=== PATIENT | female | born 1940 | race Caucasian/White ===

== ENCOUNTER 2017-04-16 10:42 | Inpatient (IN) | payer OTHER ==
[2017-04-16] VITALS (9 sets, daily range): BP systolic 105–133; BP diastolic 65–85; PULSE 88–111; TEMP 36.4–36.8; O2SAT 91–95; BMI 34.3
[~2017-04-16] VITALS: Ht 157.5 cm; Wt 82.6 kg
[2017-04-16] MEDS ORDERED: POLYETHYLENE (MIRALAX) 17 GM PACK PO PRN (14:00)
[2017-04-16] MEDS ORDERED: ONDANSETRON INJ 2 MG/ML 2 ML VIAL IV PRN (14:00)
[2017-04-16] MEDS ORDERED: LEVALBUTEROL 1.25MG/0.5ML NEB INH PRN (14:00)
[2017-04-16] MEDS ORDERED: MAGNESIUM HYDROXIDE SUSP 30 ML UDC PO PRN (14:00)
[2017-04-16] MEDS ORDERED: ALUMINUM/MAGNESIUM/SIMETH (MAALOX MAX) 30 ML UDC PO PRN (14:00)
[2017-04-16] MEDS ORDERED: GLUCOSE 10 TABS/TUBE PO PRN (14:30)
[2017-04-16] MEDS ORDERED: GLUCOSE 40% GEL 15 GM TUBE PO PRN (14:30)
[2017-04-16] MEDS ORDERED: DEXTROSE 50% 50 ML SYR IV PRN (14:30)
[2017-04-16] MEDS ORDERED: GLUCAGON FOR INJ 1 MG VIAL SQ PRN (14:30)
[2017-04-16 14:40] LABS: BASO % 0.1 %; BASO ABS # 0.01 K/uL (0-0.2); HEMATOCRIT 34.4 % (37-47); IG% 0.5 %; LYMPH % 4.4 %; LYMPH ABS # 0.67 K/uL (1.2-3.4); MEAN CELL VOLUME 84.9 fL (80-100); MEAN CORPUSCULAR HEMOGLOBIN 26.2 pg (25-34); MEAN PLATELET VOLUME 9.4 fL (7.4-10.4); MONO % 0.8 %; NEUT % 94.2 %; PLATELET COUNT 319 K/uL (130-400); RED BLOOD COUNT 4.05 M/uL (4.2-5.4); WHITE BLOOD COUNT 15.27 K/uL (4.8-10.8)
[2017-04-16] MEDS ORDERED: FLUT0.15 NAE (14:43)
[2017-04-16] MEDS ORDERED: CRDCD120 PO (14:43)
[2017-04-16] MEDS ORDERED: albuterol (14:43)
[2017-04-16] MEDS ORDERED: METF1000 PO (14:43)
[2017-04-16] MEDS ORDERED: TIOT1SPR INH (14:43)
[2017-04-16] MEDS ORDERED: LNX125 PO (14:43)
[2017-04-16] MEDS ORDERED: IPRA1AER2 INH (14:43)
[2017-04-16] MEDS ORDERED: WARF1TAB PO (14:43)
[2017-04-16] MEDS ORDERED: PRAV80TA2 PO (14:43)
[2017-04-16] MEDS ORDERED: ALPR0.25 PO (14:43)
[2017-04-16] MEDS ORDERED: LVMI SC (14:43)
[2017-04-16] MEDS ORDERED: FRS/40 PO (14:43)
[2017-04-16] MEDS ORDERED: CYM/30 PO (14:43)
[2017-04-16] MEDS ORDERED: FURO-85 PO (14:43)
[2017-04-16] MEDS ORDERED: QUIN10TA25 PO (14:43)
[2017-04-16] MEDS ORDERED: ASPI81TA28 PO (14:43)
[2017-04-16] MEDS ORDERED: MCRK20 PO (14:43)
[2017-04-16] MEDS ORDERED: ADVIN25050 INH (14:43)
[2017-04-16] MEDS ORDERED: MGNO400 PO (14:43)
[2017-04-16] MEDS ORDERED: ALBU18002 INH (14:43)
[2017-04-16 14:47] LABS: COMPLETE YES; MEAN CORPUSCULAR HGB CONC 30.8 g/dl (32-36)
[2017-04-16] MEDS ORDERED: DILT180C PO (14:51)
--- NOTE | 2017-04-16 14:58 | History and Physical ---
History & Physical Date & Time of Service: Apr 16, 2017 at 14:55 Chief Complaint: Copd Exacerbation, Hypoxia Primary Care Physician: Pool Patterson M.D. History of Present Illness Source: patient, hospital records Ms. Leahy is a 77 y/o female with PMHx of COPD, Interstitial Lung Disease, Pulmonary HTN, Diastolic CHF, Persistent Atrial Fibrillation, and T2DM who presents as a direct admission from [facility] for COPD exacerbation and possible pneumonia. Patient is a poor historian due to fixation on her daughter and her recent move and difficulty redirecting. Reviewed [facility] records, [employer], and discussed with patient. Approx. two weeks ago she reports progressively worsening cough and LAND. At baseline she wears 4 L NC and states she feels fine when at rest. With limited exertion she becomes dyspneic. She reports a productive cough of watery/yellow mucus and intermittent dime-sized hemoptysis intermittently. She was seen on 04/01 and again on 04/[address] Crystal as she was not improving. She was initiated on steroid therapy and Zithromax. She reports getting a nebulizer but has not utilized this yet but has been faithful with her inhalers. She also notes chest pain in R lower chest under her breast. Of note, patient's daughter that she recently moved in with was diagnosed with shingles recently but the patient had her vaccine. She reports fever/chills when at [facility] ED but feels this has resolved. She reports poor control of her glucose due to steroid therapy. At [facility], CTA without PE with evidence of parenchymal fibrosis and bilateral ground glass opacities with a R pleural effusion. She was initially started on Ceftriaxone and Zithromax but ultimately converted to Cefepime and Vancomycin. Initial labs revealed: leukocytosis of 20.8, H&H 10/32, BUN/Cr 15/0.7, Lactic 2.6, BNP 1105, and INR 4.89. Past Medical/Surgical History 1. COPD 2. Interstitial Lung Disease 3. Pulmonary HTN 4. Diastolic CHF 5. Persistent Atrial Fibrillation 6. T2DM Family History Brain Tumor Coronary Artery Disease Diabetes mellitus Social History Smoking Status: Never Smoker Smokeless Tobacco Use: No Alcohol Use: none Drug Use: none Marital Status: Housing status: lives with family Occupational Status: retired Immunizations History of Influenza Vaccine: Unknown History of Tetanus Vaccine?: Unknown History of Pneumococcal: Unknown History of Hepatitis B Vaccine: Unknown Multi-Drug Resistant Organisms History of MDRO: No Allergies Coded Allergies: Tomato (Verified Allergy, Unknown, Unknown, 04/16/17) Home Medications Scheduled Aspirin (Aspirin Ec), 81 MG PO DAILY Digoxin (Digoxin), 0.125 MG PO DAILY Diltiazem Hcl Coated Beads (Diltiazem Hcl Er), 1 CAP PO DAILY Duloxetine HCl (Cymbalta), 60 MG PO DAILY Fluticasone Prop/Salmeterol (Advair Diskus 250-50 Mcg/Dose), 1 PUFF INH BID Fluticasone Propionate (Nasal) (Flonase Allergy Relief), 2 SPRAYS JAMIN DAILY Furosemide (Lasix), 40 MG PO DAILY Insulin Detemir (Levemir), 15 UNITS SC HS Ipratropium-Albuterol (Combivent Respimat), 1 PUFFS INH QID Magnesium Oxide (Magnesium-Oxide), 400 MG PO DAILY Metformin Hcl (Glucophage), 1 TAB PO BID Potassium Chloride (Klor-Con M20), 10 MEQ PO DAILY Pravastatin Sodium (Pravastatin Sodium), 1 TAB PO DAILY Quinapril Hcl (Accupril), 10 MG PO HS Tiotropium [place] (Spiriva Respimat), 2 PUFF INH DAILY Warfarin Sodium (Coumadin), 1 MG PO DAILY Scheduled PRN Albuterol Sulfate (Proair Respiclick), 2 PUFFS INH Q6H PRN for SOB/Wheezing Alprazolam (Xanax), 0.25 TAB PO TID PRN for Anxiety Furosemide (Lasix), 20 MG PO DAILY PRN for weight gain Miscellaneous Medications [albuterol] Review of Systems Constitutional: + fever (resolved), + chills (resolved), + fatigue Eyes: No worsening of vision ENT: + problem reported (dry mouth), No nasal symptoms, No sore throat, No trouble swallowing Respiratory: + cough, + sputum (watery/yellow), + dyspnea on exertion, + hemoptysis, No dyspnea at rest Cardiovascular: + chest pain (R below the breast), No palpitations Abdomen: No pain, No nausea, No vomiting, No diarrhea, No constipation, No GI bleeding Musculoskeletal: No swelling, No calf pain Genitourinary - Female: No dysuria Psychiatric: + anxiety Hematologic / Lymphatic: No abnormal bleeding/bruising, No clotting problems Integumentary: No rash Physical Exam Vital Signs Date Time Temp Pulse Resp B/P (MAP) Pulse Ox O2 Delivery O2 Flow Rate FiO2 04/16/17 12:45 36.8 88 28 129/79 91 Nasal Cannula 4.0 04/16/17 12:20 36.6 106 32 133/81 (98) 91 Nasal Cannula 5.0 General Appearance: no apparent distress, + pertinent finding (chronically ill- appearing) Head: normocephalic, atraumatic Eyes: sclerae normal ENT: hearing grossly normal, + pertinent finding (oral mucosa dry) Neck: supple, no JVD, trachea midline Respiratory/Chest: no accessory muscle use, + respiratory distress (mild - pursed lip breathing), + decreased breath sounds (mid-bases bilat) Cardiovascular: no gallop, no murmur, + irregularly irregular Abdomen/GI: normal bowel sounds, non tender, soft Extremities/Musculoskelatal: no calf tenderness, no pedal edema, + swelling ( trace bilat lower extremities) Neurologic/Psych: alert, oriented x 3 Skin: warm/dry, + pallor Diagnostics Laboratory Results Results Past 24 Hours Test 04/16/17 14:21 04/16/17 14:43 Range/Units White Blood Count 15.27 4.8-10.8 K/uL Red Blood Count 4.05 4.2-5.4 M/uL Hemoglobin 10.6 12.0-16.0 g/dL Hematocrit 34.4 37-47 % Mean Corpuscular Volume 84.9 80-100 fL Mean Corpuscular Hemoglobin 26.2 25-34 pg Mean Corpuscular Hemoglobin Concent 30.8 32-36 g/dl Platelet Count 319 130-400 K/uL Mean Platelet Volume 9.4 7.4-10.4 fL Neutrophils (%) (Auto) 94.2 % Lymphocytes (%) (Auto) 4.4 % Monocytes (%) (Auto) 0.8 % Eosinophils (%) (Auto) 0.0 % Basophils (%) (Auto) 0.1 % Neutrophils # (Auto) 14.39 1.4-6.5 K/uL Lymphocytes # (Auto) 0.67 1.2-3.4 K/uL Monocytes # (Auto) 0.12 0.11-0.59 K/uL Eosinophils # (Auto) 0.00 0-0.5 K/uL Basophils # (Auto) 0.01 0-0.2 K/uL RDW Standard Deviation 50.7 36.4-46.3 fL RDW Coefficient of Variation 16.4 11.5-14.5 % Immature Granulocyte % (Auto) 0.5 % Immature Granulocyte # (Auto) 0.08 0.00-0.02 K/uL Bedside Glucose 442 70-90 mg/dl Diagnostic Radiology CHEST ONE VIEW PORTABLE FINDINGS: Moderate cardiomegaly. Diffuse bilateral parenchymal infiltrative change versus pulmonary edema. Mild mid mediastinal fullness possibly reactive. IMPRESSION: Diffuse bilateral parenchymal infiltrates versus pulmonary edema. EKG Atrial fibrillation with rapid ventricular response Abnormal ECG No previous ECGs available Impression Assessment and Plan Ms. Leahy is a 77 y/o female with PMHx of COPD, Interstitial Lung Disease, Pulmonary HTN, Diastolic CHF, Persistent Atrial Fibrillation, and T2DM who presents as a direct admission from [facility] for COPD exacerbation and possible pneumonia. Sepsis from HCAP: - Cefepime 2 g IV BID, Levaquin 750 mg IV daily, and Vancomycin COPD Exacerbation: - Pursed-lip breathing on exam but no wheezing and good airflow in upper portions of lungs - may be more pulmonary HTN complicating presentation - Had Solu-Medrol 125 x 2 doses at [facility] - will hold further systemic steroids and Advair and utilize Pulmicort respules to help control glucose - may need reimplemented if limited response - Xopenex/Atrovent - Spiriva 1 puf daily Pulmonary HTN/Interstitial Lung Disease: - On chronic 4 L Atrial Fibrillation with RVR: - Digoxin 0.125 mg daily, Diltiazem XL 180 mg daily, Supratherapeutic INR: - INR 4.89 without bleeding - reports intermittent dime-sized mucous with blood that is improving -- Monitor for bleeding no immediate need for reversal at this time - Hold Coumadin and trend INR T2DM: UNCONTROLLED - Initiate insulin gtt at least for the first 24 hours to obtain better control and wean to Lantus/SSI coverage - Appreciate glycemic assistance Shingles Exposure: Immunocompromised - Has required frequent steroids for underlying lung disease and daughter with recent eruption of shingles - patient is vaccinated - Has R chest pain under the breast without lesions - likely from coughing and illness but possible preherpatic neuralgia - Acyclovir 500 mg IV Q8H HTN: - Enalapril 10 mg daily Chronic Diastolic CHF: - Mucous membranes dry and imaging from [facility] supports some pulmonary congestion however patient appears dry - 500 cc bolus and run fluids at 75 mL/hr x 2 bags - Implement home dose lasix of 40 mg daily and 20 mg PRN for weight gain unless needing more hydration DVT Prophylaxis: SCDs/Supratherapeutic INR Code Status: FULL RESUSCITATION Disposition: - Recently moved in with daughter - was living in [place] with other family - PT/OT evaluations when respiratory status improved and consult community mental health social worker Attending Addendum: I have physically seen and examined this patient, have directed the physician assistants medical activities, and agree with the H&P as noted above with the following exceptions as noted. The patient is awake, alert and oriented 3, appears chronically ill, normocephalic and atraumatic, lying in bed and in no acute distress. HEENT--PERRL, EOMI, mucous membranes and oropharynx dry. Neck--supple, no JVD or bruits, thyroid normal, trachea midline, no adenopathy. Heart--irregularly irregular, no murmurs, rubs or gallops. Lungs-- decreased breath sounds bilaterally, a few coarse breath sounds, no respiratory distress, no accessory muscle use. Abdomen--normal bowel sounds and soft, nontender and nondistended, no hernias or masses, no organomegaly. Extremities--no cyanosis, clubbing. Trace bilateral pretibial pitting Edema. There are good distal pulses b/l. Dermatologic--normal skin turgor, mild pallor,, warm and dry, no abnormal lymph nodes, no rash. Neurologic--cranial nerves II through XII grossly intact. Rheumatologic--normal range of motion, nontender, muscles and joints. Psychiatric--normal affect. Assessment and Plan: Sepsis from healthcare associated pneumonia/COPD exacerbation/pulmonary hypertension/ILD-- Cefepime 2 g IV twice a day Levaquin 750 mg IV daily Vancomycin IV per renal dosing Xopenex/Atrovent every 6 hours while awake and every 2 hours when necessary. Pulmicort Respules 0.5 mg inhaled twice a day. Received Solu-Medrol 125 mg IV 2 while at [facility]. Would avoid any further IV or oral steroids due to significant hyperglycemia. Atrial fibrillation/hypertension/chronic diastolic CHF-- Digoxin 0.125 mg by mouth daily Diltiazem XL 180 mg by mouth daily. Enalapril 10 mg by mouth daily. Looks very dehydrated at this time. Hold Lasix at this time, and gently rehydrate with normal saline at 75 ML's per hour. Should help rate control. Lopressor 5 mg IV every 4 hours when necessary heart rate greater than 110. INR mildly supratherapeutic at 4.89. Hold any further Coumadin and trend INR. No signs of bleeding. Diabetes mellitus-- Insulin drip is been initiated Shingles exposure in an immunocompromised patient-- Possible pre-herpetic neuralgia with pain in her right breast Place on empiric acyclovir. Level of Care Telemetry Advanced Directives Existing Advance Directive: No Existing Living Will: Yes (Patient states that it is in "[place].") Existing Power of School Psychologist Assistant: No Resuscitation Status FULL RESUSCITATION VTE Prophylaxis VTE Risk Assessment Done? Y/N: Yes Risk Level: Moderate Given or contraindicated: Warfarin (Coumadin), T.E.D. Stockings, SCD's Social Service Consult None Apply
[2017-04-16] MEDS ORDERED: ALPRAZOLAM 0.25 MG TAB PO PRN (15:00)
[2017-04-16] MEDS ORDERED: FUROSEMIDE 20 MG TAB PO PRN (15:00)
[2017-04-16 15:05] LABS: ALB/GLOB RATIO 0.8 (0.9-2); ALKALINE PHOSPHATASE 97 U/L (45-117); ALT/SGPT 23 U/L (12-78); AST/SGOT 19 U/L (15-37); BLOOD UREA NITROGEN 15 mg/dl (7-18); BUN/CREATININE RATIO 15.3 (10-20); CALCIUM 9.1 mg/dl (8.5-10.1); CARBON DIOXIDE 21 mmol/L (21-32); CHLORIDE 100 mmol/L (98-107); CREATININE 0.96 mg/dl (0.60-1.20); GLUCOSE 428 mg/dl (70-99); MAGNESIUM 1.6 mg/dl (1.8-2.4); POTASSIUM 3.8 mmol/L (3.5-5.1); SODIUM 136 mmol/L (136-145)
[2017-04-16 15:09] LABS: INR 4.9 (0.9-1.1); PROTHROMBIN TIME (PATIENT) 56.1 SECONDS (9.0-12.0)
[2017-04-16] MEDS ORDERED: INSULIN ASPART 100 UNITS/ML 3 ML PEN SC ONE (15:15)
[2017-04-16 15:20] LABS: BETA-HYDROXYBUTYRATE 1.16 mg/dL (0.2-2.81)
[2017-04-16] MEDS ORDERED: SODIUM CHLORIDE 0.9% 500ML 500 ML IV ONE (15:30)
[2017-04-16] MEDS ORDERED: INFLUENZA VACCINE HIGH DOSE 65+ 0.5 ML SYR IM. ONE (15:30)
[2017-04-16] MEDS ORDERED: PHARMACY GLYCEMIC MGMT CONSULT PRN (15:31)
[2017-04-16] MEDS ORDERED: INSULIN HUMAN REGULAR IV BOLUS 2 UNIT in SYRINGE 0 ML IV SCH (15:45)
[2017-04-16] MEDS ORDERED: CEFEPIME CONSULT ACTIVE PRN ×2 (16:00)
[2017-04-16] MEDS ORDERED: METHYLPREDNISOLONE IV 60 MG in SYRINGE 0 ML IV SCH (16:00)
[2017-04-16] MEDS ORDERED: PIPERACILL/TAZOBAC CONSULT ACTIVE PRN (16:00)
[2017-04-16] MEDS ORDERED: VANCOMYCIN CONSULT ACTIVE PRN (16:00)
[2017-04-16] MEDS ORDERED: LEVOFLOXACIN CONSULT ACTIVE PRN (16:00)
[2017-04-16] MEDS ORDERED: INFLUENZA ADMINISTRATION CHARGE ONE (16:00)
--- NOTE | 2017-04-16 16:03 | Pharmacy Progress Note ---
Pharmacy Abx Initial Consult Date of Service Apr 16, 2017. Pharmacy Dosing Scope Date of Consult: 04/16/17 Consultation requested by: Daja Gaspar PA-C Pharmacy is consulted to initiate Vancomycin/Levaquin/Cefepime IV dosing therapy , order appropriate labs and adjust drug dose/frequency. Subjective The patient is a 77 year old female admitted on Apr 16, 2017 at 12:35. Objective Height (Feet): 5 Height (Inches): 2.00 Weight (Kilograms): 84.000 Vital Signs (Past 12Hrs) Vital Signs Past 12 Hours Date Time Temp Pulse Resp B/P (MAP) Pulse Ox O2 Delivery O2 Flow Rate FiO2 04/16/17 14:54 36.4 111 20 128/85 (99) 95 Room Air 5.0 04/16/17 12:45 36.8 88 28 129/79 91 Nasal Cannula 4.0 04/16/17 12:20 36.6 106 32 133/81 (98) 91 Nasal Cannula 5.0 Lab Results (24Hrs) Laboratory Tests (24 Hours) Test 04/16/17 14:21 White Blood Count 15.27 K/uL (4.8-10.8) H Red Blood Count 4.05 M/uL (4.2-5.4) L Hemoglobin 10.6 g/dL (12.0-16.0) L Hematocrit 34.4 % (37-47) L Mean Corpuscular Volume 84.9 fL (80-100) Mean Corpuscular Hemoglobin 26.2 pg (25-34) Mean Corpuscular Hemoglobin Concent 30.8 g/dl (32-36) L Platelet Count 319 K/uL (130-400) Mean Platelet Volume 9.4 fL (7.4-10.4) Neutrophils (%) (Auto) 94.2 % Lymphocytes (%) (Auto) 4.4 % Monocytes (%) (Auto) 0.8 % Eosinophils (%) (Auto) 0.0 % Basophils (%) (Auto) 0.1 % Neutrophils # (Auto) 14.39 K/uL (1.4-6.5) H Lymphocytes # (Auto) 0.67 K/uL (1.2-3.4) L Monocytes # (Auto) 0.12 K/uL (0.11-0.59) Eosinophils # (Auto) 0.00 K/uL (0-0.5) Basophils # (Auto) 0.01 K/uL (0-0.2) Assessment & Plan Assessment 77 year old female direct admit from [facility] initiated on Vancomycin/Levaquin/ Cefepime/Acyclovir IV. Pt with presumed healthcare associated pneumonia. Will follow up details in next 24 hours. No cultures ordered. MRSA swab added. Plan Vancomycin IV * Loading dose: 1000 mg prior to arrival to ED ~0930 * Maintenance dose: 1250 mg IV (15 mg/kg) every 18 hours, start now due to insufficient loading dose at outside facility * Goal trough level for lung source: 15 to 20 mcg/mL * Trough level ordered for 04/18/17 prior to 2000 dose. Levaquin * 750 mg IV daily * Reduce tomorrow if CrCl remains <50 mL/min Cefepime * 1 g IV X 1 at outside facility at 0800 * Continue 2g IV every 12 hours for current renal function Acyclovir * In obesity, use IBW * Reduce to 500 mg IV every 8 hours Pharmacy will continue to follow and will adjust dose/frequency as necessary. Thank you.
[2017-04-16] MEDS ORDERED: MAGNESIUM SULFATE 1GM / D5W 1 GM in PREMIXED IN D5W 100 ML IV ONE (16:15)
--- NOTE | 2017-04-16 16:24 | DIAGNOSTIC IMAGING REPORT ---
CHEST ONE VIEW PORTABLE CLINICAL HISTORY: Dyspnea dyspnea COMPARISON STUDY: No previous studies for comparison. FINDINGS: Moderate cardiomegaly. Diffuse bilateral parenchymal infiltrative change versus pulmonary edema. Mild mid mediastinal fullness possibly reactive. IMPRESSION: Diffuse bilateral parenchymal infiltrates versus pulmonary edema. The above report was generated using voice recognition software. It may contain grammatical, syntax or spelling errors. Electronically signed by: Roger Magana M.D. 04/16/2017 4:22 PM Dictated Date/Time: 04/16/2017 4:21 PM
[2017-04-16] MEDS: LEVOFLOXACIN / D5W 750 MG in PREMIXED IN D5W 150 ML IV SCH (16:25)
[2017-04-16] MEDS: SODIUM CHLORIDE 0.9% 1000ML 1,000 ML IV SCH ×2 (16:26→23:50)
[2017-04-16] MEDS: INSULIN REGULAR 250 UNITS in SODIUM CHLORIDE 0.9% 250ML 250 ML IV SCH ×7 (16:29→23:50)
[2017-04-16] MEDS ORDERED: INSULIN ASPART 100 UNITS/ML 3 ML PEN SC SCH (16:30)
--- NOTE | 2017-04-16 16:45 | Pharmacy Progress Note ---
Glycemic Control Intl Consult Date of Service Apr 16, 2017. Scope Glycemic Pharmacist consulted by Daja Gaspar on 04/16/17 for glycemic control and to write orders per LT[facility], located within [facility] inpatient glycemic control protocol Objective Weight (Kilograms): 84.000 Accuchecks BSG (last 24hrs): Test 04/16/17 14:21 04/16/17 14:43 Random Glucose 428 mg/dl (70-99) Bedside Glucose 442 mg/dl (70-90) Laboratory Data (last 24hrs) Test 04/16/17 14:21 Anion Gap 15.0 mmol/L BUN/Creatinine Ratio 15.3 Blood Urea Nitrogen 15 mg/dl Creatinine 0.96 mg/dl Potassium Level 3.8 mmol/L Sodium Level 136 mmol/L White Blood Count 15.27 K/uL Red Blood Count 4.05 M/uL Hemoglobin 10.6 g/dL Hematocrit 34.4 % Mean Corpuscular Volume 84.9 fL Mean Corpuscular Hemoglobin 26.2 pg Mean Corpuscular Hemoglobin Concent 30.8 g/dl Platelet Count 319 K/uL Mean Platelet Volume 9.4 fL Neutrophils (%) (Auto) 94.2 % Lymphocytes (%) (Auto) 4.4 % Monocytes (%) (Auto) 0.8 % Eosinophils (%) (Auto) 0.0 % Basophils (%) (Auto) 0.1 % Neutrophils # (Auto) 14.39 K/uL Lymphocytes # (Auto) 0.67 K/uL Monocytes # (Auto) 0.12 K/uL Eosinophils # (Auto) 0.00 K/uL Basophils # (Auto) 0.01 K/uL Recent Pertinent Medications Outpatient Anti-diabetic Regimen: * Levemir 15 units qHS + metformin 1 gm PO BID Risk Factors for Insulin Resistance: * Steroids: Solu- Medrol 60 mg IV q 8 hours ---> currently on hold * Infection: COPD exacerbation (on vancomycin, cefepime, levaquin) and possible shingles (on acyclovir) * Diet: type 2 diet Assessment & Plan ASSESSMENT: * ADA & AACE recommend a goal blood sugar range 140-180 mg/dl for the majority of critically ill & non-critically ill patients. However, more stringent targets may be selected in individual cases. Will utilize more stringent goal of 100-150mg/dl based on patient age & comorbidities. Additionally, tighter glycemic control is warranted to facilitate infection healing. * Ms Leahy is a 77 y/o F with a PMH of COPD, intersitital lung disease, CHF, and Afib who is admitted for a COPD exacerbation. Per patient, she has haddifficult controlling her blood sugars at home secondary to steroid use. On admission, the patient's blood sugar was over 400 mg/dL. She was initially ordered steroids but then these were held. Home dose of Levemir was continued to prevent a basal deficiency. Will initiate an insulin infusion to obtain glycemic control quickly. PLAN FOR INPATIENT GLYCEMIC CONTROL: * Starting IV insulin infusion per moderate (moderate/severe) stress protocol * Goal Range 100 - 150 mg/dl * In the critical care setting, continuous IV insulin infusion has been shown to be the best method for achieving glycemic targets. * Holding outpatient oral diabetes medications * Basal insulin with LANTUS 15 units SQ HS * Please note that the plan above was derived based on current level of insulin resistance and hospital stress. These recommendations are appropriate for inpatient admission only. Plan of care upon discharge will need to be reassessed to avoid potential outpatient hypo/hyperglycemia. Thank you.
[2017-04-16] MEDS: LEVALBUTEROL 1.25MG/0.5ML NEB INH SCH ×2 (17:41→20:09)
[2017-04-16] MEDS: IPRATROPIUM BROMIDE NEB SOLN 0.02% 2.5 ML VIAL INH SCH ×2 (17:41→20:09)
--- NOTE | 2017-04-16 17:51 | Pulmonary Consultation ---
History General Date of Service: Apr 16, 2017. Stated Complaint: Copd Exacerbation, Hypoxia HPI The patient is a 77 year old female who presents to [facility] with complaints of Copd Exacerbation, Hypoxia. The patient's primary care provider is Pool Patterson M.D.. Ms. Leahy is a 77-year-old female with past medical history of diabetes, who carries a diagnosis of COPD (no documented FEV1) with superimposed interstitial lung disease on 4L NC, chronic atrial fibrillation (on Coumadin), mitral regurgitation grade 3 diastolic dysfunction with elevated pulmonary artery systolic pressures (estimated 60 mmHg) , who presents today as a direct admit from [facility]. She was initially hospitalized for several days in January of this year at [facility] for COPD exacerbation, but hasn't really turned back to her functional baseline status. She states that she has been progressively more short of breath at rest and on exertion. Her exercise tolerance is limited to about 10 steps. She admits to chronic cough associated with whitish sputum production. She denies any orthopnea, or lower extremity edema swelling. Patient was last seen by Dr. Patterson on 04/14/2017. Her home medications include Spiriva 2.5 g per inhalation 2 puffs daily, Advair Diskus 250/50 over 50 one puff twice a day and Combivent Respimat one puff 4 times a day when necessary. She was started on albuterol sulfate nebulizer every 4-6 hours, Z- Hitesh, prednisone 20 mg by mouth twice a day. Overnight on 04/15/2017, patient states that she had increasing shortness of breath associated with right-sided pleuritic chest pain. She states that throughout the course of the day she had episodes of coughing with blood- streaked sputum. However this morning noted to cough up about a dime-sized amount of blood. She called her daughter who prompted her to go to the ER for further evaluation. Chest x-ray showed cardiomegaly with bilateral perihilar, bibasilar airspace disease with chronic interstitial changes. CT chest was done to rule out pulmonary embolism, which was negative. However it showed diffuse parenchymal fibrosis in the lungs with bilateral groundglass opacities. There is also noted to be a right-sided pleural effusion and increased from previous study. Upon arrival to [facility], her initial vital signs were temperature 36.6, pulse 106, respiratory rate of 32, blood pressure 133/81 and saturating 91% on 5 L nasal cannula. Laboratory data showed a sodium of 136, potassium 3.8, chloride of 100, carbon dioxide 21, BUN of 15, creatinine 0.96, random glucose level of 428. POC glucose was 442. Magnesium 1.6. Beta hydroxybutyric acid was 1.16. Troponin is less than 0.015. Anion gap 15. White blood cell count 15, hemoglobin of 10.6, platelet count of 319. Coags showed an INR of 4.9 and PTT of 56.1. EKG showed atrial fibrillation with ventricular rate of 106, There are no ST elevations or T-wave abnormalities present. Historian: patient, other ( EMR) Onset: this morning Severity: moderate Complaint Status: persistent Quality of Pain: sharp Review of Systems Constitutional: reports: as stated in HPI Eyes: reports: as stated in HPI ENT: reports: as stated in HPI Cardiovascular: reports: as stated in HPI Respiratory: reports: as stated in HPI Gastrointestinal: reports: as stated in HPI Genitourinary - Female: reports: as stated in HPI Musculoskeletal: reports: as stated in HPI (a) Integumentary: reports: as stated in HPI Neurologic: reports: as stated in HPI Psychiatric: reports: as stated in HPI Endocrine: as stated in HPI Hematologic / Lymphatic: as stated in HPI Allergic / Immunologic: as stated in HPI All Other Symptoms All Other Systems: Reviewed and Negative Past Medical History Past Medical History: Active Problems 1. Cataract (H26.9) 2. Chronic GERD (K21.9) 3. COPD (chronic obstructive pulmonary disease) with chronic bronchitis (J44.9) 4. Depression (F32.9) 5. Diabetes (E11.9) 6. Hypertension (I10) 7. Interstitial lung disease (J84.9) 8. Pulmonary hypertension (I27.2) Past Medical History 1. History of congestive heart failure (Z86.79) Past Surgical History: Surgical History 1. History of appendectomy 2. History of carpal tunnel surgery 3. History of cholecystectomy 4. History of rotator cuff repair 5. History of tonsillectomy Family History Family History 1. Family history of cardiac disorder-mother 2. Family history of diabetes mellitus-mother 3. Family history of Brain tumor (father) Social History Social History No alcohol use Non smoker, but does admit to long history of second hand smoke exposure HeOriginally from [facility]. Previously worked as a hairdresser Hx Tobacco Use In Past Year?: No Smoking Status: Never Smoker Marital status: Housing status: lives with family Occupational Status: retired Allergies Coded Allergies: Tomato (Verified Allergy, Unknown, Unknown, 04/16/17) Current Medications Reported Home Medications Medications Dose Route/Sig Max Daily Dose Days Date Category Diltiazem Hcl Er (Diltiazem Hcl Coated Beads) 180 Mg Cap 1 Cap PO DAILY 30 04/16/17 Reported Proair Respiclick (Albuterol Sulfate) 108 Mcg/Act Aer 2 Puffs INH Q6H PRN 04/16/17 Reported [albuterol] 04/16/17 Reported Pravastatin Sodium 80 Mg Tab 1 Tab PO DAILY 30 04/16/17 Reported Levemir (Insulin Detemir) 100 Units/Ml Inj 15 Units SC HS 04/16/17 Reported Spiriva Respimat (Tiotropium Rover) 2.5 Mcg/Act Spr 2 Puff INH DAILY 04/16/17 Reported Lasix (Furosemide) 20 Mg Tab 20 Mg PO DAILY PRN 04/16/17 Reported Lasix (Furosemide) 40 Mg Tab 40 Mg PO DAILY 04/16/17 Reported Coumadin (Warfarin Sodium) 1 Mg Tab 1 Mg PO DAILY 04/16/17 Reported Klor-Con M20 (Potassium Chloride) 20 Meq Tabcr 10 Meq PO DAILY 04/16/17 Reported Magnesium-Oxide (Magnesium Oxide) 400 Mg Tab 400 Mg PO DAILY 04/16/17 Reported Flonase Allergy Relief (Fluticasone Propionate (Nasal)) 50 Mcg/Act Spr 2 Sprays JAMIN DAILY 04/16/17 Reported Cymbalta (Duloxetine HCl) 30 Mg Cap 60 Mg PO DAILY 04/16/17 Reported Advair Diskus 250-50 Mcg/Dose (Fluticasone Prop/Salmeterol) 14 Puff/1 Inhaler Aerp 1 Puff INH BID 04/16/17 Reported Combivent Respimat (Ipratropium-Albuterol) 1 Aer Aer 1 Puffs INH QID 04/16/17 Reported Aspirin Ec (Aspirin) 81 Mg Tab 81 Mg PO DAILY 04/16/17 Reported Glucophage (Metformin Hcl) 1,000 Mg Tab 1 Tab PO BID 30 04/16/17 Reported Digoxin 0.125 Mg Tab 0.125 Mg PO DAILY 04/16/17 Reported Accupril (Quinapril HCl) 10 Mg Tab 10 Mg PO HS 04/16/17 Reported Xanax (Alprazolam) 0.25 Mg Tab 0.25 Tab PO TID PRN 04/16/17 Reported Physical Physical Exam Vital Signs: Date Time Temp Pulse Resp B/P (MAP) Pulse Ox O2 Delivery O2 Flow Rate FiO2 04/16/17 14:54 36.4 111 20 128/85 (99) 95 Room Air 5.0 04/16/17 12:45 36.8 88 28 129/79 91 Nasal Cannula 4.0 04/16/17 12:20 36.6 106 32 133/81 (98) 91 Nasal Cannula 5.0 General Appearance: WD/WN, NO APPARENT DISTRESS, other (fatigue) Head: NORMOCEPHALIC, ATRAUMATIC Eyes: PERRLA, NO DISCHARGE, EOMI, SCLERAE NORMAL, CONJUNCTIVAE NORMAL ENT: other (oral mucousa dry) Neck: NORMAL RANGE OF MOTION, NO TENDERNESS, TRACHEA MIDLINE, NO STRIDOR, SUPPLE Respiratory: NO RESPIRATORY DISTRESS, accessory muscle use, other (good air entry bilaterally, fine crackles at bases. No respiratory distress, speaking in full sentences.) Cardiovasular: NORMAL S1S2, irregular rate Abdomen: NON TENDER, NORMAL BOWEL SOUNDS Back: NORMAL INSPECTION Upper Extremities: NO EDEMA, NORMAL ROM Lower Extremities: NO EDEMA, NORMAL ROM, other (chronic venous changes) Pulses: dorsalis pedis (R) (2+), dorsalis pedis (L) (2+) Neuro: ALERT, ORIENTED x 3 Psychiatric: NORMAL AFFECT, NO SUICIDAL IDEATION, CONTRACTS FOR SAFETY Diagnostics Labs Results Past 24 Hours Test 04/16/17 14:21 04/16/17 14:43 Range/Units White Blood Count 15.27 4.8-10.8 K/uL Red Blood Count 4.05 4.2-5.4 M/uL Hemoglobin 10.6 12.0-16.0 g/dL Hematocrit 34.4 37-47 % Mean Corpuscular Volume 84.9 80-100 fL Mean Corpuscular Hemoglobin 26.2 25-34 pg Mean Corpuscular Hemoglobin Concent 30.8 32-36 g/dl Platelet Count 319 130-400 K/uL Mean Platelet Volume 9.4 7.4-10.4 fL Neutrophils (%) (Auto) 94.2 % Lymphocytes (%) (Auto) 4.4 % Monocytes (%) (Auto) 0.8 % Eosinophils (%) (Auto) 0.0 % Basophils (%) (Auto) 0.1 % Neutrophils # (Auto) 14.39 1.4-6.5 K/uL Lymphocytes # (Auto) 0.67 1.2-3.4 K/uL Monocytes # (Auto) 0.12 0.11-0.59 K/uL Eosinophils # (Auto) 0.00 0-0.5 K/uL Basophils # (Auto) 0.01 0-0.2 K/uL RDW Standard Deviation 50.7 36.4-46.3 fL RDW Coefficient of Variation 16.4 11.5-14.5 % Immature Granulocyte % (Auto) 0.5 % Immature Granulocyte # (Auto) 0.08 0.00-0.02 K/uL Prothrombin Time 56.1 9.0-12.0 SECONDS Prothromb Time International Ratio 4.9 0.9-1.1 Sodium Level 136 136-145 mmol/L Potassium Level 3.8 3.5-5.1 mmol/L Chloride Level 100 98-107 mmol/L Carbon Dioxide Level 21 21-32 mmol/L Anion Gap 15.0 3-11 mmol/L Blood Urea Nitrogen 15 7-18 mg/dl Creatinine 0.96 0.60-1.20 mg/dl Est Creatinine Clear Calc Drug Dose 47.8 ml/min Estimated GFR () 65.2 Estimated GFR (Non- 56.2 BUN/Creatinine Ratio 15.3 10-20 Random Glucose 428 70-99 mg/dl Calcium Level 9.1 8.5-10.1 mg/dl Magnesium Level 1.6 1.8-2.4 mg/dl Total Bilirubin 0.4 0.2-1 mg/dl Aspartate Amino Transf (AST/SGOT) 19 15-37 U/L Alanine Aminotransferase (ALT/SGPT) 23 12-78 U/L Alkaline Phosphatase 97 45-117 U/L Troponin I < 0.015 0-0.045 ng/ml Total Protein 7.6 6.4-8.2 gm/dl Albumin 3.3 3.4-5.0 gm/dl Globulin 4.3 2.5-4.0 gm/dl Albumin/Globulin Ratio 0.8 0.9-2 Beta-Hydroxybutyric Acid 1.16 0.2-2.81 mg/dL Bedside Glucose 442 70-90 mg/dl Diagnostic Radiology Chest x-ray 04/16/2017 ([facility]) Findings: The cardiomediastinal silhouette is enlarged, but stable in size. Calcified plaque is seen in the aorta. There are bilateral perihilar airspace opacities. Patchy airspace opacities are seen in the lung bases. There are no pleural effusions. There is no pneumothorax. No acute osseous process. Osseous structures osteopenic Impression: Cardiomegaly with bilateral perihilar and basilar airspace disease and chronic interstitial changes. Findings may represent multilobar pneumonia. CT angiogram chest 04/16/2017 ([facility]) Findings: Pulmonary arteries are adequately opacified without acute or chronic filling defects. The thoracic aorta is normal in course and caliber without dissection or aneurysm. The heart is normal in size without pericardial effusion. Pretracheal and AP window lymph nodes, subcarinal and right hilar nodes and left infrahilar nodes are enlarged and unchanged. There is considerable right-sided parenchymal fibrosis with diffuse groundglass opacities similar to the prior study. There is a small to moderate size right pleural effusion which is increased in size since prior study. Multiple left-sided groundglass opacities are again identified and unchanged. All these could reflect areas of pulmonary edema. The upper abdomen demonstrates no acute pathology. There are no acute fractures. No suspicious bony lesions. Impression: No evidence of pulmonary emboli. There are areas of parenchymal fibrosis the lungs. Groundglass opacities bilaterally are relatively extensive. These could reflect areas of pulmonary edema. These are unchanged. Right-sided pleural effusion is markedly larger. Findings could reflect congestive heart failure. Bilateral hilar and mediastinal lymphadenopathy is unchanged. Impression Assessment and Plan Acute on chronic hypoxemic respiratory failure Pulmonary fibrosis Diastolic CHF Right pleural effusion Hemoptysis Supratherapeutic INR Uncontrolled diabetes She is currently being treated for COPD with superimposed pulmonary fibrosis and pulmonary hypertension by Dr. Patterson. It appears that she is having some progression of disease with diffuse groundglass opacities. This can be seen in pulmonary edema as well. However, clinically she appears dehydrated. Continue supplemental oxygen to maintain an SaO2 above 92%.Obtain ABG. If she should decompensate have the area of BiPAP at bedside. Obtain BNP, Repeat TTE to evaluate cardiac function and valvular abnormalities and right heart pressures. Optimize patients cardiac function with rate control. Hemoptysis--I do not feel this is an intrinsic pulmonary pathology, like a vasculitis but rather due to bleeding from supratherapeutic INR. Therefore I would hold Coumadin. If patient should have any further episodes of hemoptysis I would give the vitamin K. I would like to obtain sputum cultures to rule out infectious etiology. I will give Tesselon perles to decrease cough. I will also send for JACKIE, ANCA, CCP, WILDLIFE REMOVAL SPECIALIST, RF, ESR, CRP, and complement. In the interim continue with broad-spectrum antibiotics as she has had recent hospitalization. Leukocytosis is most likely due to recent steroid use an outpatient. I would also continue with corticosteroids, bronchodilators. She will optimization of hyperglycemic regimen--as she is hyperglycemic, mildly dehydrated with an mildly elevated anion gap. This will be tricky as she needs hydration for increased AG and elevated sugars. Once she is adequately resuscitated. I would resume diuretics and keep in negative balance. I will leave this management to primary team. I do not feel the patient is a candidate for bronchoscopy due to high oxygen requirements and supratherapeutic INR. She should have a full PFT and sleep study done done at some point as an outpatient. Once more clinically stable she may be a candidate for possible transbronchial biopsy versus open lung biopsy for pulmonary fibrosis. I appreciate th consult.
[2017-04-16] MEDS: INSULIN ASPART 100 UNITS/ML 3 ML PEN SC SCH ×2 (18:00→20:38)
[2017-04-16] MEDS: VANCOMYCIN INJ 1,250 MG in SODIUM CHLORIDE 0.9% 250ML 250 ML IV SCH (18:03)
[2017-04-16 18:34] LABS: ARTERIAL BLD GAS O2 SATURATION 93.5 % (90-95); ARTERIAL BLOOD GAS BASE EXCESS 0.2 mEq/L (-9-1.8); ARTERIAL BLOOD GAS HCO3 24 mmol/L (19-24); ARTERIAL BLOOD GAS PO2 73 mm/Hg (80-95); ARTERIAL BLOOD GAS pH 7.47 (7.35-7.45)
[2017-04-16 18:35] LABS: ALLEN TEST POS (POS); O2 ADMINISTRATION 4L
[2017-04-16 18:54] LABS: C-REACTIVE PROTEIN 5.24 mg/dl (0-0.29); RHEUMATOID FACTOR < 10.0 U/mL (0-15)
[2017-04-16] MEDS ORDERED: NURSING DECISION MEDICATION ORDER SCH (19:30)
[2017-04-16] MEDS: CEFEPIME IV 2,000 MG in DEXTROSE 5% 100ML 100 ML IV SCH (19:36)
[2017-04-16] MEDS: BUDESONIDE 0.5 MG/2 ML VIAL (PULMICORT) INH SCH (20:09)
[2017-04-16] MEDS: DEXTROSE 5% IV SCH (20:13)
[2017-04-16] MEDS: ACYCLOVIR SOD IV SCH (20:13)
[2017-04-16] MEDS ORDERED: NURSING VERBAL MED ORDER ONE ×2 (20:30→22:15)
[2017-04-16] MEDS: BENZONATATE 100MG CAP PO SCH (20:34)
[2017-04-16] MEDS: PRAVASTATIN SOD 40 MG TAB PO SCH (20:36)
[2017-04-16] MEDS: ENALAPRIL MALEATE 10 MG TAB PO SCH (20:36)
[2017-04-16] MEDS ORDERED: INSULIN GLARGINE SOLOSTAR 100 UNITS/ML 3 ML PEN SC SCH (21:00)
[2017-04-16] MEDS ORDERED: INSULIN DETEMIR FLEXPEN/FLEX TOUCH 100 UNITS/ML 3ML SC SCH (21:00)
[2017-04-16] MEDS ORDERED: FLUTICASONE/SALMETEROL 250/50 (ADVAIR) 14 PUFF/1 INHALER INH SCH (21:00)
[2017-04-17] VITALS (14 sets, daily range): BP systolic 91–120; BP diastolic 53–73; PULSE 67–122; TEMP 36.3–36.6; O2SAT 81–96; BMI 34.4
[2017-04-17] MEDS ORDERED: NURSING VERBAL MED ORDER ONE
[2017-04-17] MEDS: IPRATROPIUM BROMIDE NEB SOLN 0.02% 2.5 ML VIAL INH SCH ×4 (01:50→18:58)
[2017-04-17] MEDS: LEVALBUTEROL 1.25MG/0.5ML NEB INH SCH ×4 (01:51→18:58)
[2017-04-17] MEDS: INSULIN REGULAR 250 UNITS in SODIUM CHLORIDE 0.9% 250ML 250 ML IV SCH ×4 (02:51→15:47)
[2017-04-17] MEDS: ACYCLOVIR SOD IV SCH ×3 (04:11→20:35)
[2017-04-17] MEDS: DEXTROSE 5% IV SCH ×3 (04:11→20:35)
[2017-04-17] MEDS: CEFEPIME IV 2,000 MG in DEXTROSE 5% 100ML 100 ML IV SCH ×3 (05:37→21:59)
[2017-04-17] MEDS ORDERED: INSULIN ASPART 100 UNITS/ML 3 ML PEN SC SCH (06:30)
[2017-04-17] MEDS: BUDESONIDE 0.5 MG/2 ML VIAL (PULMICORT) INH SCH ×2 (07:08→18:57)
[2017-04-17] MEDS ORDERED: INSULIN DETEMIR FLEXPEN/FLEX TOUCH 100 UNITS/ML 3ML SC ONE (07:30)
[2017-04-17] MEDS ORDERED: PERFLUTREN LIPID MICROSPHERE (DEFINITY) IV ONE (07:58)
[2017-04-17] MEDS: TIOTROPIUM BROMIDE 5 PUFF/90 MCG INH INH SCH (08:45)
[2017-04-17] MEDS: FUROSEMIDE 40 MG TAB PO SCH (08:45)
[2017-04-17] MEDS: MAGNESIUM OXIDE 400 MG TAB PO SCH (08:45)
[2017-04-17] MEDS: FLUTICASONE PROPIONATE NA SPR 16 GM BTL NAE SCH (08:45)
[2017-04-17] MEDS: POTASSIUM CHLORIDE 10 MEQ TABCR PO SCH (08:46)
[2017-04-17] MEDS: DULOXETINE HCL 60 MG CAP PO SCH (08:46)
[2017-04-17] MEDS: ASPIRIN 81 MG ECTAB PO SCH (08:46)
[2017-04-17] MEDS: BENZONATATE 100MG CAP PO SCH ×3 (08:47→20:39)
[2017-04-17] MEDS ORDERED: DILTIAZEM HCL 180 MG CAPCR PO SCH (09:00)
[2017-04-17 09:07] LABS: HEMATOCRIT 29.9 % (37-47); MEAN CELL VOLUME 85.2 fL (80-100); MEAN CORPUSCULAR HEMOGLOBIN 26.8 pg (25-34); MEAN CORPUSCULAR HGB CONC 31.4 g/dl (32-36); MEAN PLATELET VOLUME 9.4 fL (7.4-10.4); PLATELET COUNT 298 K/uL (130-400); RED BLOOD COUNT 3.51 M/uL (4.2-5.4); WHITE BLOOD COUNT 21.83 K/uL (4.8-10.8)
--- NOTE | 2017-04-17 09:17 | Pharmacy Progress Note ---
Glycemic Control Progress Note Date of Service Apr 17, 2017. Scope Glycemic Pharmacist consulted for glycemic control to write orders per [facility] inpatient glycemic control protocol. Objective Accuchecks BSG (last 24hrs): Test 04/16/17 14:21 04/16/17 14:43 04/16/17 16:19 04/16/17 16:58 Random Glucose 428 mg/dl (70-99) Bedside Glucose 442 mg/dl (70-90) 363 mg/dl (70-90) 344 mg/dl (70-90) Test 04/16/17 18:23 04/16/17 19:15 04/16/17 20:12 04/16/17 21:03 Bedside Glucose 280 mg/dl (70-90) 281 mg/dl (70-90) 211 mg/dl (70-90) 263 mg/dl (70-90) Test 04/16/17 21:57 04/16/17 22:56 04/16/17 22:57 04/16/17 23:11 Bedside Glucose 275 mg/dl (70-90) 343 mg/dl (70-90) 250 mg/dl (70-90) Random Glucose 256 mg/dl (70-99) Test 04/17/17 00:36 04/17/17 01:47 04/17/17 02:44 04/17/17 03:55 Bedside Glucose 220 mg/dl (70-90) 211 mg/dl (70-90) 158 mg/dl (70-90) 137 mg/dl (70-90) Test 04/17/17 04:48 04/17/17 07:15 04/17/17 08:42 Bedside Glucose 150 mg/dl (70-90) 226 mg/dl (70-90) HbA1c: Test 04/17/17 08:42 Recent Pertinent Medications Outpatient Anti-diabetic Regimen: * Levemir 15 units qHS + metformin 1 gm PO BID Risk Factors for Insulin Resistance: * Steroids: Solu- Medrol 40 mg IV q 8 hours ---> currently on hold RECEIVED Solu -Medrol 125 mg IV x [address] [facility] and 40 mg here * Infection: COPD exacerbation (on vancomycin, cefepime, levaquin) and possible shingles (on acyclovir) * Diet: type 2 diet Outpatient Anti-Diabetic Meds see above Assessment & Plan ASSESSMENT: See progress note from 04/16/17 for more background info, in short: Pt receiving SQ basal bolus insulin regimen for hyperglycemia secondary to baseline DM (outpatient regimen on hold), stress (COPD exacerbation and possibly shingles), and steroids (Solu-Medrol 60 mg IV q8 hours currently on hold but received one dose) Patient is currently receiving an average of ? (received 10 units of Novolog + 15 of Levemir) units of insulin per day 15 units of basal insulin 10 units of prandial/correctional insulin BSGs ranging 150 - 428 mg/dl over the past 24hrs Changes needed to insulin regimen: AM Fasting BSG = 226 mg/dl. This is in slightly above goal range for patient based on inpatient targets and co-morbidities. The insulin infusion was discontinued this morning at 0400- there was no additional Lantus given. At that time, the insulin infusion was infusing at 5.3 units/hr. Using conservative estimate of 4 units/hour - the patient required around an 96 units for 24 hours....which can equate to around 38 of basal (40-60 split). Gave 35 units of basal this morning as the full 24 hour dose even though patient received 15 units last night. Unfortunately, patient's blood sugar increased to 342 mg/dL at lunch. Insulin infusion restarted as effects of steroids still lingering Post-prandial BSGs are not currently known. As insulin infusion restarted , fix carbohydrate ratio of 1 unit for every 6 grams of carbohydrates consumed. Total daily dose = ~80-90 units. Currently patient has insulin infusion Additional notes / comments: PLAN FOR INPATIENT GLYCEMIC CONTROL: STARTING insulin infusion secondary to hyperglycemia from steroids. STARTING Levemir 35 units SQ x 1 then Levemir 15 units SQ BID (weight-based stress of 2 dosing) STARTING carb ratio to 1 unit per 6 grams CHO consumed Continuing goal range of Low 100 mg/dL - High 150 mg/dL RECOMMENDATIONS FOR DISCHARGE: HbA1C pending * Please note that the plan above was derived based on current level of insulin resistance and hospital stress. These recommendations are appropriate for inpatient admission only. Plan of care upon discharge will need to be reassessed to avoid potential outpatient hypo/hyperglycemia. Thank you.
[2017-04-17 09:20] LABS: PROTHROMBIN TIME (PATIENT) 63.9 SECONDS (9.0-12.0)
[2017-04-17 09:37] LABS: BUN/CREATININE RATIO 27.1 (10-20); CALCIUM 8.8 mg/dl (8.5-10.1); CREATININE 0.77 mg/dl (0.60-1.20); MAGNESIUM 1.7 mg/dl (1.8-2.4); POTASSIUM 3.6 mmol/L (3.5-5.1)
[2017-04-17] MEDS: DILTIAZEM HCL (TIAzac) 180 MG CAPCR PO SCH (09:48)
[2017-04-17 09:54] LABS: ESTIMATED AVERAGE GLUCOSE 197 mg/dl; HA1C FLAG Normal (Normal)
[2017-04-17] MEDS: VANCOMYCIN INJ 1,250 MG in SODIUM CHLORIDE 0.9% 250ML 250 ML IV SCH (10:18)
[2017-04-17 10:32] LABS: INR 5.6 (0.9-1.1)
--- NOTE | 2017-04-17 12:37 | ECHOCARDIOGRAM REPORT ---
*NOTICE TO RECEIVING REPUBLICAN AGENCY This information is strictly Confidential and protected under [place] law. [place] law prohibits you from making any further disclosure of this information unless further disclosure is expressly permitted by the written consent of the person to whom it pertains or is authorized by law. A general authorization for the release of medical or other information is not sufficient for this purpose. Hospital accepts no responsibility if the information is made available to any other person, INCLUDING THE PATIENT. Interpretation Summary * Name: NELLI MOY Study Date: 04/17/2017 07:05 AM BP: 105/66 mmHg * Patient Location: [facility]\S\N287\S\2 HR: 85 * : 1940 (M/d/yyy) Gender: Female Height: 62 in * Age: 77 yrs Ethnicity: CA Weight: 185 lb * Ordering Physician: Irasema Ambrocio * Referring Physician: UNKNOWN * Performed By: Shila Cordova RDCS * * Reason For Study: PULMONARY HTN * BSA: 1.8 m2 * Normal left ventricular systolic function. * Moderate concentric left ventricular hypertrophy. * [id number] right ventricular systolic dysfunction. * Mild right ventricular dilatation. * Mild biatrial dilatation. * Moderate mitral regurgitation. * Mild tricuspid regurgitation. * Elevated estimated central venous pressure. * Severe pulmonary hypertension. * -- Conclusions -- * Aortic valve sclerosis mild, without significant aortic valvular stenosis. Procedure Details * A contrast injection of Definity was performed to improve assessment of LV function. * Contrast was injected into an intravenous site in the right arm. * One vial of Definity ultrasound contrast was diluted in normal saline to a total volume of 10 ml. A total of '2' ml of solution was administered during imaging. * Lot # [id number] of Definity utilized for procedure. * Expiration date MAY 06. * The attending nurse who injected the contrast agent was KEVIN CRYSTAL RN. Left Ventricle * The left ventricle is normal in size. * There is moderate concentric left ventricular hypertrophy. * Ejection Fraction = 65-70%. * Left ventricular systolic function is normal. * Flattened septum is consistent with RV pressure overload. Right Ventricle * The right ventricle is mildly dilated. * The right ventricular systolic function is mild to moderately reduced. * The right ventricular systolic function is reduced as assessed by tricuspid annular plane systolic excursion (TAPSE) (TAPSE <1.6 cm). Atria * The left atrium is mildly dilated. * The right atrium is mildly dilated. Mitral Valve * There is mild mitral annular calcification. * There is no mitral valve stenosis. * There is moderate mitral regurgitation. Tricuspid Valve * The tricuspid valve is normal. * There is no tricuspid stenosis. * There is mild tricuspid regurgitation. * Right ventricular systolic pressure is elevated at >60mmHg. Aortic Valve * The aortic valve is trileaflet. * The aortic valve opens well. * Aortic valve sclerosis mild, without significant aortic valvular stenosis. * No aortic regurgitation is present. Pulmonic Valve * The pulmonic valve is not well visualized. * The pulmonary valve is inadequately visualized, but the Doppler data is adequate for interpretation. * There is no pulmonic valvular stenosis. * There is no significant pulmonary regurgitation. Great Vessels * There is aortic root sclerosis/calcification. * The aortic root is normal size. Pericardium/Pleural * There is no pericardial effusion. Great Vessels * The inferior vena cava is moderately dilated. MMode 2D Measurements and Calculations IVSd 1.5 cm IVSs 1.6 cm LVIDd 4.3 cm LVIDs 2.7 cm LVPWd 1.6 cm LVPWs 1.8 cm IVS/LVPW 0.92 FS 36.7 % EDV(Teich) 83.1 ml ESV(Teich) 27.6 ml EF(Teich) 66.8 % EDV(cubed) 79.5 ml ESV(cubed) 20.2 ml EF(cubed) 74.7 % % IVS thick 8.5 % % LVPW thick 12.9 % LV mass(C)d 269.0 grams LV mass(C)dI 145.5 grams/m\S\2 LV mass(C)s 175.9 grams LV mass(C)sI 95.1 grams/m\S\2 SV(Teich) 55.5 ml SI(Teich) 30.0 ml/m\S\2 SV(cubed) 59.4 ml SI(cubed) 32.1 ml/m\S\2 Ao root diam 3.1 cm Ao root area 7.5 cm\S\2 LA dimension 4.1 cm LA/Ao 1.3 LVAd ap4 18.8 cm\S\2 LVLd ap4 6.9 cm EDV(MOD-sp4) 41.2 ml EDV(sp4-el) 43.4 ml LVAs ap4 9.8 cm\S\2 LVLs ap4 5.7 cm ESV(MOD-sp4) 13.5 ml ESV(sp4-el) 14.3 ml EF(MOD-sp4) 67.3 % EF(sp4-el) 67.0 % LVAd ap2 27.4 cm\S\2 LVLd ap2 7.0 cm EDV(MOD-sp2) 89.9 ml EDV(sp2-el) 91.0 ml LVAs ap2 14.8 cm\S\2 LVLs ap2 5.9 cm ESV(MOD-sp2) 31.9 ml ESV(sp2-el) 31.3 ml EF(MOD-sp2) 64.5 % EF(sp2-el) 65.6 % LVLd %diff 1.6 % EDV(MOD-bp) 60.8 ml LVLs %diff 3.6 % ESV(MOD-bp) 20.5 ml EF(MOD-bp) 66.3 % SV(MOD-sp4) 27.8 ml SI(MOD-sp4) 15.0 ml/m\S\2 SV(MOD-sp2) 58.0 ml SI(MOD-sp2) 31.3 ml/m\S\2 SV(MOD-bp) 40.3 ml SI(MOD-bp) 21.8 ml/m\S\2 SV(sp4-el) 29.1 ml SI(sp4-el) 15.7 ml/m\S\2 SV(sp2-el) 59.7 ml SI(sp2-el) 32.3 ml/m\S\2 Doppler Measurements and Calculations MV E max vicente 153.8 cm/sec MV dec time 0.20 sec Ao V2 max 121.0 cm/sec Ao max PG 5.9 mmHg Ao max PG (full) 2.7 mmHg LV V1 max PG 3.1 mmHg LV V1 max 88.5 cm/sec TR max vicente 347.8 cm/sec
[2017-04-17] MEDS ORDERED: PHYTONADIONE INJ 2.5 MG in SODIUM CHLORIDE 0.9% 50ML 50 ML IV ONE (12:45)
[2017-04-17] MEDS ORDERED: MAGNESIUM SULFATE 1GM / D5W 1 GM in PREMIXED IN D5W 100 ML IV ONE (12:45)
[2017-04-17] MEDS ORDERED: INSULIN HUMAN REGULAR IV BOLUS 2 UNIT in SYRINGE 0 ML IV SCH (12:45)
[2017-04-17] MEDS: INSULIN ASPART 100 UNITS/ML 3 ML PEN SC SCH ×4 (13:21→23:46)
[2017-04-17 14:30] LABS: HEMATOCRIT 29.3 % (37-47)
--- NOTE | 2017-04-17 15:19 | Pulmonology Progress Note ---
Pulmonary Progress Note Date of Service Apr 17, 2017. Attending Dr. Ambrocio Subjective Patient seen and examined. She states that she is feeling better. Mildly short of breath with exertion. Denies any chest pain. She is having some sputum production, but denies any further episodes of hemoptysis. Objective VS reviewed. Tm 36.5, BP 105/66-12/67, P 67-122, RR 18-26, SaO2 81-94% on 4L NC. Currently 2.8 L positive since admission. Gen:AAOx3, NAD, out of bed to chair. Talkative CVS: S1, S2, irregularly irregular Lungs: fine crackles bilaterally, diminished breath sounds at bases Abd: soft/NT/ND/BS+ Ext: trace edema bilateral LE, no cyanosis, clubbing of finger nails Labs reviewed ABG 04/16/2017--7.47/35/73/24/93.5% on 4L NC. WBC 15-->21, Hgb 10.6-->9.4 Glucose 342 Mg 1.7, BNP 1388 PT 63.9, INR 5.6 ESR 61, CRP 5.24 RF < 10, CCP IgG 0.50 JACKIE-pending ANCA-pending C3 and C4-pending Sputum 04/17/2017--gram stain and culture pending Imaging viewed and reviewed by me TTE 04/17/2017 * Reason For Study: PULMONARY HTN * BSA: 1.8 m2 * Normal left ventricular systolic function. * Moderate concentric left ventricular hypertrophy. * [id number] right ventricular systolic dysfunction. * Mild right ventricular dilatation. * Mild biatrial dilatation. * Moderate mitral regurgitation. * Mild tricuspid regurgitation. * Elevated estimated central venous pressure. * Severe pulmonary hypertension. Medications reviewed Assessment & Plan Acute on chronic hypoxemic respiratory failure Pulmonary fibrosis Diastolic CHF Pulmonary HTN Right pleural effusion Hemoptysis--resolved Supratherapeutic INR Uncontrolled diabetes Patient appears to be improving clinically. She continues to be at baseline home oxygen level. She does seem to have an element of diastolic dysfunction on underlying lung disease. BNP is not elevated for her age. TTE shows flattened septum consistent with RV pressure overload. Right ventricle is mildly dilated. RV systolic function is mild to moderately reduced, RV systolic function is reduced as assessed by tricuspid annular plane systolic excursion (TAPSE) ( TAPSE <1.6 cm). ESR, CRP elevated. CCP and RF negative Optimize patients cardiac function with rate control. Hemoptysis--appears to have resolved. Coumadin is on hold. INR is still elevated. Given IV vitamin K. In the interim continue with broad-spectrum antibiotics as she has had recent hospitalization. Leukocytosis is most likely due to recent steroid use an outpatient. Continue with diureses. This remains a challenge as she is requiring increased fluids for insulin I would also continue with taper steroids, bronchodilators. Optimize hyperglycemic regimen F/u sputum cultures to rule out infectious etiology. Contnue with Tessalon Perles to decrease cough. F/u JACKIE, ANCA, PERFORMANCE IMPROVEMENT SPECIALIST and complement. She should have a full PFT and sleep study done done at some point as an outpatient. Once more clinically stable she may be a candidate for possible transbronchial biopsy versus open lung biopsy for pulmonary fibrosis. Discussed with Dr. Garvin Will sign off case. Please contact me if you have any further questions or concerns. Data Medications: Current Inpatient Medications Medications (Trade) Dose Ordered Sig/Monique Route Start Time Stop Time Status Last Admin Dose Admin Acetaminophen (Tylenol Tab) 650 mg Q4H PRN PO 04/16/17 14:00 05/16/17 13:59 Al Hydrox/Mg Hydrox/Simethicone (Maalox Max Susp) 15 ml Q4H PRN PO 04/16/17 14:00 05/16/17 13:59 Magnesium Hydroxide (Milk Of Magnesia Susp) 30 ml Q12H PRN PO 04/16/17 14:00 05/16/17 13:59 Ondansetron HCl (Zofran Inj) 4 mg Q6H PRN IV 04/16/17 14:00 05/16/17 13:59 Polyethylene (Miralax Powder Packet) 17 gm DAILY PRN PO 04/16/17 14:00 05/16/17 13:59 Levofloxacin 750 mg/Prmx 150 ml @ 100 mls/hr Q24H IV 04/16/17 16:00 04/23/17 15:59 04/16/17 16:25 100 MLS/HR Ipratropium Peggs (Atrovent 0.02% 0.5MG/2.5ML Neb) 0.5 mg Q6R INH 04/16/17 15:00 05/16/17 14:59 04/17/17 14:15 0.5 MG Levalbuterol (Xopenex 1.25MG/ 0.5ML Neb) 1.25 mg Q6R INH 04/16/17 15:00 05/16/17 14:59 04/17/17 14:15 1.25 MG Levalbuterol (Xopenex 1.25MG/ 0.5ML Neb) 1.25 mg Q2H PRN INH 04/16/17 14:00 05/16/17 13:59 04/16/17 22:44 1.25 MG Acyclovir Sodium 500 mg/Dextrose 260 ml @ 265 mls/hr Q8H IV 04/16/17 20:00 04/26/17 19:59 04/17/17 12:45 265 MLS/HR Glucose (Glucose 40% Gel) 15-30 GRAMS 15 GRAMS... UD PRN PO 04/16/17 14:30 05/16/17 14:29 Glucose (Glucose Chew Tab) 4-8 Tablets 4 Tabl... UD PRN PO 04/16/17 14:30 05/16/17 14:29 Dextrose (Dextrose 50% 50ML Syringe) 25-50ML OF 50% DW IV FOR... UD PRN IV 04/16/17 14:30 05/16/17 14:29 Glucagon (Glucagon Inj) 1 mg UD PRN SQ 04/16/17 14:30 05/16/17 14:29 Alprazolam (Xanax Tab) 0.0625 mg TID PRN PO 04/16/17 15:00 05/16/17 14:59 Aspirin (Ecotrin Tab) 81 mg DAILY PO 04/17/17 09:00 05/17/17 08:59 04/17/17 08:46 81 MG Digoxin (Lanoxin Tab) 0.125 mg DAILY@1600 PO 04/17/17 16:00 05/17/17 15:59 Duloxetine HCl (Cymbalta Cap) 60 mg DAILY PO 04/17/17 09:00 05/17/17 08:59 04/17/17 08:46 60 MG Salmeterol Xinafoate/ Fluticasone (Advair Diskus 250/50 Inh) 1 puff BID INH 04/16/17 21:00 05/16/17 20:59 Future Hold Fluticasone Propionate (Flonase Nasal Dille) 2 sprays DAILY JAMIN 04/17/17 09:00 05/17/17 08:59 04/17/17 08:45 2 SPRAYS Furosemide (Lasix Tab) 20 mg DAILY PRN PO 04/16/17 15:00 05/16/17 14:59 Furosemide (Lasix Tab) 40 mg DAILY PO 04/17/17 09:00 05/17/17 08:59 04/17/17 08:45 40 MG Magnesium Oxide (Mag-Ox Tab) 400 mg DAILY PO 04/17/17 09:00 05/17/17 08:59 04/17/17 08:45 400 MG Potassium Chloride (Klor-Con M10) 10 meq DAILY PO 04/17/17 09:00 05/17/17 08:59 04/17/17 08:46 10 MEQ Pravastatin Sodium (Pravachol Tab) 80 mg PM PO 04/16/17 21:00 05/16/17 20:59 04/16/17 20:36 80 MG Enalapril Maleate (Vasotec Tab) 10 mg HS PO 04/16/17 21:00 05/16/17 20:59 04/16/17 20:36 10 MG Tiotropium Peggs (Spiriva Handihaler Inhaler) 1 puff QAM INH 04/17/17 09:00 05/17/17 08:59 04/17/17 08:45 1 PUFF Sodium Chloride 1,000 ml @ 75 mls/hr [id number] IV 04/16/17 15:00 04/17/17 17:39 04/16/17 23:50 75 MLS/HR Diltiazem HCl (TIAzac CAP) 180 mg QAM PO 04/17/17 09:00 05/17/17 08:59 04/17/17 09:48 180 MG Miscellaneous Information (Consult Glycemic Management Pharmacy) 1 ea UD PRN N/A 04/16/17 15:31 05/16/17 15:30 Cefepime HCl (Consult) 1 ea UD PRN N/A 04/16/17 16:00 05/16/17 15:59 Levofloxacin (Consult) 1 ea UD PRN N/A 04/16/17 16:00 05/16/17 15:59 Budesonide (Pulmicort Respules 0.5MG/ 2ML Neb Soln) 0.5 mg BIDR INH 04/16/17 20:00 05/16/17 19:59 04/17/17 07:08 0.5 MG Benzonatate (Tessalon Perles Cap) 100 mg TID PO 04/16/17 21:00 05/16/17 20:59 04/17/17 13:51 100 MG Cefepime HCl 2000 mg/Dextrose 112.5 ml @ 200 mls/hr Q8H IV 04/17/17 14:00 04/22/17 23:00 04/17/17 14:16 200 MLS/HR Pantoprazole Sodium (Protonix Tab) 40 mg BID PO 04/17/17 21:00 05/17/17 20:59 Insulin Human Regular 250 units/ Sodium Chloride 252.5 ml @ 0 mls/hr DAILY@1130 IV 04/17/17 12:45 05/17/17 12:44 04/17/17 14:34 2.5 MLS/HR Insulin Aspart (novoLOG ASPART) [facility] 04/17/17 13:00 05/17/17 12:59 04/17/17 13:21 5 UNITS Insulin Detemir (Levemir Flexpen/ FlexTouch) 15 units BID SC 04/17/17 21:00 05/17/17 20:59 I & O: 24-Hour Column 04/18/17 07:59 Intake Total 1477 ml Output Total 200 ml Balance 1277 ml Vital Signs: Date Time Temp Pulse Resp B/P (MAP) Pulse Ox O2 Delivery O2 Flow Rate FiO2 04/17/17 12:00 94 Nasal Cannula 4.0 04/17/17 11:16 36.5 93 20 106/62 (77) 94 4.0 04/17/17 08:00 94 Nasal Cannula 4.0 04/17/17 07:12 85 18 94 Nasal Cannula 4.0 04/17/17 07:05 36.5 122 20 105/66 (79) 81 04/17/17 04:00 Nasal Cannula 4.0 04/17/17 03:56 36.4 67 20 120/67 (84) 92 Nasal Cannula 4.0 04/17/17 01:51 105 26 94 Nasal Cannula 4.0 04/17/17 00:00 Nasal Cannula 4.0 04/16/17 23:39 36.5 100 20 120/78 (92) 92 Nasal Cannula 4.0 04/16/17 22:46 109 22 94 Nasal Cannula 4.0 04/16/17 20:09 99 22 94 Nasal Cannula 4.0 04/16/17 20:00 Nasal Cannula 4.0 04/16/17 19:29 36.5 92 24 105/65 (78) 94 Nasal Cannula 4.0 04/16/17 17:42 104 26 95 Nasal Cannula 4.0 04/16/17 16:00 95 Nasal Cannula 4.0 04/16/17 14:54 36.4 111 20 128/85 (99) 95 Room Air 5.0 Laboratory Results: Last 24 Hours Test 04/16/17 14:43 04/16/17 16:19 04/16/17 16:58 04/16/17 18:01 Bedside Glucose 442 mg/dl 363 mg/dl 344 mg/dl Erythrocyte Sedimentation Rate 61 mm/hr C-Reactive Protein 5.24 mg/dl Pro-B-Type Natriuretic Peptide 1388 pg/ml Rheumatoid Factor < 10.0 U/mL Cyclic Citrullinated Peptide IgG Ab 0.50 U/mL Test 04/16/17 18:17 04/16/17 18:23 04/16/17 19:15 04/16/17 20:12 Arterial Blood pH 7.47 Arterial Blood Partial Pressure CO2 34 mmHg Arterial Blood Partial Pressure O2 73 mm/Hg Arterial Blood HCO3 24 mmol/L Arterial Blood Oxygen Saturation 93.5 % Arterial Blood Base Excess 0.2 mEq/L Arterial Blood Gas Delivery 4L Issa Test POS Bedside Glucose 280 mg/dl 281 mg/dl 211 mg/dl Test 04/16/17 21:03 04/16/17 21:57 04/16/17 22:57 04/16/17 23:11 Bedside Glucose 263 mg/dl 275 mg/dl 250 mg/dl Random Glucose 256 mg/dl Test 04/17/17 00:36 04/17/17 01:47 04/17/17 02:44 04/17/17 03:55 Bedside Glucose 220 mg/dl 211 mg/dl 158 mg/dl 137 mg/dl Test 04/17/17 04:48 04/17/17 07:15 04/17/17 08:42 04/17/17 11:06 Bedside Glucose 150 mg/dl 226 mg/dl 342 mg/dl White Blood Count 21.83 K/uL Red Blood Count 3.51 M/uL Hemoglobin 9.4 g/dL Hematocrit 29.9 % Mean Corpuscular Volume 85.2 fL Mean Corpuscular Hemoglobin 26.8 pg Mean Corpuscular Hemoglobin Concent 31.4 g/dl RDW Standard Deviation 50.1 fL RDW Coefficient of Variation 16.3 % Platelet Count 298 K/uL Mean Platelet Volume 9.4 fL Prothrombin Time 63.9 SECONDS Prothromb Time International Ratio 5.6 Sodium Level 137 mmol/L Potassium Level 3.6 mmol/L Chloride Level 104 mmol/L Carbon Dioxide Level 23 mmol/L Anion Gap 10.0 mmol/L Blood Urea Nitrogen 21 mg/dl Creatinine 0.77 mg/dl Est Creatinine Clear Calc Drug Dose 60.0 ml/min Estimated GFR () 85.1 Estimated GFR (Non- 73.4 BUN/Creatinine Ratio 27.1 Random Glucose 257 mg/dl Estimated Average Glucose 197 mg/dl Hemoglobin A1c 8.5 % Calcium Level 8.8 mg/dl Magnesium Level 1.7 mg/dl Test 04/17/17 13:55 04/17/17 14:23 Hemoglobin 9.3 g/dL Hematocrit 29.3 % Bedside Glucose 290 mg/dl
[2017-04-17] MEDS: LEVOFLOXACIN / D5W 750 MG in PREMIXED IN D5W 150 ML IV SCH (15:54)
[2017-04-17] MEDS: DIGOXIN 0.125 MG TAB PO SCH (15:57)
--- NOTE | 2017-04-17 16:30 | Medical Student: [facility] ---
Med Student Progress Note Date of Service Apr 17, 2017. Subjective Pt evaluation today including: conversation w/ patient, physical exam, chart review, lab review, review of studies Pt is a 77 yo F with a PMH COPD, ILD, Pulmonary HTN, Diastolic CHF, Persistent A.fib and T2DM, who was transferred here from [facility] with concern for COPD exacerbation vs worsening pulmonary fibrosis. her symptoms include, severe dyspnea on exertion and a productive cough of yellow sputum. She is on 4 L NC. She continues to feel very short of breath. She notes that with transferring from bed to chair she becomes signficantly dyspnic. "I'm alright if I don't move." She thinks she has improved somewhat. She received 2 125 mg doses of Steroids at [facility] and now her blood glucose levels have been very high. Her INR was also >5 today. Review of Systems Constitutional: No fever, No chills, No sweats, No weakness Respiratory: + cough, + sputum (yellow), + shortness of breath, + dyspnea on exertion (significant), No wheezing Cardiac: No chest pain, No palpitations Abdomen: No pain, No nausea, No vomiting, No diarrhea, No constipation Musculoskeletal: No joint pain, No muscle pain Female : No dysuria, No urinary frequency Objective Vital Signs Date Time Temp Pulse Resp B/P (MAP) Pulse Ox O2 Delivery O2 Flow Rate FiO2 04/17/17 15:57 68 04/17/17 14:57 36.4 73 20 91/53 (66) 96 04/17/17 14:49 85 18 94 Nasal Cannula 4.0 04/17/17 12:00 94 Nasal Cannula 4.0 04/17/17 11:16 36.5 93 20 106/62 (77) 94 4.0 04/17/17 08:00 94 Nasal Cannula 4.0 04/17/17 07:12 85 18 94 Nasal Cannula 4.0 04/17/17 07:05 36.5 122 20 105/66 (79) 81 04/17/17 04:00 Nasal Cannula 4.0 04/17/17 03:56 36.4 67 20 120/67 (84) 92 Nasal Cannula 4.0 04/17/17 01:51 105 26 94 Nasal Cannula 4.0 04/17/17 00:00 Nasal Cannula 4.0 04/16/17 23:39 36.5 100 20 120/78 (92) 92 Nasal Cannula 4.0 04/16/17 22:46 109 22 94 Nasal Cannula 4.0 04/16/17 20:09 99 22 94 Nasal Cannula 4.0 04/16/17 20:00 Nasal Cannula 4.0 04/16/17 19:29 36.5 92 24 105/65 (78) 94 Nasal Cannula 4.0 04/16/17 17:42 104 26 95 Nasal Cannula 4.0 Physical Exam General Appearance: WD/WN, no apparent distress (resting comfortably. Becomes dyspnic while talking. ) ENT: hearing grossly normal, pharynx normal Neck: supple, no adenopathy, thyroid normal Respiratory/Chest: + accessory muscle use, + crackles (fine. diffuse bilaterally) Cardiovascular: no murmur, + irregularly irregular Abdomen: normal bowel sounds, non tender, soft, no organomegaly Extremities: normal inspection, no pedal edema Neurologic/Psychiatric: alert, normal mood/affect, oriented x 3 Skin: normal color, warm/dry, no rash Laboratory Results Last 24 Hours Test 04/16/17 16:19 04/16/17 16:58 04/16/17 18:01 04/16/17 18:17 Bedside Glucose 363 mg/dl 344 mg/dl Erythrocyte Sedimentation Rate 61 mm/hr C-Reactive Protein 5.24 mg/dl Pro-B-Type Natriuretic Peptide 1388 pg/ml Rheumatoid Factor < 10.0 U/mL Cyclic Citrullinated Peptide IgG Ab 0.50 U/mL Arterial Blood pH 7.47 Arterial Blood Partial Pressure CO2 34 mmHg Arterial Blood Partial Pressure O2 73 mm/Hg Arterial Blood HCO3 24 mmol/L Arterial Blood Oxygen Saturation 93.5 % Arterial Blood Base Excess 0.2 mEq/L Arterial Blood Gas Delivery 4L Issa Test POS Test 04/16/17 18:23 04/16/17 19:15 04/16/17 20:12 04/16/17 21:03 Bedside Glucose 280 mg/dl 281 mg/dl 211 mg/dl 263 mg/dl Test 04/16/17 21:57 04/16/17 22:57 04/16/17 23:11 04/17/17 00:36 Bedside Glucose 275 mg/dl 250 mg/dl 220 mg/dl Random Glucose 256 mg/dl Test 04/17/17 01:47 04/17/17 02:44 04/17/17 03:55 04/17/17 04:48 Bedside Glucose 211 mg/dl 158 mg/dl 137 mg/dl 150 mg/dl Test 04/17/17 07:15 04/17/17 08:42 04/17/17 11:06 04/17/17 13:55 Bedside Glucose 226 mg/dl 342 mg/dl White Blood Count 21.83 K/uL Red Blood Count 3.51 M/uL Hemoglobin 9.4 g/dL 9.3 g/dL Hematocrit 29.9 % 29.3 % Mean Corpuscular Volume 85.2 fL Mean Corpuscular Hemoglobin 26.8 pg Mean Corpuscular Hemoglobin Concent 31.4 g/dl RDW Standard Deviation 50.1 fL RDW Coefficient of Variation 16.3 % Platelet Count 298 K/uL Mean Platelet Volume 9.4 fL Prothrombin Time 63.9 SECONDS Prothromb Time International Ratio 5.6 Sodium Level 137 mmol/L Potassium Level 3.6 mmol/L Chloride Level 104 mmol/L Carbon Dioxide Level 23 mmol/L Anion Gap 10.0 mmol/L Blood Urea Nitrogen 21 mg/dl Creatinine 0.77 mg/dl Est Creatinine Clear Calc Drug Dose 60.0 ml/min Estimated GFR () 85.1 Estimated GFR (Non- 73.4 BUN/Creatinine Ratio 27.1 Random Glucose 257 mg/dl Estimated Average Glucose 197 mg/dl Hemoglobin A1c 8.5 % Calcium Level 8.8 mg/dl Magnesium Level 1.7 mg/dl Test 04/17/17 14:23 04/17/17 15:41 Bedside Glucose 290 mg/dl 240 mg/dl Assessment and Plan Assessment and Plan: COPD exacerbation vs HCAP vs worsened ILD -CXR - shows ground glass opacities which could indicate progression of pulmonary fibrosis -Cefepime 2g IV BID +Lefaquin 750mg IV + Vancomycin 1250 mg q 18hrs +Aculcovir 500 IV q 8 hrs to cover for possible HCAP. -Atrovent, Flonase and Spiriva Supratherapeutic INR -IV Vitamin K given -INR checks q 12 hours -hold coumadin T2DM -uncontrolled sugars while inpt following steroid doses at [facility] -IV insulin drip in place. Hourly sugars trending down. -Diabetes diet -Metformin held inpt -Lantus, Novolog SSI Persistent A.fib -rate controlled -Dilt 180 mg daily -Digoxin 0.125 mg daily -hold Coumadin as supratherapeutic INR -Aspirin 81 mg Pulmonary HTN -obtain echo to evaluate pressures Diastolic CHF -PO fluid restriction Lasix 40 mg BID HTN -enalapril Depression/Anxiety -Duloxetine 60 mg daily Hyperlipidemia -Pravastatin 80 mg daily GI PPX Protonix 40 mg DVT PPX none, as supratherapeutic INR Full Resusictaton Dispo: Tele. Continued [facility] stay due to: multiple IV medications needed Discharge planning: uncertain
--- NOTE | 2017-04-17 17:39 | Progress Note ---
Subjective Date of Service: Apr 17, 2017. Subjective pt is short of breath at baseline, now worse, typically wears home oxygen Review of Systems Constitutional: No fever, No chills Respiratory: + cough, + shortness of breath, + dyspnea on exertion, No sputum Cardiac: + edema (trace), No chest pain Abdomen: No pain, No nausea, No vomiting Objective Vital Signs Date Time Temp Pulse Resp B/P (MAP) Pulse Ox O2 Delivery O2 Flow Rate FiO2 04/17/17 16:00 94 Nasal Cannula 4.0 04/17/17 15:57 68 04/17/17 14:57 36.4 73 20 91/53 (66) 96 04/17/17 14:49 85 18 94 Nasal Cannula 4.0 04/17/17 12:00 94 Nasal Cannula 4.0 04/17/17 11:16 36.5 93 20 106/62 (77) 94 4.0 04/17/17 08:00 94 Nasal Cannula 4.0 04/17/17 07:12 85 18 94 Nasal Cannula 4.0 04/17/17 07:05 36.5 122 20 105/66 (79) 81 04/17/17 04:00 Nasal Cannula 4.0 04/17/17 03:56 36.4 67 20 120/67 (84) 92 Nasal Cannula 4.0 04/17/17 01:51 105 26 94 Nasal Cannula 4.0 04/17/17 00:00 Nasal Cannula 4.0 04/16/17 23:39 36.5 100 20 120/78 (92) 92 Nasal Cannula 4.0 04/16/17 22:46 109 22 94 Nasal Cannula 4.0 04/16/17 20:09 99 22 94 Nasal Cannula 4.0 04/16/17 20:00 Nasal Cannula 4.0 04/16/17 19:29 36.5 92 24 105/65 (78) 94 Nasal Cannula 4.0 04/16/17 17:42 104 26 95 Nasal Cannula 4.0 Physical Exam General Appearance: WD/WN, + moderate distress Neck: supple, no JVD Respiratory/Chest: chest non-tender, + decreased breath sounds, + accessory muscle use, + rales Cardiovascular: regular rate, rhythm, no murmur Abdomen: normal bowel sounds, non tender, soft Extremities: no calf tenderness, + pedal edema, + swelling Neurologic/Psychiatric: alert, oriented x 3 Laboratory Results Last 24 Hours Test 04/16/17 18:01 04/16/17 18:17 04/16/17 18:23 04/16/17 19:15 Erythrocyte Sedimentation Rate 61 mm/hr C-Reactive Protein 5.24 mg/dl Pro-B-Type Natriuretic Peptide 1388 pg/ml Rheumatoid Factor < 10.0 U/mL Cyclic Citrullinated Peptide IgG Ab 0.50 U/mL Arterial Blood pH 7.47 Arterial Blood Partial Pressure CO2 34 mmHg Arterial Blood Partial Pressure O2 73 mm/Hg Arterial Blood HCO3 24 mmol/L Arterial Blood Oxygen Saturation 93.5 % Arterial Blood Base Excess 0.2 mEq/L Arterial Blood Gas Delivery 4L Issa Test POS Bedside Glucose 280 mg/dl 281 mg/dl Test 04/16/17 20:12 04/16/17 21:03 04/16/17 21:57 04/16/17 22:57 Bedside Glucose 211 mg/dl 263 mg/dl 275 mg/dl 250 mg/dl Test 04/16/17 23:11 04/17/17 00:36 04/17/17 01:47 04/17/17 02:44 Random Glucose 256 mg/dl Bedside Glucose 220 mg/dl 211 mg/dl 158 mg/dl Test 04/17/17 03:55 04/17/17 04:48 04/17/17 07:15 04/17/17 08:42 Bedside Glucose 137 mg/dl 150 mg/dl 226 mg/dl White Blood Count 21.83 K/uL Red Blood Count 3.51 M/uL Hemoglobin 9.4 g/dL Hematocrit 29.9 % Mean Corpuscular Volume 85.2 fL Mean Corpuscular Hemoglobin 26.8 pg Mean Corpuscular Hemoglobin Concent 31.4 g/dl RDW Standard Deviation 50.1 fL RDW Coefficient of Variation 16.3 % Platelet Count 298 K/uL Mean Platelet Volume 9.4 fL Prothrombin Time 63.9 SECONDS Prothromb Time International Ratio 5.6 Sodium Level 137 mmol/L Potassium Level 3.6 mmol/L Chloride Level 104 mmol/L Carbon Dioxide Level 23 mmol/L Anion Gap 10.0 mmol/L Blood Urea Nitrogen 21 mg/dl Creatinine 0.77 mg/dl Est Creatinine Clear Calc Drug Dose 60.0 ml/min Estimated GFR () 85.1 Estimated GFR (Non- 73.4 BUN/Creatinine Ratio 27.1 Random Glucose 257 mg/dl Estimated Average Glucose 197 mg/dl Hemoglobin A1c 8.5 % Calcium Level 8.8 mg/dl Magnesium Level 1.7 mg/dl Test 04/17/17 11:06 04/17/17 13:55 04/17/17 14:23 04/17/17 15:41 Bedside Glucose 342 mg/dl 290 mg/dl 240 mg/dl Hemoglobin 9.3 g/dL Hematocrit 29.3 % Test 04/17/17 16:27 Bedside Glucose 192 mg/dl Assessment and Plan 77 y/o female with acute on chronic hypoxic respiratory failure and lung infiltrates seen on CXR, not clear if infectious or progressive fibrotic changes , not helped with antibiotics and steroids PMHx of COPD, Interstitial Lung Disease, Pulmonary HTN, Diastolic CHF, Persistent Atrial Fibrillation, and T2DM who presents as a direct admission from [facility] for COPD exacerbation and possible pneumonia. possibility of gram negative pneumonia Cefepime 2 g IV BID, Levaquin 750 mg IV daily, and stop Vancomycin as negative mrsa swap, added acyclovir as had family exposure to shingles cute on chronic hypoxic respiratory failure, seen by pulmonary who do not recommend steroids, continue - Xopenex/Atrovent - Spiriva 1 puf daily Pulmonary HTN/Interstitial Lung Disease:, will have TTE to comment on pulmonary pressures and right heart function - On chronic 4 L Atrial Fibrillation with RVR: improved will continue- Digoxin 0.125 mg daily, Diltiazem XL 180 mg daily, Supratherapeutic INR:given vitamin k 2.5 mg on 04/17- Hold Coumadin and trend INR T2DM: UNCONTROLLED, insulin gtt, glycemic assistance HTN:- Enalapril 10 mg daily Chronic Diastolic CHF:home dose lasix of 40 mg daily and 20 mg PRN for weight gain unless needing more hydration DVT Prophylaxis: SCDs/Supratherapeutic INR Continued [facility] stay due to: multiple IV medications needed Discharge planning: uncertain
[2017-04-17] MEDS: PANTOprazole SOD 40 MG TAB PO SCH (20:40)
[2017-04-17] MEDS: PRAVASTATIN SOD 40 MG TAB PO SCH (20:40)
[2017-04-17] MEDS: ENALAPRIL MALEATE 10 MG TAB PO SCH (20:42)
[2017-04-17] MEDS: INSULIN DETEMIR FLEXPEN/FLEX TOUCH 100 UNITS/ML 3ML SC SCH (20:44)
[2017-04-17] MEDS ORDERED: INSULIN DETEMIR FLEXPEN/FLEX TOUCH 100 UNITS/ML 3ML SC SCH (21:00)
[2017-04-17] MEDS: ACETAMINOPHEN 325 MG TAB PO PRN (22:03)
[2017-04-18] VITALS (9 sets, daily range): BP systolic 106–140; BP diastolic 64–91; PULSE 78–109; TEMP 36.4–36.6; O2SAT 90–94
[2017-04-18] MEDS: IPRATROPIUM BROMIDE NEB SOLN 0.02% 2.5 ML VIAL INH SCH ×4 (01:28→19:27)
[2017-04-18] MEDS: LEVALBUTEROL 1.25MG/0.5ML NEB INH SCH ×4 (01:28→19:27)
[2017-04-18] MEDS ORDERED: INSULIN ASPART 100 UNITS/ML 3 ML PEN SC SCH (02:00)
[2017-04-18] MEDS: INSULIN ASPART 100 UNITS/ML 3 ML PEN SC SCH ×5 (04:00→21:48)
[2017-04-18] MEDS: ACYCLOVIR SOD IV SCH ×2 (04:11→12:02)
[2017-04-18] MEDS: DEXTROSE 5% IV SCH ×2 (04:11→12:02)
[2017-04-18] MEDS: CEFEPIME IV 2,000 MG in DEXTROSE 5% 100ML 100 ML IV SCH ×3 (05:39→21:43)
[2017-04-18] MEDS: ACETAMINOPHEN 325 MG TAB PO PRN ×2 (06:33→16:07)
[2017-04-18] MEDS: BUDESONIDE 0.5 MG/2 ML VIAL (PULMICORT) INH SCH ×2 (07:17→19:27)
[2017-04-18 07:19] LABS: HEMATOCRIT 29.8 % (37-47); MEAN CELL VOLUME 84.7 fL (80-100); MEAN CORPUSCULAR HEMOGLOBIN 26.7 pg (25-34); MEAN CORPUSCULAR HGB CONC 31.5 g/dl (32-36); MEAN PLATELET VOLUME 9.1 fL (7.4-10.4); PLATELET COUNT 299 K/uL (130-400); RED BLOOD COUNT 3.52 M/uL (4.2-5.4); WHITE BLOOD COUNT 23.64 K/uL (4.8-10.8)
[2017-04-18 07:26] LABS: INR 1.8 (0.9-1.1); PROTHROMBIN TIME (PATIENT) 19.7 SECONDS (9.0-12.0)
[2017-04-18 07:48] LABS: BUN/CREATININE RATIO 27.6 (10-20); CALCIUM 8.6 mg/dl (8.5-10.1); CREATININE 0.71 mg/dl (0.60-1.20); MAGNESIUM 1.9 mg/dl (1.8-2.4); POTASSIUM 3.6 mmol/L (3.5-5.1)
[2017-04-18] MEDS: FLUTICASONE PROPIONATE NA SPR 16 GM BTL NAE SCH (08:04)
[2017-04-18] MEDS: TIOTROPIUM BROMIDE 5 PUFF/90 MCG INH INH SCH (08:05)
[2017-04-18] MEDS: PANTOprazole SOD 40 MG TAB PO SCH ×2 (08:06→21:50)
[2017-04-18] MEDS: DILTIAZEM HCL (TIAzac) 180 MG CAPCR PO SCH (08:06)
[2017-04-18] MEDS: MAGNESIUM OXIDE 400 MG TAB PO SCH (08:07)
[2017-04-18] MEDS: ASPIRIN 81 MG ECTAB PO SCH (08:07)
[2017-04-18] MEDS: BENZONATATE 100MG CAP PO SCH ×3 (08:07→21:50)
[2017-04-18] MEDS: DULOXETINE HCL 60 MG CAP PO SCH (08:07)
[2017-04-18] MEDS: POTASSIUM CHLORIDE 10 MEQ TABCR PO SCH (08:07)
[2017-04-18] MEDS: FUROSEMIDE 40 MG TAB PO SCH (08:08)
[2017-04-18] MEDS: INSULIN DETEMIR FLEXPEN/FLEX TOUCH 100 UNITS/ML 3ML SC SCH ×2 (08:14→21:49)
--- NOTE | 2017-04-18 09:28 | Pharmacy Progress Note ---
Glycemic Control Progress Note Date of Service Apr 18, 2017. Scope Glycemic Pharmacist consulted for glycemic control to write orders per [facility] inpatient glycemic control protocol. Objective Accuchecks BSG (last 24hrs): Test 04/17/17 11:06 04/17/17 14:23 04/17/17 15:41 04/17/17 16:27 Bedside Glucose 342 mg/dl (70-90) 290 mg/dl (70-90) 240 mg/dl (70-90) 192 mg/dl (70-90) Test 04/17/17 17:40 04/17/17 18:31 04/17/17 20:28 04/17/17 22:05 Bedside Glucose 184 mg/dl (70-90) 165 mg/dl (70-90) 104 mg/dl (70-90) 174 mg/dl (70-90) Test 04/17/17 22:58 04/17/17 23:41 04/18/17 04:12 04/18/17 07:08 Bedside Glucose 172 mg/dl (70-90) 141 mg/dl (70-90) 86 mg/dl (70-90) Random Glucose 154 mg/dl (70-99) Test 04/18/17 07:10 Bedside Glucose 160 mg/dl (70-90) HbA1c: Test 04/17/17 08:42 Hemoglobin A1c 8.5 % (4.5-5.6) H Recent Pertinent Medications The patient is currently receiving: * Basal insulin: Levemir 15 units every 12 hours * Correctional Insulin: Novolog Correction per scale ACHS Goal Range: Low 110 mg/dL - High 140 mg/dL Correction Factor: 20 mg/dL/unit * Prandial insulin: Per carb ratio of 1 unit per 6 grams CHO consumed Outpatient Anti-Diabetic Meds Levemir 15 units Q HS Metformin 1gm PO BID Assessment & Plan ASSESSMENT: 04/18/17 * Patient presented on 04/16 with severe hyperglycemia. IV insulin drip was initiated and subsequently discontinued the AM on 04/17, however BSGs quickly rebounded back into the 300's - likely due to insufficient basal insulin at the time the drip was discontinued. Insulin drip was again started and subsequently discontinued last evening. * This AM fasting BSG 86-154 with 50 units of basal insulin on board. The patient is currently ordered 2x her home dose of Levemir, which would be equivalent to a moderate-severe stress dose based upon weight. Of note, she had required a fair amount of IV insulin (~3-5units/hr) despite receiving Levemir SQ. Will continue the same for now as the fasting BSG at acceptable level this AM, but would have a low threshold for increasing the basal dose. * The current Novolog CF and CR are reasonable starting points PLAN FOR INPATIENT GLYCEMIC CONTROL: * Continuing Levemir 15 units SQ BID for now * Continuing correction factor of 20 mg/dl/unit * Continuing carb ratio of 1 unit per 6 grams CHO consumed * Continuing goal range of Low 110 mg/dL - High 140 mg/dL * Please note that the plan above was derived based on current level of insulin resistance and hospital stress. These recommendations are appropriate for inpatient admission only. Plan of care upon discharge will need to be reassessed to avoid potential outpatient hypo/hyperglycemia. Thank you.
[2017-04-18] MEDS ORDERED: POTASSIUM CHLORIDE 20 MEQ TABCR PO ONE (15:00)
[2017-04-18] MEDS ORDERED: FUROSEMIDE INJ 20 MG in SYRINGE 0 ML IV ONE (15:00)
[2017-04-18] MEDS: LEVOFLOXACIN / D5W 750 MG in PREMIXED IN D5W 150 ML IV SCH (16:07)
[2017-04-18] MEDS: DIGOXIN 0.125 MG TAB PO SCH (16:08)
[2017-04-18] MEDS ORDERED: VANCOMYCIN TROUGH SCH (19:30)
[2017-04-18] MEDS ORDERED: ACYCLOVIR SOD INJ 500 MG in DEXTROSE 5% 100ML 100 ML IV SCH (20:00)
--- NOTE | 2017-04-18 21:02 | Progress Note ---
Subjective Date of Service: Apr 18, 2017. Subjective Pt evaluation today including: conversation w/ patient, physical exam, chart review, lab review, review of studies (cxr), review of inpatient medication list Pain: none PO Intake: "too good!" Voiding: no voiding problems patient with ongoing small amounts of hemoptysis, about a teaspoon, about 1-2x' s each day still with LAND tele with a. fib, rates decently controlled but feels BETTER than at admission baseline, dry weight is about 180 pounds Review of Systems Constitutional: No fever Cardiac: No chest pain Abdomen: No pain Objective Vital Signs Date Time Temp Pulse Resp B/P (MAP) Pulse Ox O2 Delivery O2 Flow Rate FiO2 04/18/17 16:08 97 04/18/17 16:01 36.6 95 22 124/75 (91) 93 Nasal Cannula 4.0 04/18/17 16:00 Nasal Cannula 4.0 04/18/17 14:20 78 20 93 Nasal Cannula 4.0 04/18/17 12:00 Nasal Cannula 4.0 04/18/17 08:00 Nasal Cannula 4.0 04/18/17 07:18 84 22 92 Nasal Cannula 4.0 04/18/17 04:11 Nasal Cannula 4.0 04/18/17 03:18 36.6 100 20 139/81 (100) 94 4.0 04/18/17 01:29 88 18 91 Nasal Cannula 4.0 04/18/17 00:00 Nasal Cannula 4.0 04/17/17 23:49 36.3 101 20 106/73 (84) 93 4.0 04/17/17 20:18 36.6 117 22 107/65 (79) 96 Nasal Cannula 04/17/17 20:00 94 Nasal Cannula 4.0 04/17/17 18:58 94 18 91 Nasal Cannula 4.0 Physical Exam General Appearance: no apparent distress ENT: pharynx normal Neck: + JVD Respiratory/Chest: no respiratory distress, no accessory muscle use, + rales ( bases) Cardiovascular: no gallop, + irregularly irregular Abdomen: normal bowel sounds, non tender, soft, no organomegaly Extremities: + pedal edema Neurologic/Psychiatric: alert, oriented x 3 Laboratory Results Last 24 Hours Test 04/17/17 18:31 04/17/17 20:28 04/17/17 22:05 04/17/17 22:58 Bedside Glucose 165 mg/dl 104 mg/dl 174 mg/dl 172 mg/dl Test 04/17/17 23:41 04/18/17 04:12 04/18/17 07:08 04/18/17 07:10 Bedside Glucose 141 mg/dl 86 mg/dl 160 mg/dl White Blood Count 23.64 K/uL Red Blood Count 3.52 M/uL Hemoglobin 9.4 g/dL Hematocrit 29.8 % Mean Corpuscular Volume 84.7 fL Mean Corpuscular Hemoglobin 26.7 pg Mean Corpuscular Hemoglobin Concent 31.5 g/dl RDW Standard Deviation 50.0 fL RDW Coefficient of Variation 16.5 % Platelet Count 299 K/uL Mean Platelet Volume 9.1 fL Prothrombin Time 19.7 SECONDS Prothromb Time International Ratio 1.8 Sodium Level 140 mmol/L Potassium Level 3.6 mmol/L Chloride Level 106 mmol/L Carbon Dioxide Level 24 mmol/L Anion Gap 10.0 mmol/L Blood Urea Nitrogen 20 mg/dl Creatinine 0.71 mg/dl Est Creatinine Clear Calc Drug Dose 66.0 ml/min Estimated GFR () 93.9 Estimated GFR (Non- 81.0 BUN/Creatinine Ratio 27.6 Random Glucose 154 mg/dl Calcium Level 8.6 mg/dl Magnesium Level 1.9 mg/dl Test 04/18/17 11:11 04/18/17 16:28 Bedside Glucose 124 mg/dl 171 mg/dl Assessment and Plan 77yo female with: 1. acute/chronic hypoxic respiratory failure - acute component probably multifactorial including acute/chronic CHF, PF exacerbation, etc. 2. acute/chronic diastolic CHF in setting of chronic cor pulmonale/right-sided CHF - still with evidence of volume overload and weight above baseline. Received lasix 40mg po this am; give additional 20mg of IV this afternoon Re-eval in am 3. a. fib - rates acceptable. Check dig level am. 4. supratherapeutic INR in setting of hemoptysis - continue to hold the coumadin. Defer to pulmonary if bronchoscopy, etc is needed. 5. pulmonary HTN - severe. 6. T2DM - control acceptable. Pharmacy managing. 7. pulmonary fibrosis with exacerbation - on abx, nebs, inhalers. Appreciate pulmonary consultation . 8. PT, OT evals 9. leukocytosis - due to recent steroids? infectious process? other? follow Continued [facility] stay due to: multiple IV medications needed Discharge planning: uncertain
[2017-04-18] MEDS: PRAVASTATIN SOD 40 MG TAB PO SCH (21:50)
[2017-04-18] MEDS: ENALAPRIL MALEATE 10 MG TAB PO SCH (21:51)
[2017-04-19] VITALS (12 sets, daily range): BP systolic 110–136; BP diastolic 61–82; PULSE 82–131; TEMP 36.4–36.7; O2SAT 90–96
[2017-04-19] MEDS: IPRATROPIUM BROMIDE NEB SOLN 0.02% 2.5 ML VIAL INH SCH ×4 (02:00→19:21)
[2017-04-19] MEDS: LEVALBUTEROL 1.25MG/0.5ML NEB INH SCH ×4 (02:00→19:22)
[2017-04-19] MEDS: ACYCLOVIR SOD IV SCH ×2 (04:00→11:58)
[2017-04-19] MEDS: DEXTROSE 5% IV SCH ×2 (04:00→11:58)
[2017-04-19] MEDS: ACETAMINOPHEN 325 MG TAB PO PRN ×3 (04:03→22:40)
[2017-04-19 05:47] LABS: HEMATOCRIT 30.5 % (37-47); MEAN CELL VOLUME 85.2 fL (80-100); MEAN CORPUSCULAR HEMOGLOBIN 26.3 pg (25-34); MEAN CORPUSCULAR HGB CONC 30.8 g/dl (32-36); MEAN PLATELET VOLUME 9.1 fL (7.4-10.4); PLATELET COUNT 308 K/uL (130-400); RED BLOOD COUNT 3.58 M/uL (4.2-5.4); WHITE BLOOD COUNT 19.36 K/uL (4.8-10.8)
[2017-04-19] MEDS: CEFEPIME IV 2,000 MG in DEXTROSE 5% 100ML 100 ML IV SCH ×3 (05:52→20:50)
[2017-04-19 05:56] LABS: INR 1.7 (0.9-1.1); PROTHROMBIN TIME (PATIENT) 18.7 SECONDS (9.0-12.0)
[2017-04-19] MEDS ORDERED: FUROSEMIDE INJ 20 MG in SYRINGE 0 ML IV ONE ×2 (06:00→07:30)
--- NOTE | 2017-04-19 06:03 | DIAGNOSTIC IMAGING REPORT ---
CHEST ONE VIEW PORTABLE HISTORY: 77 years-old Female worsening shortness of breath acute shortness of breath. COPD exacerbation with hypoxia. COMPARISON: 04/16/2017 TECHNIQUE: Portable upright AP view of the chest FINDINGS: Cardiac silhouette is again moderately enlarged. Pulmonary vascular congestion is noted. There is atherosclerosis of the aorta. No pneumothorax. There is mild blunting of the bilateral costophrenic angles. Progressively worsened mixed interstitial and alveolar opacities are present within the lungs bilaterally, greatest in a perihilar and bibasilar predominant distribution. Degenerative changes are seen within the spine and shoulders. IMPRESSION: 1. Cardiomegaly with progressively worsened mixed interstitial and alveolar opacities bilaterally suggesting multifocal pneumonia and/or pulmonary edema. 2. Mild blunting of the costophrenic angles suggests trace pleural effusions. The above report was generated using voice recognition software. It may contain grammatical, syntax or spelling errors. Electronically signed by: Timoteo Nunes M.D. 04/19/2017 6:02 AM Dictated Date/Time: 04/19/2017 5:59 AM
[2017-04-19 06:10] LABS: BUN/CREATININE RATIO 25.1 (10-20); CREATININE 0.64 mg/dl (0.60-1.20); MAGNESIUM 1.5 mg/dl (1.8-2.4); POTASSIUM 3.7 mmol/L (3.5-5.1)
[2017-04-19] MEDS: BUDESONIDE 0.5 MG/2 ML VIAL (PULMICORT) INH SCH ×2 (07:25→19:21)
[2017-04-19] MEDS: MAGNESIUM SULFATE 1GM / D5W 1 GM in PREMIXED IN D5W 100 ML IV SCH ×2 (07:52→09:22)
[2017-04-19] MEDS: ASPIRIN 81 MG ECTAB PO SCH (07:56)
[2017-04-19] MEDS: PANTOprazole SOD 40 MG TAB PO SCH ×2 (07:56→19:45)
[2017-04-19] MEDS: MAGNESIUM OXIDE 400 MG TAB PO SCH ×2 (07:56→19:43)
[2017-04-19] MEDS: DULOXETINE HCL 60 MG CAP PO SCH (07:56)
[2017-04-19] MEDS: BENZONATATE 100MG CAP PO SCH ×3 (07:56→19:44)
[2017-04-19] MEDS: POTASSIUM CHLORIDE 10 MEQ TABCR PO SCH (07:57)
[2017-04-19] MEDS: DILTIAZEM HCL (TIAzac) 180 MG CAPCR PO SCH (07:57)
[2017-04-19] MEDS: TIOTROPIUM BROMIDE 5 PUFF/90 MCG INH INH SCH (07:57)
[2017-04-19] MEDS: FLUTICASONE PROPIONATE NA SPR 16 GM BTL NAE SCH (07:57)
[2017-04-19] MEDS: INSULIN ASPART 100 UNITS/ML 3 ML PEN SC SCH ×4 (08:05→20:49)
[2017-04-19] MEDS: INSULIN DETEMIR FLEXPEN/FLEX TOUCH 100 UNITS/ML 3ML SC SCH ×2 (08:05→20:50)
[2017-04-19] MEDS: DILTIAZEM HCL 30 MG TAB PO SCH ×4 (09:22→23:45)
[2017-04-19] MEDS ORDERED: POTASSIUM CHLORIDE 10 MEQ TABCR PO STA (09:44)
[2017-04-19] MEDS ORDERED: ACYCLOVIR SOD INJ 500 MG in DEXTROSE 5% 100ML 100 ML IV SCH ×2 (12:00→20:00)
[2017-04-19] MEDS ORDERED: FUROSEMIDE INJ 40 MG in SYRINGE 0 ML IV ONE (14:00)
--- NOTE | 2017-04-19 14:06 | Pharmacy Progress Note ---
Glycemic Control Progress Note Date of Service Apr 19, 2017. Scope Glycemic Pharmacist consulted for glycemic control to write orders per [facility] inpatient glycemic control protocol. Objective Accuchecks BSG (last 24hrs): Test 04/18/17 16:28 04/18/17 20:20 04/19/17 05:28 04/19/17 07:24 Bedside Glucose 171 mg/dl (70-90) 157 mg/dl (70-90) 163 mg/dl (70-90) Random Glucose 166 mg/dl (70-99) Test 04/19/17 11:25 Bedside Glucose 196 mg/dl (70-90) HbA1c: Test 04/17/17 08:42 Hemoglobin A1c 8.5 % (4.5-5.6) H Recent Pertinent Medications The patient is currently receiving: * Basal insulin: Levemir 15 units every 12 hours * Correctional Insulin: Novolog Correction per scale ACHS Goal Range: Low 110 mg/dL - High 140 mg/dL Correction Factor: 20 mg/dL/unit * Prandial insulin: Per carb ratio of 1 unit per 6 grams CHO consumed Outpatient Anti-Diabetic Meds Levemir 15 units Q HS Metformin 1gm PO BID Assessment & Plan ASSESSMENT: 04/18/17 * Patient presented on 04/16 with severe hyperglycemia. IV insulin drip was initiated and subsequently discontinued the AM on 04/17, however BSGs quickly rebounded back into the 300's - likely due to insufficient basal insulin at the time the drip was discontinued. Insulin drip was again started and subsequently discontinued last evening. * This AM fasting BSG 86-154 with 50 units of basal insulin on board. The patient is currently ordered 2x her home dose of Levemir, which would be equivalent to a moderate-severe stress dose based upon weight. Of note, she had required a fair amount of IV insulin (~3-5units/hr) despite receiving Levemir SQ. Will continue the same for now as the fasting BSG at acceptable level this AM, but would have a low threshold for increasing the basal dose. * The current Novolog CF and CR are reasonable starting points 04/19/17 * Patient's glycemic control has been quite good over the last 24 hrs * BSGs have ranged 124-196, only 1 BSG above 180 * She has received 56 units of SQ insulin over the last 24 hrs and is tolerating her diet * Fasting BSG somewhat above goal this AM, FBS = 163, w/ 30 units of Levemir on board. Current Levemir dose is not reflective of steady-state and this fasting number may improve w/ repeat dosing. Will reevaluate tomorrow. * Post-prandial BSGs well controlled w/ current CR and CF PLAN FOR INPATIENT GLYCEMIC CONTROL: * Continuing Levemir 15 units SQ BID for now * Continuing correction factor of 20 mg/dl/unit * Continuing carb ratio of 1 unit per 6 grams CHO consumed * Continuing goal range of Low 110 mg/dL - High 140 mg/dL * Please note that the plan above was derived based on current level of insulin resistance and hospital stress. These recommendations are appropriate for inpatient admission only. Plan of care upon discharge will need to be reassessed to avoid potential outpatient hypo/hyperglycemia. Thank you.
[2017-04-19] MEDS: LEVOFLOXACIN / D5W 750 MG in PREMIXED IN D5W 150 ML IV SCH (15:41)
[2017-04-19] MEDS: DIGOXIN 0.125 MG TAB PO SCH (15:41)
--- NOTE | 2017-04-19 17:34 | Progress Note ---
Subjective Date of Service: Apr 19, 2017. Subjective Pt evaluation today including: conversation w/ patient, conversation w/ family (2 daughters at bedside), physical exam, chart review, lab review, review of studies (cxr), conversation w/ cycle consultant (pulmonary), review of inpatient medication list Pain: none PO Intake: normal Voiding: no voiding problems tele - uncontrolled a. fib overnight then, had significant orthopnea and dyspnea last pm resident MD was called to bedside this am; cxr obtained and additional lasix given by the time of my assessment - mid-morning -- the patient was feeling some better no mention of hemoptysis today both daughters report having sarcoid Review of Systems Constitutional: No fever Respiratory: + cough, + shortness of breath, + dyspnea on exertion Cardiac: + orthopnea, No chest pain Abdomen: No pain Objective Vital Signs Date Time Temp Pulse Resp B/P (MAP) Pulse Ox O2 Delivery O2 Flow Rate FiO2 04/19/17 16:00 Nasal Cannula 4.0 04/19/17 15:41 88 04/19/17 15:03 36.7 82 20 112/69 (83) 95 04/19/17 14:25 87 22 95 Nasal Cannula 4.0 04/19/17 12:05 Nasal Cannula 4.0 04/19/17 11:14 36.5 89 20 110/68 (82) 95 04/19/17 08:00 Nasal Cannula 4.0 04/19/17 07:31 36.7 111 20 127/82 (97) 91 04/19/17 07:25 87 22 93 Nasal Cannula 4.0 04/19/17 06:05 122 32 136/78 (97) 96 Nasal Cannula 4.0 04/19/17 05:14 131 28 93 Nasal Cannula 6.0 04/19/17 04:03 36.5 105 24 117/72 (87) 93 Nasal Cannula 4.0 04/19/17 04:00 Nasal Cannula 4.0 04/19/17 02:02 115 24 93 Nasal Cannula 4.0 04/19/17 00:00 Nasal Cannula 4.0 04/18/17 23:35 36.4 103 22 140/91 (107) 94 Nasal Cannula 3.0 04/18/17 21:50 106 114/68 (83) 04/18/17 20:00 Nasal Cannula 4.0 04/18/17 19:31 106 20 94 Nasal Cannula 4.0 04/18/17 19:19 36.6 109 20 106/64 (78) 90 Nasal Cannula 4.0 Physical Exam General Appearance: no apparent distress ENT: pharynx normal Neck: + JVD (to the jaw) Respiratory/Chest: no respiratory distress, no accessory muscle use, + rales ( no change from yesterday's exam) Cardiovascular: no murmur, + tachycardia, + irregularly irregular Abdomen: normal bowel sounds, non tender, soft, no organomegaly Extremities: + pedal edema (1+ b/l ) Neurologic/Psychiatric: alert, oriented x 3 Laboratory Results Last 24 Hours Test 04/18/17 20:20 04/19/17 05:28 04/19/17 07:24 04/19/17 11:25 Bedside Glucose 157 mg/dl 163 mg/dl 196 mg/dl White Blood Count 19.36 K/uL Red Blood Count 3.58 M/uL Hemoglobin 9.4 g/dL Hematocrit 30.5 % Mean Corpuscular Volume 85.2 fL Mean Corpuscular Hemoglobin 26.3 pg Mean Corpuscular Hemoglobin Concent 30.8 g/dl RDW Standard Deviation 51.9 fL RDW Coefficient of Variation 16.6 % Platelet Count 308 K/uL Mean Platelet Volume 9.1 fL Prothrombin Time 18.7 SECONDS Prothromb Time International Ratio 1.7 Sodium Level 138 mmol/L Potassium Level 3.7 mmol/L Chloride Level 104 mmol/L Carbon Dioxide Level 27 mmol/L Anion Gap 7.0 mmol/L Blood Urea Nitrogen 16 mg/dl Creatinine 0.64 mg/dl Est Creatinine Clear Calc Drug Dose 73.3 ml/min Estimated GFR () 98.4 Estimated GFR (Non- 84.9 BUN/Creatinine Ratio 25.1 Random Glucose 166 mg/dl Calcium Level 8.0 mg/dl Magnesium Level 1.5 mg/dl Digoxin Level 0.4 ng/ml Test 04/19/17 16:41 Bedside Glucose 128 mg/dl Assessment and Plan 77yo female with: 1. acute/chronic hypoxic respiratory failure - acute component probably multifactorial including acute/chronic CHF, PF exacerbation, etc. 2. acute/chronic diastolic CHF in setting of chronic cor pulmonale/right-sided CHF - worse overnight. Agree with ongoing diuresis - increase to 40mg BID of IV lasix. K/mag supplementation. Daily weights, fluid restriction. 3. a. fib - rates unacceptable. Increase cardizem to 240mg qam. Cont digoxin. 4. supratherapeutic INR in setting of hemoptysis - continue to hold the coumadin due to recent hemoptysis. Defer to pulmonary if bronchoscopy, etc is needed. 5. pulmonary HTN - severe. 6. T2DM - control acceptable. Pharmacy managing. 7. pulmonary fibrosis with exacerbation - on abx, nebs, inhalers. Appreciate pulmonary consultation. Day #4 of IV abx therapy. Change levaquin to PO. Consider d/c cefepime tomorrow. 8. PT, OT evals 9. leukocytosis - due to recent steroids? infectious process? other? follow improved 10. hypomagnesemia - replace IV/PO. mag level am. 11. recent shingles exposure - daughter had shingles recently but did NOT have direct skin to skin contact with patient. d/c acyclovir. 12. ?sarcoid - would really need lung bx but too ill to safely perform. Family understands. family updated at bedside Continued [facility] stay due to: abnormal vital signs, multiple IV medications needed Discharge planning: uncertain
[2017-04-19] MEDS: PRAVASTATIN SOD 40 MG TAB PO SCH (19:45)
[2017-04-19] MEDS: ENALAPRIL MALEATE 10 MG TAB PO SCH (19:45)
[2017-04-19] MEDS ORDERED: POTASSIUM CHLORIDE 10 MEQ TABCR PO SCH (21:00)
[2017-04-19] MEDS ORDERED: COUGH DROP (SUGAR FREE) LOZ 24 LOZ/1 BOX PO PRN (23:45)
[2017-04-20] VITALS (11 sets, daily range): BP systolic 118–135; BP diastolic 68–79; PULSE 72–99; TEMP 36.4–36.9; O2SAT 90–99
[2017-04-20] MEDS: LEVALBUTEROL 1.25MG/0.5ML NEB INH SCH ×4 (01:52→19:38)
[2017-04-20] MEDS: IPRATROPIUM BROMIDE NEB SOLN 0.02% 2.5 ML VIAL INH SCH ×3 (01:52→19:38)
[2017-04-20] MEDS: CEFEPIME IV 2,000 MG in DEXTROSE 5% 100ML 100 ML IV SCH ×3 (05:50→21:40)
[2017-04-20 05:58] LABS: BUN/CREATININE RATIO 25.6 (10-20); CALCIUM 8.4 mg/dl (8.5-10.1); CREATININE 0.71 mg/dl (0.60-1.20); POTASSIUM 3.7 mmol/L (3.5-5.1)
[2017-04-20] MEDS: BUDESONIDE 0.5 MG/2 ML VIAL (PULMICORT) INH SCH ×2 (07:08→19:39)
[2017-04-20] MEDS: ACETAMINOPHEN 325 MG TAB PO PRN ×2 (07:11→18:36)
[2017-04-20] MEDS: DULOXETINE HCL 60 MG CAP PO SCH (07:54)
[2017-04-20] MEDS: DILTIAZEM HCL 120 MG EXT REL CAP PO SCH (07:54)
[2017-04-20] MEDS: MAGNESIUM OXIDE 400 MG TAB PO SCH ×2 (07:54→20:57)
[2017-04-20] MEDS: ASPIRIN 81 MG ECTAB PO SCH (07:55)
[2017-04-20] MEDS: PANTOprazole SOD 40 MG TAB PO SCH ×2 (07:55→20:58)
[2017-04-20] MEDS: BENZONATATE 100MG CAP PO SCH ×3 (07:55→20:58)
[2017-04-20] MEDS: POTASSIUM CHLORIDE 10 MEQ TABCR PO SCH ×2 (07:55→20:57)
[2017-04-20] MEDS: TIOTROPIUM BROMIDE 5 PUFF/90 MCG INH INH SCH (07:56)
[2017-04-20] MEDS: FLUTICASONE PROPIONATE NA SPR 16 GM BTL NAE SCH (07:57)
[2017-04-20] MEDS: INSULIN ASPART 100 UNITS/ML 3 ML PEN SC SCH ×4 (08:01→20:47)
[2017-04-20] MEDS: INSULIN DETEMIR FLEXPEN/FLEX TOUCH 100 UNITS/ML 3ML SC SCH ×2 (08:02→21:01)
[2017-04-20] MEDS: FUROSEMIDE INJ 40 MG in SYRINGE 0 ML IV SCH ×2 (08:02→16:21)
--- NOTE | 2017-04-20 11:49 | Pharmacy Progress Note ---
Glycemic Control Progress Note Date of Service Apr 20, 2017. Scope Glycemic Pharmacist consulted for glycemic control to write orders per [facility] inpatient glycemic control protocol. Objective Accuchecks BSG (last 24hrs): Test 04/19/17 16:41 04/19/17 19:58 04/20/17 05:14 04/20/17 07:35 Bedside Glucose 128 mg/dl (70-90) 154 mg/dl (70-90) 199 mg/dl (70-90) Random Glucose 194 mg/dl (70-99) HbA1c: Test 04/17/17 08:42 Hemoglobin A1c 8.5 % (4.5-5.6) H Recent Pertinent Medications Assessment & Plan ASSESSMENT: * See progress note from 04/16/17 for more background info, in short: Pt receiving SQ basal bolus insulin regimen for hyperglycemia secondary to baseline DM (outpatient regimen on hold) and stress/infection * Patient is currently receiving an average of 64 units of insulin per day * 30 units of basal insulin * 34 units of prandial/correctional insulin * BSGs ranging 128-196 mg/dl over the past 24hrs * Changes needed to insulin regimen: * AM Fasting BSG = 199 mg/dl. This is in slightly above goal range for patient based on inpatient targets and co-morbidities. Therefore Basal insulin needs increased further. Increase by 20%. * Post-prandial BSGs are in range therefore no changes needed to CF/CR PLAN FOR INPATIENT GLYCEMIC CONTROL: * Oral Agents * Continue to hold outpatient oral diabetes medications. * Basal insulin: Increase * Lantus 18 units SQ BID * Bolus insulin * NovoLog per scale ACHS or Q6hrs while NPO * Goal Range: Low 110 mg/dL - High 140 mg/dL * Correction Factor: 20 mg/dL/unit * Nutritional / Prandial insulin per carb ratio of 1 unit per 6 grams CHO consumed * Please note that the plan above was derived based on current level of insulin resistance and hospital stress. These recommendations are appropriate for inpatient admission only. Plan of care upon discharge will need to be reassessed to avoid potential outpatient hypo/hyperglycemia. Thank you.
[2017-04-20] MEDS: LEVOFLOXACIN 750 MG TAB PO SCH (12:00)
[2017-04-20] MEDS ORDERED: SODIUM CHLORIDE 0.65% NA SOLN 45 ML (OCEAN) PRN (13:00)
[2017-04-20] MEDS: MUPIROCIN 2% OINT 22 GM TUBE EXT SCH ×2 (14:32→20:56)
[2017-04-20] MEDS: DIGOXIN 0.125 MG TAB PO SCH (16:21)
--- NOTE | 2017-04-20 16:22 | PULMONARY PROGRESS NOTE ---
DATE: 04/20/2017 TIME: 2:15 p.m. SUBJECTIVE: The patient is still short of breath with any exertion. She thinks she might feel a little better since she came here 4 days ago. She has been coughing up a little bit of blood, she states for almost a month. However, she has been on anticoagulation. At home, she takes warfarin. Her breathing issues have been especially severe for the past year or two. She is frustrated after several hospital stays. She saw Dr. Patterson in his office last week. A nebulizer was prescribed. Prednisone and azithromycin were started. In spite of that, her symptoms progressed. She went to the ER at [facility]. They did ultimately transfer her here. The patient tells me she thinks she had a CAT scan of the chest done here, but we cannot find any record of this. She is not having any chest pains. OBJECTIVE: GENERAL: The patient appeared slightly short of breath at rest. She was sitting upright. Temperature is 36.9. She has not had any significant fevers since admission. ENT: Essentially unremarkable. VITAL SIGNS: Heart rate was 80 per minute. It appeared regular. Blood pressure 120/68. LUNGS: Auscultation of the lung de león reveals rales throughout posteriorly. These sound dry to me. Respiratory rate is 20 breaths per minute. Oxygen saturation is 99% on 4 liters. EXTREMITIES: Revealed +1 edema of both lower extremities. There was no CBC done today. Yesterday, the white count was 19.36. It could be that this is elevated, related to steroids. Her initial white count on the was 15.27. Hemoglobin is 9.4. Platelets are 308,000. Sed rate on the was 68 and on the was 61. INR today is 1.7. Blood gas on the on admission showed a pH of 7.47 with a pCO2 of 34 and a pO2 of 73 on 4 liters. Electrolytes show sodium 139, potassium 3.7, chloride 102, bicarb 31. BUN was 18 with creatinine 0.71. The patient has an echocardiogram which reports severe pulmonary hypertension. She also carries a history of grade 3 diastolic dysfunction. IMPRESSIONS: 1. Interstitial lung disease. 2. Mediastinal adenopathy. 3. Hemoptysis. 4. Pulmonary hypertension. COMMENTS AND RECOMMENDATIONS: We need to be able to view her CAT scan that was done at [facility]. I have spoken with Dr. Andrade. She will try and contact them to arrange those CAT scans to be put in our PACS system. She has had a number of lab tests done, I do not see that. An angiotensin converting enzyme level was done. We will put that in for her to have it drawn tomorrow. For now, the patient remains on levofloxacin. She is also getting cefepime. She is getting tiotropium. She gets budesonide by nebulizer and she is getting levalbuterol and ipratropium by nebulizer. I believe that Dr. Patterson had started her on prednisone last week. I do not see however that that is listed on her medication list. We will discuss the steroid situation with Dr. Khun after I have seen her CAT scan. Dr. Kuhn did ask me to reevaluate this patient today.
[2017-04-20] MEDS: PRAVASTATIN SOD 40 MG TAB PO SCH (20:58)
[2017-04-20] MEDS: ENALAPRIL MALEATE 10 MG TAB PO SCH (20:59)
--- NOTE | 2017-04-20 22:43 | Progress Note ---
Subjective Date of Service: Apr 20, 2017. Subjective Pt evaluation today including: conversation w/ patient, physical exam, chart review, lab review, conversation w/ consultant internship (pulmonary), review of inpatient medication list Pain: denies PO Intake: normal Voiding: no voiding problems tele with rate-controlled a. fib feels "a little better" less dyspnea, less cough, but still w/ orthopnea had nosebleed last pm - lasted about 5 minutes also with ongoing hemoptysis - about a teaspoon per day Review of Systems Constitutional: No fever Respiratory: + cough, + sputum, + dyspnea on exertion, + hemoptysis Cardiac: + orthopnea, No chest pain Abdomen: No pain Objective Vital Signs Date Time Temp Pulse Resp B/P (MAP) Pulse Ox O2 Delivery O2 Flow Rate FiO2 04/20/17 12:14 Nasal Cannula 4.0 04/20/17 11:37 36.9 85 16 120/68 (85) 99 Nasal Cannula 4.0 04/20/17 08:00 Nasal Cannula 4.0 04/20/17 07:18 36.4 89 16 126/76 (93) 97 Nasal Cannula 4.0 04/20/17 07:15 72 18 91 Nasal Cannula 4.0 04/20/17 04:00 Nasal Cannula 4.0 04/20/17 03:41 36.7 93 20 118/70 (86) 90 4.5 04/20/17 01:52 84 18 96 Nasal Cannula 4.0 04/20/17 00:00 Nasal Cannula 4.0 04/19/17 23:40 36.4 93 22 111/61 (78) 94 4.5 04/19/17 20:00 Nasal Cannula 4.0 04/19/17 19:30 36.6 97 20 122/74 (90) 92 4.0 04/19/17 19:22 85 18 90 Nasal Cannula 4.0 04/19/17 16:00 Nasal Cannula 4.0 04/19/17 15:41 88 04/19/17 15:03 36.7 82 20 112/69 (83) 95 04/19/17 14:25 87 22 95 Nasal Cannula 4.0 Physical Exam General Appearance: no apparent distress ENT: pharynx normal, + pertinent finding (dried blood in right nare; very dry mucosa in left nare) Neck: + JVD Respiratory/Chest: no respiratory distress, no accessory muscle use, + rales ( bases) Cardiovascular: no gallop, + systolic murmur (2/6 LSB), + irregularly irregular Abdomen: normal bowel sounds, non tender, soft, no organomegaly Extremities: + pedal edema (<1+ b/l ) Neurologic/Psychiatric: alert, oriented x 3 Laboratory Results Last 24 Hours Test 04/19/17 16:41 04/19/17 19:58 04/20/17 05:14 04/20/17 07:35 Bedside Glucose 128 mg/dl 154 mg/dl 199 mg/dl Erythrocyte Sedimentation Rate 68 mm/hr Sodium Level 139 mmol/L Potassium Level 3.7 mmol/L Chloride Level 102 mmol/L Carbon Dioxide Level 31 mmol/L Anion Gap 6.0 mmol/L Blood Urea Nitrogen 18 mg/dl Creatinine 0.71 mg/dl Est Creatinine Clear Calc Drug Dose 66.0 ml/min Estimated GFR () 93.9 Estimated GFR (Non- 81.0 BUN/Creatinine Ratio 25.6 Random Glucose 194 mg/dl Calcium Level 8.4 mg/dl Magnesium Level 2.0 mg/dl Test 04/20/17 11:57 Bedside Glucose 154 mg/dl Assessment and Plan 77yo female with: 1. acute/chronic hypoxic respiratory failure - acute component probably multifactorial including acute/chronic CHF, PF exacerbation, etc. 2. acute/chronic diastolic CHF in setting of chronic cor pulmonale/right-sided CHF - slowly improving. Reports dry weight is about 180 pounds. Continue lasix 40mg IV BID. K/mag supplementation. Daily weights, fluid restriction. 3. a. fib - rates improved with higher dose of cardizem. Cont digoxin. 4. supratherapeutic INR in setting of hemoptysis - continue to hold the coumadin due to recent hemoptysis. Defer to pulmonary if bronchoscopy, etc is needed. 5. pulmonary HTN - severe. 6. T2DM - control acceptable. Pharmacy managing. 7. pulmonary fibrosis with exacerbation - on abx, nebs, inhalers. Appreciate pulmonary consultation. Day #5 of IV abx therapy. On levaquin and cefepime. Consider d/c of cefepime. 8. PT, OT evals 9. leukocytosis - due to recent steroids? infectious process? other? follow improved 10. hypomagnesemia - normal. 11. recent shingles exposure - daughter had shingles recently but did NOT have direct skin to skin contact with patient. d/c acyclovir. 12. ?sarcoid - would really need lung bx but too ill to safely perform. Family understands. Sed rate today is modestly worse than previous. I spoke with pulmonary regarding the ? of sarcoid. PRAKASH level ordered. 13. epistaxis - start bactroban ointment BID to nares and nasal saline prn. Continued [facility] stay due to: abnormal vital signs, multiple IV medications needed Discharge planning: uncertain
[2017-04-21] VITALS (13 sets, daily range): BP systolic 113–132; BP diastolic 52–78; PULSE 78–105; TEMP 36.5–36.9; O2SAT 90–98
[2017-04-21] MEDS: IPRATROPIUM BROMIDE NEB SOLN 0.02% 2.5 ML VIAL INH SCH ×4 (02:10→19:09)
[2017-04-21] MEDS: LEVALBUTEROL 1.25MG/0.5ML NEB INH SCH ×4 (02:10→19:09)
[2017-04-21 05:46] LABS: BASO % 0.2 %; BASO ABS # 0.04 K/uL (0-0.2); COMPLETE YES; EOS % 5.5 %; HEMATOCRIT 30.4 % (37-47); IG% 1.1 %; LYMPH % 8.9 %; LYMPH ABS # 1.64 K/uL (1.2-3.4); MEAN CELL VOLUME 86.1 fL (80-100); MEAN CORPUSCULAR HEMOGLOBIN 26.3 pg (25-34); MEAN CORPUSCULAR HGB CONC 30.6 g/dl (32-36); MEAN PLATELET VOLUME 9.2 fL (7.4-10.4); MONO % 8.8 %; NEUT % 75.5 %; PLATELET COUNT 347 K/uL (130-400); RED BLOOD COUNT 3.53 M/uL (4.2-5.4); WHITE BLOOD COUNT 18.49 K/uL (4.8-10.8)
[2017-04-21] MEDS: CEFEPIME IV 2,000 MG in DEXTROSE 5% 100ML 100 ML IV SCH (05:57)
[2017-04-21] MEDS: ACETAMINOPHEN 325 MG TAB PO PRN ×2 (05:59→23:26)
[2017-04-21 06:01] LABS: INR 1.2 (0.9-1.1); PROTHROMBIN TIME (PATIENT) 13.4 SECONDS (9.0-12.0)
[2017-04-21 06:24] LABS: BUN/CREATININE RATIO 25.4 (10-20); CREATININE 0.71 mg/dl (0.60-1.20); POTASSIUM 4.3 mmol/L (3.5-5.1)
[2017-04-21] MEDS: BUDESONIDE 0.5 MG/2 ML VIAL (PULMICORT) INH SCH ×2 (07:03→19:09)
[2017-04-21] MEDS: INSULIN ASPART 100 UNITS/ML 3 ML PEN SC SCH ×3 (09:32→21:00)
[2017-04-21] MEDS: INSULIN DETEMIR FLEXPEN/FLEX TOUCH 100 UNITS/ML 3ML SC SCH ×2 (09:35→21:23)
[2017-04-21] MEDS: TIOTROPIUM BROMIDE 5 PUFF/90 MCG INH INH SCH (09:41)
[2017-04-21] MEDS: ASPIRIN 81 MG ECTAB PO SCH (09:42)
[2017-04-21] MEDS: PANTOprazole SOD 40 MG TAB PO SCH ×2 (09:42→21:18)
[2017-04-21] MEDS: DULOXETINE HCL 60 MG CAP PO SCH (09:43)
[2017-04-21] MEDS: POTASSIUM CHLORIDE 10 MEQ TABCR PO SCH ×2 (09:43→21:17)
[2017-04-21] MEDS: BENZONATATE 100MG CAP PO SCH ×3 (09:44→21:18)
[2017-04-21] MEDS: MAGNESIUM OXIDE 400 MG TAB PO SCH ×2 (09:44→21:17)
[2017-04-21] MEDS: DILTIAZEM HCL 120 MG EXT REL CAP PO SCH (09:46)
[2017-04-21] MEDS: FLUTICASONE PROPIONATE NA SPR 16 GM BTL NAE SCH (09:46)
[2017-04-21] MEDS: MUPIROCIN 2% OINT 22 GM TUBE EXT SCH ×2 (09:46→21:00)
[2017-04-21] MEDS: FUROSEMIDE INJ 40 MG in SYRINGE 0 ML IV SCH ×2 (09:48→16:32)
--- NOTE | 2017-04-21 11:03 | Progress Note ---
Subjective Date of Service: Apr 21, 2017. Subjective Pt evaluation today including: conversation w/ patient, physical exam, chart review, lab review, review of studies (CT scan from [facility]), conversation w/ [employer] consultant (pulmonary) Pain: abd pain - now resolved (was constipated) PO Intake: normal Voiding: no voiding problems tele w/ rate-controlled a. fib. dyspnea continues but mildly better. hemoptysis resolved. no further nosebleeds. slept better last night. Review of Systems Constitutional: No fever, No chills Respiratory: + cough, + sputum, + dyspnea on exertion Cardiac: + edema (but improved), No chest pain Abdomen: + pain, + constipation, No nausea, No vomiting Objective Vital Signs Date Time Temp Pulse Resp B/P (MAP) Pulse Ox O2 Delivery O2 Flow Rate FiO2 04/21/17 08:07 95 Nasal Cannula 4.0 Humidified Oxygen 04/21/17 08:00 95 Nasal Cannula 4.0 04/21/17 07:46 36.8 100 16 130/78 (95) 95 Nasal Cannula 4.0 Humidified Oxygen 04/21/17 07:06 94 20 98 Nasal Cannula 5.0 04/21/17 04:00 36.5 95 20 114/66 (82) 95 Nasal Cannula 4.0 04/21/17 04:00 97 Nasal Cannula 4.0 04/21/17 02:10 105 30 92 Nasal Cannula 5.0 04/21/17 00:00 97 Nasal Cannula 4.0 04/20/17 23:08 36.9 99 20 134/71 (92) 92 Nasal Cannula 5.0 04/20/17 20:00 97 Nasal Cannula 4.0 04/20/17 19:44 36.5 92 22 135/79 (97) 97 Room Air 04/20/17 19:39 88 20 93 Nasal Cannula 5.0 04/20/17 16:21 86 04/20/17 16:09 Nasal Cannula 4.0 04/20/17 15:16 36.6 84 20 124/70 (88) 95 Nasal Cannula 5.0 04/20/17 14:14 82 18 93 Nasal Cannula 5.0 04/20/17 12:14 Nasal Cannula 4.0 04/20/17 11:37 36.9 85 16 120/68 (85) 99 Nasal Cannula 4.0 Physical Exam General Appearance: no apparent distress ENT: pharynx normal Neck: + JVD Respiratory/Chest: no respiratory distress, no accessory muscle use, + rales ( fine, both bases - mildly improved today) Cardiovascular: no gallop, + irregularly irregular Abdomen: normal bowel sounds, non tender, soft, no organomegaly Extremities: + pedal edema (trace b/l ) Neurologic/Psychiatric: alert, oriented x 3 Laboratory Results Last 24 Hours Test 04/20/17 11:57 04/20/17 16:13 04/20/17 20:18 04/21/17 05:27 Bedside Glucose 154 mg/dl 197 mg/dl 130 mg/dl White Blood Count 18.49 K/uL Red Blood Count 3.53 M/uL Hemoglobin 9.3 g/dL Hematocrit 30.4 % Mean Corpuscular Volume 86.1 fL Mean Corpuscular Hemoglobin 26.3 pg Mean Corpuscular Hemoglobin Concent 30.6 g/dl Platelet Count 347 K/uL Mean Platelet Volume 9.2 fL Neutrophils (%) (Auto) 75.5 % Lymphocytes (%) (Auto) 8.9 % Monocytes (%) (Auto) 8.8 % Eosinophils (%) (Auto) 5.5 % Basophils (%) (Auto) 0.2 % Neutrophils # (Auto) 13.96 K/uL Lymphocytes # (Auto) 1.64 K/uL Monocytes # (Auto) 1.63 K/uL Eosinophils # (Auto) 1.02 K/uL Basophils # (Auto) 0.04 K/uL RDW Standard Deviation 52.6 fL RDW Coefficient of Variation 16.9 % Immature Granulocyte % (Auto) 1.1 % Immature Granulocyte # (Auto) 0.20 K/uL Prothrombin Time 13.4 SECONDS Prothromb Time International Ratio 1.2 Sodium Level 140 mmol/L Potassium Level 4.3 mmol/L Chloride Level 102 mmol/L Carbon Dioxide Level 32 mmol/L Anion Gap 6.0 mmol/L Blood Urea Nitrogen 18 mg/dl Creatinine 0.71 mg/dl Est Creatinine Clear Calc Drug Dose 65.3 ml/min Estimated GFR () 93.9 Estimated GFR (Non- 81.0 BUN/Creatinine Ratio 25.4 Random Glucose 179 mg/dl Calcium Level 9.0 mg/dl Test 04/21/17 07:10 Bedside Glucose 170 mg/dl Assessment and Plan 77yo female with: 1. acute/chronic hypoxic respiratory failure - acute component probably multifactorial including acute/chronic CHF, PF exacerbation, etc. Slowly improving. 2. acute/chronic diastolic CHF in setting of chronic cor pulmonale/right-sided CHF - slowly improving. Reports dry weight is about 180 pounds. Continue lasix 40mg IV BID. K/mag supplementation. Daily weights, fluid restriction. BUN and Cr are stable. She sounds better. 3. a. fib - rates improved with higher dose of cardizem. Cont digoxin. Coumadin on hold due to recent hemoptysis and epistaxis. 4. supratherapeutic INR in setting of hemoptysis - resolved. 5. pulmonary HTN - severe. 6. T2DM - control acceptable. Pharmacy managing. 7. pulmonary fibrosis with exacerbation - on abx, nebs, inhalers. Appreciate pulmonary consultation. Day #6 of IV abx therapy. d.c cefepime. cont levaquin to complete 10 days in total. spoke with Dr. Deluna today - plan is for solumedrol 40mg Q12h while here followed by several weeks of prednisone to see if her ILD responds to such. PRAKASH level pending to r/o sarcoid. 8. PT, OT evals - dispo SNF?? 9. leukocytosis - due to recent steroids? infectious process? other? follow improving albeit slowly 10. ?sarcoid - would really need lung bx but too ill to safely perform. Family understands. Sed rate modestly worse than previous. I spoke with pulmonary regarding the ? of sarcoid. PRAKASH level ordered. steroids started. 11. epistaxis - bactroban ointment BID to nares and nasal saline prn. Improved. Continued [facility] stay due to: multiple IV medications needed Discharge planning: uncertain
--- NOTE | 2017-04-21 11:53 | PULMONARY PROGRESS NOTE ---
DATE: 04/21/2017 DATE: 04/21/2017 TIME: 10:45 a.m. SUBJECTIVE: The patient remains short of breath. She feels about the same as yesterday. She states she might feel a little better. She does notice that she is on the commode a lot to urinate. She has had a very good negative balance over the past 3 days for output. Yesterday she had a negative balance of -1,338. Her weights have not changed however. It could be because they are measuring on the bed scale. She continues with her cough, which is relatively nonproductive. We were able to retrieve the CAT scan done at [facility]. This showed evidence of significant interstitial disease bilaterally, somewhat greater on the right than the left. The right lung involvement is in all 3 lobes. The left lung involvement is in the mid and lower areas predominantly. The right base has some pleural thickening or pleural disease. There is adenopathy. This would be compatible with sarcoidosis. However, it would be compatible with other disorders as well. OBJECTIVE: GENERAL: The patient is comfortable at rest. VITAL SIGNS: She is afebrile with temperature of 36.8. EARS, NOSE, THROAT: Unremarkable and unchanged from yesterday. HEART: Heart rate was 100 per minute. The rhythm was irregular. Blood pressure is 130/78. LUNGS: Auscultation of the lung de león reveals diffuse rales posteriorly bilaterally. Respiratory rate was 20 breaths per minute. Oxygen saturation was 95% on 4 liter nasal cannula. EXTREMITIES: Shows no cyanosis, clubbing or edema. LABORATORY DATA: Electrolytes today show sodium 140, potassium 4.3, chloride 102, bicarb 32. BUN is 18 with a creatinine of 0.71. Blood sugar today was as high as 199. The JACKIE screen, ANCA levels, and compliments are pending. The angiotensin converting enzyme level is pending. IMPRESSIONS: 1. Interstitial lung disease. 2. Mediastinal adenopathy. 3. Hemoptysis. 4. Pulmonary hypertension. COMMENTS AND RECOMMENDATIONS: After reviewing her CAT scan I believe it is reasonable to put the patient on steroids and give her a trial over the course of a couple of months at least. The CAT scan is very abnormal. She is not good enough for biopsy. The hope would be that this would be some type of steroid responsive disorder such as sarcoidosis. I discussed this with the patient and also with Dr. Kuhn. The patient said she has been on prednisone in the past but just for a week or 2 at a time. We are going to have her get her daily weights done on a standing scale rather than a bed scale. This will be more accurate in terms of documented if we are able to mobilize fluid. As discussed with Dr. Kuhn will start the Solu-Medrol at 40 mg IV q. 12 hours for now and then send home with prednisone about 40 mg per day when she is ready for discharge.
[2017-04-21] MEDS: METHYLPREDNISOLONE IV 40 MG in SYRINGE 0 ML IV SCH ×2 (12:49→21:24)
[2017-04-21] MEDS: LEVOFLOXACIN 750 MG TAB PO SCH (12:50)
[2017-04-21] MEDS ORDERED: INSULIN DETEMIR FLEXPEN/FLEX TOUCH 100 UNITS/ML 3ML SC ONE ×2 (13:15)
--- NOTE | 2017-04-21 13:22 | Pharmacy Progress Note ---
Glycemic Control Progress Note Date of Service Apr 21, 2017. Scope Glycemic Pharmacist consulted for glycemic control to write orders per [facility] inpatient glycemic control protocol. Objective Accuchecks BSG (last 24hrs): Test 04/20/17 16:13 04/20/17 20:18 04/21/17 05:27 04/21/17 07:10 Bedside Glucose 197 mg/dl (70-90) 130 mg/dl (70-90) 170 mg/dl (70-90) Random Glucose 179 mg/dl (70-99) Test 04/21/17 11:27 Bedside Glucose 265 mg/dl (70-90) HbA1c: Test 04/17/17 08:42 Hemoglobin A1c 8.5 % (4.5-5.6) H Recent Pertinent Medications * Basal insulin * Levemir 18 units SQ BID * Bolus insulin * NovoLog per scale ACHS or Q6hrs while NPO * Goal Range: Low 110 mg/dL - High 140 mg/dL * Correction Factor: 20 mg/dL/unit * Nutritional / Prandial insulin per carb ratio of 1 unit per 6 grams CHO consumed Outpatient Anti-Diabetic Meds Levemir + metformin Assessment & Plan ASSESSMENT: * See progress note from 04/16/17 for more background info, in short: Pt receiving SQ basal bolus insulin regimen for hyperglycemia secondary to baseline DM (outpatient regimen on hold) and stress/infection * Pt was on a short course of IV steroids earlier this admission which required her to be on an insulin infusion * This afternoon it was decided per hospitalist and pulmonology that patient needs steroids (IV at this time and planned PO on discharge) * Immediately following first dose of 40 mg IV BSGs have climbed >250 mg/dL * Spoke with MD, re-start insulin drip for BSG >180 * I gave an extra dose of Levemir when steroids initiated which is holding insulin drip off for now, but if BSGs climb, start drip per protocol PLAN FOR INPATIENT GLYCEMIC CONTROL: * Oral Agents * Continue to hold outpatient oral diabetes medications. * Initiate Insulin Drip for BSG >180 * High stress * Goal range 120-200 mg/dL * Continue Levemir 18 units BID in addition to Insulin drip so that patient is not basal deficient when transitioned off insulin drip * Please note that the plan above was derived based on current level of insulin resistance and hospital stress. These recommendations are appropriate for inpatient admission only. Plan of care upon discharge will need to be reassessed to avoid potential outpatient hypo/hyperglycemia. Thank you.
[2017-04-21] MEDS ORDERED: INSULIN IV INFUSION PROTOCOL SCH (14:00)
[2017-04-21] MEDS ORDERED: INSULIN ASPART 100 UNITS/ML 3 ML PEN SC SCH (16:30)
[2017-04-21] MEDS: DIGOXIN 0.125 MG TAB PO SCH (16:32)
[2017-04-21] MEDS ORDERED: INSULIN HUMAN REGULAR IV BOLUS 2 UNIT in SYRINGE 0 ML IV SCH (21:00)
[2017-04-21] MEDS ORDERED: INSULIN DETEMIR FLEXPEN/FLEX TOUCH 100 UNITS/ML 3ML SC SCH (21:00)
[2017-04-21] MEDS: INSULIN REGULAR 250 UNITS in SODIUM CHLORIDE 0.9% 250ML 250 ML IV SCH ×2 (21:12→22:27)
[2017-04-21] MEDS: ENALAPRIL MALEATE 10 MG TAB PO SCH (21:18)
[2017-04-21] MEDS: PRAVASTATIN SOD 40 MG TAB PO SCH (21:18)
[2017-04-22] VITALS (10 sets, daily range): BP systolic 106–148; BP diastolic 63–80; PULSE 66–92; TEMP 36.4–36.7; O2SAT 90–98; Ht 157.5 cm; Wt 82.6 kg
[2017-04-22] MEDS ORDERED: INSULIN ASPART 100 UNITS/ML 3 ML PEN SC SCH ×2
[2017-04-22] MEDS: INSULIN REGULAR 250 UNITS in SODIUM CHLORIDE 0.9% 250ML 250 ML IV SCH ×13 (01:32→22:00)
[2017-04-22] MEDS: IPRATROPIUM BROMIDE NEB SOLN 0.02% 2.5 ML VIAL INH SCH ×4 (01:48→19:15)
[2017-04-22] MEDS: LEVALBUTEROL 1.25MG/0.5ML NEB INH SCH ×4 (01:49→19:15)
[2017-04-22] MEDS: BUDESONIDE 0.5 MG/2 ML VIAL (PULMICORT) INH SCH ×2 (07:08→19:15)
[2017-04-22 07:18] LABS: CALCIUM 9.4 mg/dl (8.5-10.1); CREATININE 0.69 mg/dl (0.60-1.20); MAGNESIUM 1.8 mg/dl (1.8-2.4); POTASSIUM 4.2 mmol/L (3.5-5.1)
[2017-04-22] MEDS: ACETAMINOPHEN 325 MG TAB PO PRN ×2 (08:20→20:46)
[2017-04-22] MEDS: MAGNESIUM OXIDE 400 MG TAB PO SCH ×2 (08:21→20:49)
[2017-04-22] MEDS: BENZONATATE 100MG CAP PO SCH ×3 (08:21→20:49)
[2017-04-22] MEDS: POTASSIUM CHLORIDE 10 MEQ TABCR PO SCH ×2 (08:21→20:47)
[2017-04-22] MEDS: FUROSEMIDE INJ 40 MG in SYRINGE 0 ML IV SCH ×2 (08:21→17:07)
[2017-04-22] MEDS: DILTIAZEM HCL 120 MG EXT REL CAP PO SCH (08:22)
[2017-04-22] MEDS: ASPIRIN 81 MG ECTAB PO SCH (08:22)
[2017-04-22] MEDS: PANTOprazole SOD 40 MG TAB PO SCH ×2 (08:23→20:48)
[2017-04-22] MEDS: DULOXETINE HCL 60 MG CAP PO SCH (08:23)
[2017-04-22] MEDS: INSULIN ASPART 100 UNITS/ML 3 ML PEN SC SCH ×4 (08:26→20:54)
[2017-04-22] MEDS: FLUTICASONE PROPIONATE NA SPR 16 GM BTL NAE SCH (08:27)
[2017-04-22] MEDS: MUPIROCIN 2% OINT 22 GM TUBE EXT SCH ×2 (08:27→20:46)
[2017-04-22] MEDS: INSULIN DETEMIR FLEXPEN/FLEX TOUCH 100 UNITS/ML 3ML SC SCH ×2 (08:27→20:52)
[2017-04-22] MEDS: TIOTROPIUM BROMIDE 5 PUFF/90 MCG INH INH SCH (09:05)
--- NOTE | 2017-04-22 10:14 | PULMONARY PROGRESS NOTE ---
DATE: 04/22/2017 TIME: 09:45 a.m. SUBJECTIVE: The patient feels the same way a little better. She was started on methylprednisolone yesterday. She has not noticed any hemoptysis. Her mucus is getting industrial welder in color. It appears cream colored. She has no chest pains. The patient once again is sitting on the commode. She states that she has to urinate so often. She states there are good part of the day. She diuresed very well yesterday with a total of 2650 mL of urine. Her negative balance was 1885 mL. OBJECTIVE: GENERAL: The patient appeared comfortable at rest. VITAL SIGNS: Temperature is 36.5. The cardiac rate is 95 per minute. The rhythm was irregular. Blood pressure is 128/80. Respiratory rate is 20 breaths per minute. HEENT: Pupils were reactive to light. Mouth exam showed dentures. No lymphadenopathy was noted. CHEST: Shows mild kyphosis. LUNGS: Patel reveal rales bilaterally. This involves all 3 areas on the right, upper, middle and lower. On the left, rales are only heard in the middle lobe and lower area. Saturation was 95% on 4 liters. EXTREMITIES: Revealed no edema. She does have intermittent compression device stockings on her legs. LABORATORY DATA: Electrolytes today show sodium 138, potassium 4.2, chloride 102, and bicarbonate 29. The BUN is 23 with a creatinine of 0.69. The blood sugars today have been as high as 172. The ANCA levels, JACKIE, and complements are still pending. Likewise, the angiotensin converting enzyme level is pending. IMPRESSIONS: 1. Interstitial lung disease -- exact etiology not clear. 2. Mediastinal adenopathy. 3. Hemoptysis -- resolved. 4. Pulmonary hypertension. COMMENTS AND RECOMMENDATIONS: I would continue with the Solu-Medrol for now. Her sugars have been reasonably well controlled despite the added steroids. Hopefully in a day or 2, she could be switched to oral prednisone. Would continue the levofloxacin. She may have an underlying infection based upon her mucus appearance. Would continue with her bronchodilators as prior. She is on tiotropium daily. She is also on levalbuterol and ipratropium. She is also on budesonide. The patient related that she cannot walk typically more than 5-10 feet even with a walker. Her walker at home has wheels on and she will sit on it and try and back up to get around with a walker while she is sitting. This is how she gets out of her apartment and goes to the elevator, etc. Thus, it is difficult to determine what is the end line for when she will be able to manage on her own.
--- NOTE | 2017-04-22 10:34 | Pharmacy Progress Note ---
Glycemic Control Progress Note Date of Service Apr 22, 2017. Scope Glycemic Pharmacist consulted for glycemic control to write orders per [facility] inpatient glycemic control protocol. Objective Accuchecks BSG (last 24hrs): Test 04/21/17 11:27 04/21/17 14:00 04/21/17 16:37 04/21/17 20:04 Bedside Glucose 265 mg/dl (70-90) 143 mg/dl (70-90) 129 mg/dl (70-90) 326 mg/dl (70-90) Test 04/21/17 20:08 04/21/17 22:21 04/21/17 23:14 04/22/17 00:14 Bedside Glucose 343 mg/dl (70-90) 302 mg/dl (70-90) 282 mg/dl (70-90) 268 mg/dl (70-90) Test 04/22/17 01:14 04/22/17 02:16 04/22/17 03:10 04/22/17 04:11 Bedside Glucose 296 mg/dl (70-90) 294 mg/dl (70-90) 251 mg/dl (70-90) 250 mg/dl (70-90) Test 04/22/17 05:12 04/22/17 06:06 04/22/17 06:21 04/22/17 07:13 Bedside Glucose 193 mg/dl (70-90) 168 mg/dl (70-90) 172 mg/dl (70-90) Random Glucose 161 mg/dl (70-99) Test 04/22/17 07:55 04/22/17 09:59 Bedside Glucose 159 mg/dl (70-90) 342 mg/dl (70-90) HbA1c: Test 04/17/17 08:42 Hemoglobin A1c 8.5 % (4.5-5.6) H Recent Pertinent Medications * Basal insulin * Levemir 18 units SQ BID * Insulin drip per protocol Outpatient Anti-Diabetic Meds Levemir plus metformin PO Assessment & Plan ASSESSMENT: * See progress note from 04/16/17 for more background info, in short: Pt receiving SQ basal bolus insulin regimen for hyperglycemia secondary to baseline DM (outpatient regimen on hold) and stress/infection * Pt was on a short course of IV steroids earlier this admission which required her to be on an insulin infusion * Yesterday afternoon it was decided per hospitalist and pulmonology that patient needs steroids (IV at this time and planned PO on discharge) * As expected, BSGs climbed and insulin drip initiated per protocol last night * I want to keep basal insulin on board so that patient is not basal deficient when we transition her * Plan however is not to transition patient while she is on IV steroids but transition when changed to PO PLAN FOR INPATIENT GLYCEMIC CONTROL: * Oral Agents * Continue to hold outpatient oral diabetes medications. * Initiate Insulin Drip for BSG >180 * High stress * Goal range 120-200 mg/dL * Increase to Levemir 22 units BID in addition to Insulin drip so that patient is not basal deficient when transitioned off insulin drip * Please note that the plan above was derived based on current level of insulin resistance and hospital stress. These recommendations are appropriate for inpatient admission only. Plan of care upon discharge will need to be reassessed to avoid potential outpatient hypo/hyperglycemia. Thank you.
[2017-04-22] MEDS: METHYLPREDNISOLONE IV 40 MG in SYRINGE 0 ML IV SCH ×2 (10:47→22:30)
[2017-04-22] MEDS: LEVOFLOXACIN 750 MG TAB PO SCH (10:47)
[2017-04-22] MEDS: DIGOXIN 0.125 MG TAB PO SCH (16:06)
--- NOTE | 2017-04-22 17:29 | Progress Note ---
Subjective Date of Service: Apr 22, 2017. Subjective Pt evaluation today including: conversation w/ patient, physical exam, chart review, lab review, conversation w/ performance consultant (pulmonary ), review of inpatient medication list Pain: none PO Intake: normal Voiding: no voiding problems tele with rate-controlled a. fib feels "a little better" - slightly less cough, dyspnea is about the same however hemoptysis resolved no further nosebleeds willing to go to "rehab" at [facility] in [place] Review of Systems Constitutional: No fever, No chills Respiratory: + cough, + sputum, No wheezing Cardiac: No chest pain Abdomen: No pain, No nausea, No vomiting, No diarrhea Objective Vital Signs Date Time Temp Pulse Resp B/P (MAP) Pulse Ox O2 Delivery O2 Flow Rate FiO2 04/22/17 16:06 92 04/22/17 16:00 Nasal Cannula 4.0 04/22/17 15:45 36.6 92 18 106/63 (77) 94 Nasal Cannula 4.0 04/22/17 13:59 85 20 94 Nasal Cannula 4.0 04/22/17 12:00 Nasal Cannula 4.0 04/22/17 11:51 36.4 66 20 122/78 (93) 96 Nasal Cannula 4.0 04/22/17 07:19 Nasal Cannula 4.0 04/22/17 07:08 79 20 95 Nasal Cannula 4.0 04/22/17 07:06 36.5 87 18 128/80 (96) 98 Nasal Cannula 4.0 04/22/17 04:00 36.5 32 148/74 (98) 93 Nasal Cannula 4.0 04/22/17 04:00 93 Nasal Cannula 4.0 04/22/17 01:49 88 20 94 Nasal Cannula 4.0 04/22/17 00:00 90 Nasal Cannula 4.0 04/21/17 23:42 36.6 92 20 119/63 (81) 90 Room Air 04/21/17 20:20 Nasal Cannula 4.0 04/21/17 19:14 98 20 93 Nasal Cannula 4.0 04/21/17 19:12 36.5 98 20 122/68 (86) 93 Nasal Cannula 4.0 Physical Exam General Appearance: no apparent distress ENT: pharynx normal (except MM dry today; no thrush) Neck: + JVD Respiratory/Chest: no respiratory distress, no accessory muscle use, + rales ( bases - slightly better) Cardiovascular: no gallop, + systolic murmur (1-2/6 LLSB), + irregularly irregular Abdomen: normal bowel sounds, non tender, soft, no organomegaly Extremities: no pedal edema Neurologic/Psychiatric: alert, oriented x 3 Laboratory Results Last 24 Hours Test 04/21/17 20:08 04/21/17 22:21 04/21/17 23:14 04/22/17 00:14 Bedside Glucose 343 mg/dl 302 mg/dl 282 mg/dl 268 mg/dl Test 04/22/17 01:14 04/22/17 02:16 04/22/17 03:10 04/22/17 04:11 Bedside Glucose 296 mg/dl 294 mg/dl 251 mg/dl 250 mg/dl Test 04/22/17 05:12 04/22/17 06:06 04/22/17 06:21 04/22/17 07:13 Bedside Glucose 193 mg/dl 168 mg/dl 172 mg/dl Sodium Level 138 mmol/L Potassium Level 4.2 mmol/L Chloride Level 102 mmol/L Carbon Dioxide Level 29 mmol/L Anion Gap 7.0 mmol/L Blood Urea Nitrogen 23 mg/dl Creatinine 0.69 mg/dl Est Creatinine Clear Calc Drug Dose 66.0 ml/min Estimated GFR () 96.0 Estimated GFR (Non- 82.8 BUN/Creatinine Ratio 33.0 Random Glucose 161 mg/dl Calcium Level 9.4 mg/dl Magnesium Level 1.8 mg/dl Test 04/22/17 07:55 04/22/17 09:59 04/22/17 11:00 04/22/17 12:01 Bedside Glucose 159 mg/dl 342 mg/dl 299 mg/dl 223 mg/dl Test 04/22/17 13:07 04/22/17 13:55 04/22/17 14:58 04/22/17 15:57 Bedside Glucose 269 mg/dl 272 mg/dl 286 mg/dl 219 mg/dl Test 04/22/17 17:05 Bedside Glucose 176 mg/dl Assessment and Plan 77yo female with: 1. acute/chronic hypoxic respiratory failure - acute component multifactorial including acute/chronic CHF, PF exacerbation, +/- infectious process. Slowly improving. 2. acute/chronic diastolic CHF in setting of chronic cor pulmonale/right-sided CHF - also slowly improving. Reports dry weight is about 180 pounds. 182.9 # today. Continue lasix 40mg IV BID. D/c after tonight's dose. K/mag supplementation. Daily weights, fluid restriction. BUN and Cr are stable. BMP in am. 3. a. fib - rates acceptable with cardizem and digoxin. Coumadin on hold due to recent hemoptysis and epistaxis. 4. supratherapeutic INR in setting of hemoptysis - resolved. 5. pulmonary HTN - severe. 6. T2DM - control acceptable with insulin drip. Pharmacy managing and their assistance appreciated. 7. pulmonary fibrosis with exacerbation - on abx, nebs, inhalers. Appreciate pulmonary consultation. Day #7 of abx therapy. cont levaquin to complete 10 days in total. cont solumedrol 40mg Q12h; change to po prednisone tomorrow PRAKASH level pending to r/o sarcoid. 8. PT, OT evals - dispo - SNF 9. leukocytosis - repeat cbc am. 10. ?sarcoid - would really need lung bx but too ill to safely perform. Family understands. Sed rate modestly worse than previous. I spoke with pulmonary regarding the ? of sarcoid. PRAKASH level ordered. cont steroids. 11. epistaxis - bactroban ointment BID to nares and nasal saline prn. resolved. Continued [facility] stay due to: multiple IV medications needed Discharge planning: nursing home facility
[2017-04-22] MEDS: ENALAPRIL MALEATE 10 MG TAB PO SCH (20:48)
[2017-04-22] MEDS: PRAVASTATIN SOD 40 MG TAB PO SCH (20:49)
[2017-04-22 23:30] LABS: MYELOPEROXIDASE AB <1.0 AI (<1.0)
[2017-04-23] VITALS (14 sets, daily range): BP systolic 114–130; BP diastolic 63–75; PULSE 78–111; TEMP 36.4–37; O2SAT 91–99
[2017-04-23] MEDS: LEVALBUTEROL 1.25MG/0.5ML NEB INH SCH ×4 (01:57→19:38)
[2017-04-23] MEDS: IPRATROPIUM BROMIDE NEB SOLN 0.02% 2.5 ML VIAL INH SCH ×4 (01:57→19:38)
[2017-04-23] MEDS: ACETAMINOPHEN 325 MG TAB PO PRN ×2 (05:21→21:23)
[2017-04-23] MEDS: INSULIN REGULAR 250 UNITS in SODIUM CHLORIDE 0.9% 250ML 250 ML IV SCH ×5 (05:32→10:07)
[2017-04-23 06:36] LABS: HEMATOCRIT 30.8 % (37-47); MEAN CELL VOLUME 85.8 fL (80-100); MEAN CORPUSCULAR HEMOGLOBIN 25.9 pg (25-34); MEAN CORPUSCULAR HGB CONC 30.2 g/dl (32-36); MEAN PLATELET VOLUME 8.8 fL (7.4-10.4); PLATELET COUNT 421 K/uL (130-400); RED BLOOD COUNT 3.59 M/uL (4.2-5.4); WHITE BLOOD COUNT 20.07 K/uL (4.8-10.8)
[2017-04-23] MEDS: BUDESONIDE 0.5 MG/2 ML VIAL (PULMICORT) INH SCH ×2 (06:57→19:38)
[2017-04-23 07:07] LABS: BUN/CREATININE RATIO 36.2 (10-20); CALCIUM 9.6 mg/dl (8.5-10.1); CREATININE 0.66 mg/dl (0.60-1.20); POTASSIUM 4.1 mmol/L (3.5-5.1)
[2017-04-23] MEDS: MAGNESIUM OXIDE 400 MG TAB PO SCH ×2 (08:01→20:22)
[2017-04-23] MEDS: BENZONATATE 100MG CAP PO SCH ×3 (08:01→20:23)
[2017-04-23] MEDS: FLUTICASONE PROPIONATE NA SPR 16 GM BTL NAE SCH (08:02)
[2017-04-23] MEDS: TIOTROPIUM BROMIDE 5 PUFF/90 MCG INH INH SCH (08:02)
[2017-04-23] MEDS: DULOXETINE HCL 60 MG CAP PO SCH (08:04)
[2017-04-23] MEDS: DILTIAZEM HCL 120 MG EXT REL CAP PO SCH (08:05)
[2017-04-23] MEDS: PANTOprazole SOD 40 MG TAB PO SCH ×2 (08:05→20:22)
[2017-04-23] MEDS: POTASSIUM CHLORIDE 10 MEQ TABCR PO SCH ×2 (08:06→20:20)
[2017-04-23] MEDS: ASPIRIN 81 MG ECTAB PO SCH (08:06)
[2017-04-23] MEDS: MUPIROCIN 2% OINT 22 GM TUBE EXT SCH ×2 (08:07→21:22)
[2017-04-23] MEDS: INSULIN ASPART 100 UNITS/ML 3 ML PEN SC SCH ×4 (08:11→21:22)
[2017-04-23] MEDS: INSULIN DETEMIR FLEXPEN/FLEX TOUCH 100 UNITS/ML 3ML SC SCH ×2 (08:11→18:31)
[2017-04-23] MEDS ORDERED: FUROSEMIDE INJ 40 MG in SYRINGE 0 ML IV ONE (08:45)
--- NOTE | 2017-04-23 10:20 | Progress Note ---
Subjective Date of Service: Apr 23, 2017. Subjective Pt evaluation today including: conversation w/ patient, physical exam, chart review, lab review, conversation w/ nurse consultant (pulmonary), review of inpatient medication list Pain: denies PO Intake: normal Voiding: no voiding problems tele stable with rate-controlled a. fib hemoptysis is scant, less than a few cc's when it does occur no epistaxis cough slowly improved no dyspnea at rest LAND is improved to a degree overall feels better just tired still willing to go to SNF for rehab Review of Systems Constitutional: No fever, No chills Respiratory: + cough, + sputum, + dyspnea on exertion, No wheezing, No dyspnea at rest Cardiac: No chest pain Abdomen: No pain, No diarrhea, No constipation Objective Vital Signs Date Time Temp Pulse Resp B/P (MAP) Pulse Ox O2 Delivery O2 Flow Rate FiO2 04/23/17 09:16 99 Room Air 4.0 Nasal Cannula 04/23/17 07:50 Nasal Cannula 4.0 04/23/17 07:24 36.5 87 20 130/74 (92) 99 Room Air 4.0 Nasal Cannula 04/23/17 07:07 82 20 97 Nasal Cannula 4.0 04/23/17 04:05 Nasal Cannula 4.0 04/23/17 04:00 36.5 111 20 127/66 (86) 92 4.0 04/23/17 01:58 99 20 99 Nasal Cannula 4.0 04/23/17 00:05 Nasal Cannula 4.0 04/23/17 00:00 36.4 90 20 114/63 (80) 91 4.0 04/22/17 21:10 36.7 84 20 111/69 (83) 92 Room Air 4.0 04/22/17 20:00 Nasal Cannula 4.0 04/22/17 19:19 82 20 94 Nasal Cannula 4.0 04/22/17 16:06 92 04/22/17 16:00 Nasal Cannula 4.0 04/22/17 15:45 36.6 92 18 106/63 (77) 94 Nasal Cannula 4.0 04/22/17 13:59 85 20 94 Nasal Cannula 4.0 04/22/17 12:00 Nasal Cannula 4.0 04/22/17 11:51 36.4 66 20 122/78 (93) 96 Nasal Cannula 4.0 Physical Exam General Appearance: no apparent distress ENT: + pertinent finding (MM dry) Neck: + JVD (to the jaw sitting upright in the chair ) Respiratory/Chest: no respiratory distress, no accessory muscle use, + rales ( bases - modestly improved) Cardiovascular: no gallop, + systolic murmur (1/6 RONEN LSB), + irregularly irregular Abdomen: normal bowel sounds, non tender, soft, no organomegaly Extremities: no pedal edema Neurologic/Psychiatric: alert, oriented x 3 Skin: no rash Laboratory Results Last 24 Hours Test 04/22/17 11:00 04/22/17 12:01 04/22/17 13:07 04/22/17 13:55 Bedside Glucose 299 mg/dl 223 mg/dl 269 mg/dl 272 mg/dl Test 04/22/17 14:58 04/22/17 15:57 04/22/17 17:05 04/22/17 18:02 Bedside Glucose 286 mg/dl 219 mg/dl 176 mg/dl 236 mg/dl Test 04/22/17 19:11 04/22/17 20:03 04/22/17 20:58 04/22/17 22:08 Bedside Glucose 233 mg/dl 213 mg/dl 227 mg/dl 181 mg/dl Test 04/22/17 23:03 04/22/17 23:59 04/23/17 01:03 04/23/17 03:01 Bedside Glucose 168 mg/dl 161 mg/dl 143 mg/dl 131 mg/dl Test 04/23/17 05:24 04/23/17 06:09 04/23/17 06:42 04/23/17 07:04 Bedside Glucose 98 mg/dl 90 mg/dl 170 mg/dl White Blood Count 20.07 K/uL Red Blood Count 3.59 M/uL Hemoglobin 9.3 g/dL Hematocrit 30.8 % Mean Corpuscular Volume 85.8 fL Mean Corpuscular Hemoglobin 25.9 pg Mean Corpuscular Hemoglobin Concent 30.2 g/dl RDW Standard Deviation 53.0 fL RDW Coefficient of Variation 17.1 % Platelet Count 421 K/uL Mean Platelet Volume 8.8 fL Nucleated RBC Absolute Count (auto) 0.04 K/uL Nucleated Red Blood Cells % 0.2 % Sodium Level 140 mmol/L Potassium Level 4.1 mmol/L Chloride Level 103 mmol/L Carbon Dioxide Level 31 mmol/L Anion Gap 6.0 mmol/L Blood Urea Nitrogen 24 mg/dl Creatinine 0.66 mg/dl Est Creatinine Clear Calc Drug Dose 69.0 ml/min Estimated GFR () 97.4 Estimated GFR (Non- 84.0 BUN/Creatinine Ratio 36.2 Random Glucose 83 mg/dl Calcium Level 9.6 mg/dl Test 04/23/17 08:02 Bedside Glucose 137 mg/dl Assessment and Plan 77yo female with: 1. acute/chronic hypoxic respiratory failure - acute component multifactorial including acute/chronic CHF, PF exacerbation, +/- infectious process. again improving slowly. 2. acute/chronic diastolic CHF in setting of chronic cor pulmonale/right-sided CHF - continues to improve; approaching euvolemia. Reports dry weight is about 180 pounds. 182 # today. 1 more dose of IV lasix this am; then likely resume PO lasix 40mg daily tomorrow. K/mag supplementation. Daily weights, fluid restriction. BUN and Cr are stable once again. BMP in am. 3. a. fib - rates acceptable with cardizem and digoxin. Resume coumadin cautiously with daily INR. 4. supratherapeutic INR in setting of hemoptysis - resolved. 5. pulmonary HTN - severe. 6. T2DM - control acceptable with insulin drip. Pharmacy managing and their assistance appreciated. Can likely transition back to all SC insulin as the day goes on. 7. pulmonary fibrosis with exacerbation - on abx, nebs, inhalers, steroids. Appreciate pulmonary consultation. Day #8 of abx therapy. cont levaquin to complete 10 days in total. d/c IV steroids; change to PO prednisone 40mg daily and Dr. Deluna recommends sending her out of hospital on the 40mg daily and keeping her on it for several weeks/months to see if this helps her pulmonary fibrosis. PRAKASH level neg. JACKIE + but titer pending. pulmonary fibrosis could be autoimmune - await JACKIE titer. 8. PT, OT evals - dispo - SNF - on Thursday04/24/17 perhaps? 9. leukocytosis - suspect 2nd to steroids - no fever, etc. Follow. 10. ?sarcoid - PRAKASH level normal; doesn't rule it out, but unlikely for her to develop such a condition this late in life but not out of the realm of possibility. Both daughters have sarcoid. Would really need lung bx but too ill to undergo such at this time. 11. epistaxis - bactroban ointment BID to nares and nasal saline prn. resolved. no recurrency. resume coumadin cautiously. progressing to SNF tomorrow?? Continued [facility] stay due to: multiple IV medications needed Discharge planning: intermediate facility
--- NOTE | 2017-04-23 10:25 | PULMONARY PROGRESS NOTE ---
DATE: 04/23/2017 TIME: 10:05 a.m. SUBJECTIVE: The patient is feeling better. She is less short of breath. She states she is no longer getting the panic episodes that she was having previously. There has been no hemoptysis. She denies chest pains. OBJECTIVE: GENERAL: The patient appears comfortable. She is sitting in a chair today. VITAL SIGNS: Temperature is 36.5. Yesterday's output was 2100 mL with a net balance of -964. Her weight today is 82.7 kilograms on a standing scale. The heart rate was 87 per minute. The rhythm was irregular. Blood pressure is 130/74. Oxygen saturation was 99% on 4 liters. CHEST: Auscultation of the lung de león reveals rales predominantly in the mid and lower lung field. They have diminished compared with a few days ago. Her respiratory rate is 20 breaths per minute and not labored. EXTREMITIES: Showed no edema, cyanosis or clubbing. LABORATORY DATA: CBC today showed a white count back up to 20.07. Hemoglobin was 9.3. Platelets 421,000. Electrolytes show sodium 140, potassium 4.1, chloride 103, bicarbonate 31. BUN was 24 with a creatinine of 0.66. The BUN has been rising slightly. Blood sugar this morning was 137. The JACKIE screen was positive. The actual titer is pending. The ANCA was negative. The angiotensin converting enzyme level was low at 7. IMPRESSIONS: 1. Interstitial lung disease. 2. Mediastinal adenopathy. 3. Hemoptysis -- resolved. 4. Pulmonary hypertension. 5. Fluid overload -- improved. COMMENTS AND RECOMMENDATIONS: The case was discussed with Dr. Kuhn. I believe she can be changed to prednisone rather than methylprednisolone. It appears that 40 mg daily would be adequate. We will repeat a chest x-ray for tomorrow. shelter care is being sought for the patient. We discussed the reinitiation of Coumadin with trying to keep the INR level at approximately 2.0-2.2 with thereabouts.
[2017-04-23] MEDS: LEVOFLOXACIN 750 MG TAB PO SCH (10:35)
--- NOTE | 2017-04-23 10:53 | Pharmacy Progress Note ---
Glycemic Control Progress Note Date of Service Apr 23, 2017. Scope Glycemic Pharmacist consulted for glycemic control to write orders per [facility] inpatient glycemic control protocol. Objective Accuchecks BSG (last 24hrs): Test 04/22/17 11:00 04/22/17 12:01 04/22/17 13:07 04/22/17 13:55 Bedside Glucose 299 mg/dl (70-90) 223 mg/dl (70-90) 269 mg/dl (70-90) 272 mg/dl (70-90) Test 04/22/17 14:58 04/22/17 15:57 04/22/17 17:05 04/22/17 18:02 Bedside Glucose 286 mg/dl (70-90) 219 mg/dl (70-90) 176 mg/dl (70-90) 236 mg/dl (70-90) Test 04/22/17 19:11 04/22/17 20:03 04/22/17 20:58 04/22/17 22:08 Bedside Glucose 233 mg/dl (70-90) 213 mg/dl (70-90) 227 mg/dl (70-90) 181 mg/dl (70-90) Test 04/22/17 23:03 04/22/17 23:59 04/23/17 01:03 04/23/17 03:01 Bedside Glucose 168 mg/dl (70-90) 161 mg/dl (70-90) 143 mg/dl (70-90) 131 mg/dl (70-90) Test 04/23/17 05:24 04/23/17 06:09 04/23/17 06:42 04/23/17 07:04 Bedside Glucose 98 mg/dl (70-90) 90 mg/dl (70-90) 170 mg/dl (70-90) Random Glucose 83 mg/dl (70-99) Test 04/23/17 08:02 Bedside Glucose 137 mg/dl (70-90) HbA1c: Test 04/17/17 08:42 Hemoglobin A1c 8.5 % (4.5-5.6) H Recent Pertinent Medications The patient is currently receiving: * Basal insulin: Levemir 22 units every 12 hours (while on insulin drip) * IV Regular insulin drip: Goal Range: Low 120 mg/dL - High 200 mg/dL --Running around 1.4-5 units/hr over the past 12 hours --Pt did have a dose of IV Dextrose per drip protocol early this morning for BSG 80mg/do * Prandial insulin: Per carb ratio of 1 unit per 5-16 grams CHO consumed per drip calculator Outpatient Anti-Diabetic Meds Levemir 40 units HS Metformin 1g PO BID Glipizide - 5mg PO BID Assessment & Plan ASSESSMENT: * See progress note from 04/16/17 for more background info, in short: * Pt receiving SQ basal bolus insulin regimen for hyperglycemia secondary to baseline DM (outpatient regimen on hold),stress/infection, IV steroids, transitioning to PO today. Pt to remain on Prednisone 40mg PO Daily for weeks per pulmonary for pulmonary fibrosis. Patient to complete 10 days of PO Levaquin. * Will transition pt off of IV insulin drip to basal bolus insulin regimen and give daily NPH dose with prednisone to prevent steroid induced hyperglycemia. Verified with Dr Kuhn to start NPH, pt to go to SNF at discharge. * Dose of NPH for Prednisone 40mg = 0.4units/kg PLAN FOR INPATIENT GLYCEMIC CONTROL: * Discontinue IV insulin infusion today at 1100 (pt has been on Levemir x 48 hours while on drip) * Oral Agents * Continue to hold outpatient oral diabetes medications. * Basal insulin * CHANGE Levemir to 40 units SQ HS starting tonight * NPH 30 units SQ daily with prednisone * Bolus insulin * NovoLog per scale ACHS or Q6hrs while NPO and at 0000 and 0400 overnight * Goal Range: Low 110 mg/dL - High 140 mg/dL * Correction Factor: 15 mg/dL/unit * Nutritional / Prandial insulin per carb ratio of 1 unit per 5 grams CHO consumed RECOMMENDATIONS FOR DISCHARGE: * Patient to be discharged on Prednisone 40mg PO daily - recommend adding NPH 30 units SQ daily with prednisone dose (to prevent steroid induced hyperglycemia ) * Continue Levemir 40 units SQ HS * Continue Metformin 1 gram PO BID * Continue Glipizide 5mg po BID * Please note that the plan above was derived based on current level of insulin resistance and hospital stress. These recommendations are appropriate for inpatient admission only. Plan of care upon discharge will need to be reassessed to avoid potential outpatient hypo/hyperglycemia. Thank you.
[2017-04-23] MEDS ORDERED: GLIP5TAB11 PO (14:55)
[2017-04-23] MEDS: WARFARIN SOD 1 MG TAB PO SCH (16:09)
[2017-04-23] MEDS: DIGOXIN 0.125 MG TAB PO SCH (17:11)
--- NOTE | 2017-04-23 20:06 | Progress Note ---
Progress Note Date of Service Apr 23, 2017. Progress Note spoke with patient, told her I had tried calling her daughter yesterday and today to no avail. patient stated her daughter's phone number is: [phone] phone # listed in chart is thus wrong Gallo Kuhn MD
[2017-04-23] MEDS: PRAVASTATIN SOD 40 MG TAB PO SCH (20:21)
[2017-04-23] MEDS: ENALAPRIL MALEATE 10 MG TAB PO SCH (20:24)
[2017-04-23] MEDS ORDERED: INSULIN DETEMIR FLEXPEN/FLEX TOUCH 100 UNITS/ML 3ML SC SCH (21:00)
[2017-04-24] VITALS (8 sets, daily range): BP systolic 119–138; BP diastolic 67–82; PULSE 66–95; TEMP 36.4–37; O2SAT 91–99
[2017-04-24] MEDS: INSULIN ASPART 100 UNITS/ML 3 ML PEN SC SCH ×6 (00:06→22:22)
[2017-04-24] MEDS: IPRATROPIUM BROMIDE NEB SOLN 0.02% 2.5 ML VIAL INH SCH ×4 (02:01→19:20)
[2017-04-24] MEDS: LEVALBUTEROL 1.25MG/0.5ML NEB INH SCH ×4 (02:01→19:20)
[2017-04-24 05:41] LABS: HEMATOCRIT 32.6 % (37-47); MEAN CELL VOLUME 85.1 fL (80-100); MEAN CORPUSCULAR HEMOGLOBIN 25.1 pg (25-34); MEAN CORPUSCULAR HGB CONC 29.4 g/dl (32-36); MEAN PLATELET VOLUME 8.9 fL (7.4-10.4); PLATELET COUNT 449 K/uL (130-400); RED BLOOD COUNT 3.83 M/uL (4.2-5.4); WHITE BLOOD COUNT 20.49 K/uL (4.8-10.8)
[2017-04-24 06:13] LABS: INR 1.1 (0.9-1.1); PROTHROMBIN TIME (PATIENT) 12.2 SECONDS (9.0-12.0)
[2017-04-24 06:14] LABS: BUN/CREATININE RATIO 34.5 (10-20); CALCIUM 9.8 mg/dl (8.5-10.1); CREATININE 0.73 mg/dl (0.60-1.20); MAGNESIUM 1.8 mg/dl (1.8-2.4); POTASSIUM 3.9 mmol/L (3.5-5.1)
[2017-04-24] MEDS: ACETAMINOPHEN 325 MG TAB PO PRN (07:53)
[2017-04-24] MEDS: BUDESONIDE 0.5 MG/2 ML VIAL (PULMICORT) INH SCH ×2 (08:00→19:20)
[2017-04-24] MEDS: DULOXETINE HCL 60 MG CAP PO SCH (08:18)
[2017-04-24] MEDS: ASPIRIN 81 MG ECTAB PO SCH (08:18)
[2017-04-24] MEDS: DILTIAZEM HCL 120 MG EXT REL CAP PO SCH (08:19)
[2017-04-24] MEDS: PANTOprazole SOD 40 MG TAB PO SCH ×2 (08:19→22:17)
[2017-04-24] MEDS: MAGNESIUM OXIDE 400 MG TAB PO SCH ×2 (08:19→22:13)
[2017-04-24] MEDS: BENZONATATE 100MG CAP PO SCH ×3 (08:20→22:17)
[2017-04-24] MEDS: POTASSIUM CHLORIDE 10 MEQ TABCR PO SCH ×2 (08:20→22:15)
[2017-04-24] MEDS: TIOTROPIUM BROMIDE 5 PUFF/90 MCG INH INH SCH (08:21)
[2017-04-24] MEDS: FLUTICASONE PROPIONATE NA SPR 16 GM BTL NAE SCH (08:21)
[2017-04-24] MEDS: MUPIROCIN 2% OINT 22 GM TUBE EXT SCH ×2 (08:22→22:18)
--- NOTE | 2017-04-24 08:24 | DIAGNOSTIC IMAGING REPORT ---
CHEST ONE VIEW PORTABLE CLINICAL HISTORY: Follow up interstitial lung disease. COMPARISON STUDY: Chest CT April 16, 2017 and chest radiograph April 19, 2017. FINDINGS: Lung volumes are within normal limits. No pneumothorax or pleural effusions identified. Cardiomegaly is unchanged. Mixed interstitial and alveolar opacities within both lungs has slightly improved. No cavitation is identified. Bilateral hilar enlargement is unchanged. IMPRESSION: Persistent, but slightly improved, mixed interstitial and alveolar opacities within the lungs. The findings suggest pulmonary edema or multifocal pneumonia. Electronically signed by: Miguel Gunter M.D. 04/24/2017 8:23 AM Dictated Date/Time: 04/24/2017 8:19 AM
[2017-04-24] MEDS: HumuLIN-N 10 ML VIAL SC SCH (08:28)
--- NOTE | 2017-04-24 11:22 | PROGRESS NOTE ---
DATE: 04/24/2017 PROBLEM LIST: Includes: 1. Interstitial lung disease. 2. Mediastinal adenopathy. 3. Hemoptysis which has resolved. 4. Pulmonary hypertension. 5. Fluid overload which is improving. SUBJECTIVE: The patient reports that she feels pretty well. She states that when she is sitting at rest, she has no breathing problems, whatsoever. States that when she gets up to move around, she still gets dyspneic. She states that she is not really having any cough or congestion. She is not having any wheezing. No chest heaviness or tightness. She states that overall she is feeling much better. She is using her oxygen which she is on routinely. She feels that this is helpful. She is using her meds and nebulizer as directed. She feels that these are helpful as well. She does have pending transfer to nursing home facility in the [facility], she is okay with this. Denies any other complaints. No GI symptoms. No nausea or vomiting. No indigestion or heartburn. No difficulty with bowels. She is not having any difficulty with swelling in her extremities. OBJECTIVE: GENERAL: The patient is a 77-year-old female sitting at bedside, in no acute distress. She is not in any respiratory distress. No dyspnea with talking. She is able to complete sentences without difficulty. She is alert and oriented x3. Mood is good. Affect is good. VITAL SIGNS: Temp 36.9, pulse 95, respirations 20, blood pressure is 138/82, pulse ox 91-99% on 4 liters. HEENT: Normocephalic, atraumatic. Pupils equal, round and reactive to light and accommodation. Extraocular movements are intact. Rentz, moist gingival and buccal mucosa. NECK: Supple, short, thick. No mass. No adenopathy. No bruit. CHEST: The patient does have bilateral lower lobe rales, although they are difficult to hear, they are very faint. No wheeze or rhonchi noted. CARDIOVASCULAR: Irregularly irregular. No murmurs, gallops or rubs noted. ABDOMEN: Bowel sounds are present. Abdomen soft, nontender. No guarding, rigidity or organomegaly. EXTREMITIES: No erythema, no edema, no cyanosis or clubbing. NEUROLOGIC: Cranial nerves II-XII are intact. No focal deficit noted. LABORATORY DATA: Shows white count of 20,000, H&H 9.6 and 32.6, platelet count 449,000. INR 1.1. BUN 25, creatinine 0.73. Chest x-ray, the patient still has some interstitial changes within both lungs. When compared to chest x-ray of 04/19/2017, there has been some clearing, although interstitial change is still present. IMPRESSION: This is a 77-year-old female with known interstitial lung disease and mediastinal adenopathy, who presented with increased shortness of breath and hemoptysis. Hemoptysis has resolved. After reviewing Dr. Deluna's note from yesterday, reinitiation of Coumadin was recommended, that has been started. The patient is showing slow improvement. Imaging is showing some improvement as well. The patient does have pending room at [place] and is awaiting medical clearance. At this point, from a pulmonary standpoint, she is on oral steroid in the form of prednisone 40 mg daily. At this point, from a pulmonary standpoint, she is stable to be discharged to [place]. Would recommend to continue prednisone with a very slow taper. She does have an appointment with Dr. Patterson on 04/28/2017, at which point we can discuss how to taper. Would also recommend that she continue aggressive pulmonary toilet in the form of her nebulizer and her inhalers. She does have an appointment on 04/28/[address] Patterson at 12:30 at [facility]. At this point, if she is discharged today or over the weekend, we will keep this appointment. NATASHA
--- NOTE | 2017-04-24 12:02 | Pharmacy Progress Note ---
Glycemic Control Progress Note Date of Service Apr 24, 2017. Scope Glycemic Pharmacist consulted for glycemic control to write orders per [facility] inpatient glycemic control protocol. Objective Accuchecks BSG (last 24hrs): Test 04/23/17 15:53 04/23/17 20:07 04/24/17 00:00 04/24/17 04:04 Bedside Glucose 321 mg/dl (70-90) 328 mg/dl (70-90) 158 mg/dl (70-90) 83 mg/dl (70-90) Test 04/24/17 05:09 04/24/17 05:41 04/24/17 07:30 04/24/17 11:19 Random Glucose 80 mg/dl (70-99) Bedside Glucose 99 mg/dl (70-90) 122 mg/dl (70-90) 116 mg/dl (70-90) HbA1c: Test 04/17/17 08:42 Hemoglobin A1c 8.5 % (4.5-5.6) H Recent Pertinent Medications The patient is currently receiving: * Oral Agents - ON HOLD * Basal insulin * Levemir to 40 units SQ HS * NPH 30 units SQ daily with prednisone * Bolus insulin * NovoLog per scale ACHS or Q6hrs while NPO and at 0000 and 0400 overnight * Goal Range: Low 110 mg/dL - High 140 mg/dL * Correction Factor: 15 mg/dL/unit * Nutritional / Prandial insulin per carb ratio of 1 unit per 5 grams CHO consumed Outpatient Anti-Diabetic Meds Levemir 40 units HS Metformin 1g PO BID Glipizide 5mg PO BID Assessment & Plan ASSESSMENT: * See progress note from 04/16/17 for more background info, in short: * Pt receiving SQ basal bolus insulin regimen for hyperglycemia secondary to baseline DM (outpatient regimen on hold),stress/infection, IV steroids, transitioned to PO yesterday. Pt to remain on Prednisone 40mg PO Daily for weeks per pulmonary for pulmonary fibrosis. Patient to complete 10 days of PO Levaquin. * Blood sugars did escalate into the 300s yesterday when coming off of insulin drip and starting PO prednisone. This was corrected with novolog and now patient 's BSGs at goal with NPH on board with Prednisone dose this morning. No changes needed at this time to regimen * Dose of NPH for Prednisone 40mg = 0.4units/kg * Pt to go to [facility] upon discharge, and have very slow taper of Prednisone after seeing Dr Patterson on 04/28/17. PLAN FOR INPATIENT GLYCEMIC CONTROL: * Oral Agents * Continue to hold outpatient oral diabetes medications. * Basal insulin * Levemir to 40 units SQ HS * NPH 30 units SQ daily with prednisone * Bolus insulin * NovoLog per scale ACHS or Q6hrs while NPO and at 0000 and 0400 overnight * Goal Range: Low 110 mg/dL - High 140 mg/dL * Correction Factor: 15 mg/dL/unit * Nutritional / Prandial insulin per carb ratio of 1 unit per 5 grams CHO consumed RECOMMENDATIONS FOR DISCHARGE: * Patient to be discharged on Prednisone 40mg PO daily - recommend continuing NPH 30 units SQ daily with prednisone dose (to prevent steroid induced hyperglycemia) * Taper NPH as Prednisone tapers as follows: * Prednisone 30mg --> NPH 25 units * Prednisone 20mg --> NPH 15 units * Prednisone 10mg --> NPH 10 units * Prednisone 5mg --> NPH 5 units * Continue Levemir 40 units SQ HS * Continue Metformin 1 gram PO BID * Continue Glipizide 5mg po BID * Please note that the plan above was derived based on current level of insulin resistance and hospital stress. These recommendations are appropriate for inpatient admission only. Plan of care upon discharge will need to be reassessed to avoid potential outpatient hypo/hyperglycemia. Thank you.
[2017-04-24] MEDS: LEVOFLOXACIN 750 MG TAB PO SCH (12:21)
[2017-04-24] MEDS: DIGOXIN 0.125 MG TAB PO SCH (17:46)
[2017-04-24] MEDS: WARFARIN SOD 1 MG TAB PO SCH (17:46)
--- NOTE | 2017-04-24 18:49 | Progress Note ---
Subjective Date of Service: Apr 24, 2017. Subjective pt remains mildly short of breath but overall feels improved after diuresis Review of Systems Constitutional: No fever, No chills Respiratory: No cough, No shortness of breath, No dyspnea on exertion Cardiac: No chest pain, No edema Abdomen: No pain, No nausea, No vomiting, No diarrhea Female : No dysuria, No urinary frequency, No hematuria Psychiatric: No depression symptoms, No anhedonism Objective Vital Signs Date Time Temp Pulse Resp B/P (MAP) Pulse Ox O2 Delivery O2 Flow Rate FiO2 04/24/17 07:20 36.9 95 20 138/82 (100) 91 Nasal Cannula 4.0 04/24/17 04:00 Nasal Cannula 4.0 04/24/17 03:43 36.7 66 16 119/67 (84) 99 Nasal Cannula 4.0 04/24/17 02:01 88 20 96 Nasal Cannula 4.0 04/24/17 00:00 Nasal Cannula 4.0 04/23/17 23:23 36.5 90 18 126/75 (92) 96 Nasal Cannula 4.0 04/23/17 20:00 Nasal Cannula 4.0 04/23/17 19:43 36.9 79 18 117/68 (84) 96 Nasal Cannula 4.0 04/23/17 19:38 82 18 95 Nasal Cannula 4.0 04/23/17 17:11 88 04/23/17 16:00 Nasal Cannula 4.0 04/23/17 15:42 36.6 22 122/65 (84) 97 Nasal Cannula 4.0 04/23/17 14:24 97 Nasal Cannula 4.0 04/23/17 14:20 36.8 81 20 116/67 (83) 97 Nasal Cannula 4.0 04/23/17 14:18 78 20 94 Nasal Cannula 4.0 04/23/17 12:00 Nasal Cannula 4.0 04/23/17 11:08 37.0 97 24 118/63 (81) 97 Room Air 4.0 Nasal Cannula 04/23/17 09:16 99 Room Air 4.0 Nasal Cannula Physical Exam General Appearance: WD/WN, + mild distress Eyes: PERRL, EOMI Neck: supple, no JVD Respiratory/Chest: + respiratory distress, + decreased breath sounds, + accessory muscle use, + rales Cardiovascular: regular rate, rhythm, no murmur Abdomen: normal bowel sounds, non tender, soft Extremities: + pedal edema, + swelling Laboratory Results Last 24 Hours Test 04/23/17 09:00 04/23/17 10:02 04/23/17 11:28 04/23/17 15:53 Bedside Glucose 240 mg/dl 293 mg/dl 257 mg/dl 321 mg/dl Test 04/23/17 20:07 04/24/17 00:00 04/24/17 04:03 04/24/17 04:04 Bedside Glucose 328 mg/dl 158 mg/dl 69 mg/dl 83 mg/dl Test 04/24/17 05:09 04/24/17 05:41 04/24/17 07:30 White Blood Count 20.49 K/uL Red Blood Count 3.83 M/uL Hemoglobin 9.6 g/dL Hematocrit 32.6 % Mean Corpuscular Volume 85.1 fL Mean Corpuscular Hemoglobin 25.1 pg Mean Corpuscular Hemoglobin Concent 29.4 g/dl RDW Standard Deviation 52.1 fL RDW Coefficient of Variation 17.1 % Platelet Count 449 K/uL Mean Platelet Volume 8.9 fL Prothrombin Time 12.2 SECONDS Prothromb Time International Ratio 1.1 Sodium Level 140 mmol/L Potassium Level 3.9 mmol/L Chloride Level 101 mmol/L Carbon Dioxide Level 32 mmol/L Anion Gap 7.0 mmol/L Blood Urea Nitrogen 25 mg/dl Creatinine 0.73 mg/dl Est Creatinine Clear Calc Drug Dose 62.3 ml/min Estimated GFR () 90.8 Estimated GFR (Non- 78.3 BUN/Creatinine Ratio 34.5 Random Glucose 80 mg/dl Calcium Level 9.8 mg/dl Magnesium Level 1.8 mg/dl Bedside Glucose 99 mg/dl 122 mg/dl Assessment and Plan 77 y/o female with acute on chronic hypoxic respiratory failure and lung infiltrates seen on CXR, not clear if infectious or progressive fibrotic changes , not helped with antibiotics and steroids concern for inflamatory lung condition or fibrosis, initial symptoms were from acute on chronic diastolic heart failure PMHx of COPD, Interstitial Lung Disease, Pulmonary HTN, Diastolic CHF, Persistent Atrial Fibrillation, and T2DM who presents as a direct admission from [facility] for COPD exacerbation and possible pneumonia. possibility of gram negative pneumonia complete 10 day course of levaquin cute on chronic hypoxic respiratory failure, will continue steroids per pulmonary med for long taper - Xopenex/Atrovent - Spiriva 1 puff daily, has baseline crackles and likely always will acute on chronic diastolic heart failure and pulmonary htn, aggressive diuresis during her stay target dry weight to 80 kg or so- On chronic 4 L Atrial Fibrillation with RVR: improved will continue- Digoxin 0.125 mg daily, Diltiazem XL 180 mg daily, initilly coumadin coagulopathy, now low after she was given vitamin k 2.5 mg on 04/17- T2DM: UNCONTROLLED, insulin gtt, glycemic assistance HTN:- Enalapril 10 mg daily daughters phone number is Continued [facility] stay due to: multiple IV medications needed Discharge planning: [facility] facility
[2017-04-24] MEDS: PRAVASTATIN SOD 40 MG TAB PO SCH (22:15)
[2017-04-24] MEDS: ENALAPRIL MALEATE 10 MG TAB PO SCH (22:16)
[2017-04-24] MEDS: INSULIN DETEMIR FLEXPEN/FLEX TOUCH 100 UNITS/ML 3ML SC SCH (22:23)
[2017-04-25 00:09] VITALS: BP 136/79; PULSE 83; TEMP 36.5; O2SAT 99
[2017-04-25 03:19] VITALS: PULSE 78; O2SAT 96
[2017-04-25] MEDS: IPRATROPIUM BROMIDE NEB SOLN 0.02% 2.5 ML VIAL INH SCH ×2 (03:19→07:17)
[2017-04-25] MEDS: LEVALBUTEROL 1.25MG/0.5ML NEB INH SCH ×2 (03:19→07:17)
[2017-04-25 04:00] VITALS: BP 152/69; PULSE 91; TEMP 36.5; O2SAT 97
[2017-04-25 07:17] VITALS: PULSE 80; O2SAT 95
[2017-04-25] MEDS: BUDESONIDE 0.5 MG/2 ML VIAL (PULMICORT) INH SCH (07:17)
[2017-04-25 07:25] VITALS: BP 138/74; PULSE 91; TEMP 37; O2SAT 97
[2017-04-25 07:42] LABS: INR 1.1 (0.9-1.1); PROTHROMBIN TIME (PATIENT) 11.8 SECONDS (9.0-12.0)
[2017-04-25] MEDS: FLUTICASONE PROPIONATE NA SPR 16 GM BTL NAE SCH (08:03)
[2017-04-25] MEDS: MUPIROCIN 2% OINT 22 GM TUBE EXT SCH (08:03)
[2017-04-25] MEDS: MAGNESIUM OXIDE 400 MG TAB PO SCH (08:04)
[2017-04-25] MEDS: BENZONATATE 100MG CAP PO SCH (08:04)
[2017-04-25] MEDS: DILTIAZEM HCL 120 MG EXT REL CAP PO SCH (08:05)
[2017-04-25] MEDS: ASPIRIN 81 MG ECTAB PO SCH (08:06)
[2017-04-25] MEDS: PANTOprazole SOD 40 MG TAB PO SCH (08:06)
[2017-04-25 08:07] LABS: CREATININE 0.67 mg/dl (0.60-1.20)
[2017-04-25] MEDS: POTASSIUM CHLORIDE 10 MEQ TABCR PO SCH (08:07)
[2017-04-25] MEDS: DULOXETINE HCL 60 MG CAP PO SCH (08:08)
[2017-04-25] MEDS: TIOTROPIUM BROMIDE 5 PUFF/90 MCG INH INH SCH (08:42)
[2017-04-25] MEDS: HumuLIN-N 10 ML VIAL SC SCH (08:44)
[2017-04-25] MEDS: INSULIN ASPART 100 UNITS/ML 3 ML PEN SC SCH ×2 (08:46→12:03)
[2017-04-25] MEDS ORDERED: ALPR0.25 PO (09:09)
[2017-04-25] MEDS ORDERED: NVLGIPEN SC (09:09)
[2017-04-25] MEDS ORDERED: TZCSR120 PO (09:09)
[2017-04-25] MEDS ORDERED: PRD20 PO (09:09)
[2017-04-25] MEDS ORDERED: PLMINS INH (09:09)
[2017-04-25] MEDS ORDERED: INSHNI SC (09:10)
--- NOTE | 2017-04-25 09:13 | Discharge Instructions ---
Discharge Instructions Date of Service Apr 25, 2017. Admission Reason for Admission: Copd Exacerbation, Hypoxia Discharge Discharge Diagnosis / Problem: acute on chronic diastolic heart failure Discharge Goals Goal(s): Diagnostic testing, Therapeutic intervention Activity Recommendations Activity Level: Assistance Required Therapies: Physical Therapy, Occupational Therapy . 77 y/o female with acute on chronic hypoxic respiratory failure and lung infiltrates seen on CXR, not clear if infectious or progressive fibrotic changes , not helped with antibiotics and steroids concern for inflamatory lung condition or fibrosis, initial symptoms were from acute on chronic diastolic heart failure PMHx of COPD, Interstitial Lung Disease, Pulmonary HTN, Diastolic CHF, Persistent Atrial Fibrillation, and T2DM who presents as a direct admission from [facility] for COPD exacerbation and possible pneumonia. possibility of gram negative pneumonia complete 10 day course of levaquin cute on chronic hypoxic respiratory failure, will continue steroids per pulmonary med for long taper - Xopenex/Atrovent - Spiriva 1 puff daily, has baseline crackles and likely always will acute on chronic diastolic heart failure and pulmonary htn, aggressive diuresis during her stay target dry weight to 80 kg or so- On chronic 4 L Atrial Fibrillation with RVR: improved will continue- Digoxin 0.125 mg daily, Diltiazem XL 180 mg daily, initilly coumadin coagulopathy, now low after she was given vitamin k 2.5 mg on 04/17- T2DM: UNCONTROLLED, insulin gtt, glycemic assistance HTN:- Enalapril 10 mg daily daughters phone number is [phone] Additional Information Patient informed of condition: Yes Advance Directives: Yes DNR: No Level of Care: Skilled Communicable Disease: No Prognosis: Stable Ambrocio Catheter: No Current Hospital Diet Patient's current hospital diet: AHA Diet (Heart Healthy), Diabetes Type 2 Diet Discharge Diet Recommended Diet: Diabetes Type 2 Diet Pending Studies Studies pending at discharge: no Laboratory Results Hemoglobin A1c Test 04/17/17 08:42 Range/Units Estimated Average Glucose 197 mg/dl Hemoglobin A1c 8.5 H 4.5-5.6 % Medical Emergencies . Who to Call and When: Medical Emergencies: If at any time you feel your situation is an emergency, please call 911 immediately. . Non-Emergent Contact Non-Emergency issues call your: Primary Care Provider, [employer] Professor Call Non-Emergent contact if: temperature is above 101, your pain is unusual for you . . "Provider Documentation" section prepared by Zev Garvin. . Core Measure Problem Core Measures: None
--- NOTE | 2017-04-25 09:40 | Discharge Instructions ---
Discharge Instructions Date of Service Apr 25, 2017. Admission Reason for Admission: Copd Exacerbation, Hypoxia Discharge Discharge Diagnosis / Problem: acute on chronic diastolic heart failure and cor pulmonale Discharge Goals Goal(s): Diagnostic testing, Therapeutic intervention Activity Recommendations Activity Limitations: as noted below Lifting Limitations: gradually increase as tolerated . Instructions / Follow-Up Instructions / Follow-Up Call your Primary Care doctor if any of the following symptoms or problems start or get worse: * Shortness of breath or difficulty breathing * Wake up at night short of breath * Chest pain * Cough * Swelling of your hands, feet, or legs * More fatigued or tired with your normal activity * Palpitations - sudden fast heart beats WEIGHT * Weigh yourself every morning after using the bathroom. * Use the same scale. * Wear the same amount of clothing. * Write your weight down on a chart. * Call your Primary Care doctor if you gain more than 2-3 pounds in 1-2 days. MEDICATIONS * Use this discharge instruction sheet for medication instructions. * Take your medications at the time your doctor ordered. * Do not skip a dose of your medicines. * If you miss a dose of medicine, take it as soon as possible, but DO NOT DOUBLE A DOSE. * Read your medicine information when you get home. * Know all of the side effects of your medicine. If in doubt, ask your pharmacist * Call your Primary Care doctor's office if you have any side effects. * Be sure all of your doctors know what medicine and herbs you take (including cold, flu, and herbal medicine). Take the following with you to your follow-up doctor appointments: * Weight Chart * Medication List * List of questions Do not drink excessive alcohol, beer or wine. Current Hospital Diet Patient's current hospital diet: AHA Diet (Heart Healthy), Diabetes Type 2 Diet Discharge Diet Recommended Diet: Low Sodium Diet (2gm Na), Diabetes Type 2 Diet Pending Studies Studies pending at discharge: no Laboratory Results Hemoglobin A1c Test 04/17/17 08:42 Range/Units Estimated Average Glucose 197 mg/dl Hemoglobin A1c 8.5 H 4.5-5.6 % Medical Emergencies . Who to Call and When: Call 911 or go to the Emergency Room if: * If at any time you feel your situation is an emergency * You have tightness or pain in your chest that does not go away with rest or Nitroglycerin * You are very short of breath even with rest . Non-Emergent Contact Non-Emergency issues call your: [employer] Brazer Call Non-Emergent contact if: temperature is above 101, your pain is unusual for you . . "Provider Documentation" section prepared by Zev Garvin. . VTE Core Measure Inpt VTE Proph given/why not?: Warfarin (Coumadin), T.E.DLyndon Stockings, SCD's
[2017-04-25] MEDS: LEVOFLOXACIN 750 MG TAB PO SCH (10:30)
[2017-04-25 10:35] VITALS: BP 138/74; PULSE 91; TEMP 37; O2SAT 97
--- NOTE | 2017-04-25 17:28 | Discharge Summary ---
Discharge Summary Date of Service Apr 25, 2017. Discharge Summary Admission Date: Apr 16, 2017 at 14:17 Discharge Date: Apr 25, 2017 Discharge Disposition: care home facility Principal Diagnosis: acute on chronic diastolic & right heart failure, likely pulmonary fibrosis Immunizations: Have You Had Influenza Vaccine: Unknown History of Tetanus Vaccine?: Unknown History of Pneumococcal: Unknown History of Hepatitis B Vaccine: Unknown Medication Reconciliation New Medications: Budesonide (Inhalation) (Pulmicort Respules 0.5MG/2ML) 0.5 Mg/2 Ml Payton 0.5 MG INH BIDR, #1 INHALER Diltiazem HCl (Taztia Xt) 120 Mg Capcr 240 MG PO QAM, #60 DOSE Insulin Aspart (Novolog Flexpen) 100 Units/Ml Inj 0 UNITS SC ACHS, #1 PEN Insulin Human NPH (Humulin N) 100 Units/Ml Susp 30 UNITS SC DAILY, #1 VIAL Prednisone (Prednisone) 20 Mg Tab 40 MG PO QAM, #60 TAB 40 mg daily until seen by pulmonary med, should see in one week Continued Medications: Albuterol Sulfate (Proair Respiclick) 108 Mcg/Act Aer 2 PUFFS INH Q6H PRN for SOB/Wheezing Alprazolam (Xanax) 0.25 Mg Tab 0.25 TAB PO TID PRN for Anxiety, #30 TAB (This prescription has been renewed) Aspirin (Aspirin Ec) 81 Mg Tab 81 MG PO DAILY Digoxin (Digoxin) 0.125 Mg Tab 0.125 MG PO DAILY Duloxetine HCl (Cymbalta) 30 Mg Cap 60 MG PO DAILY, CAP 5 Refills Fluticasone Prop/Salmeterol (Advair Diskus 250-50 Mcg/Dose) 14 Puff/1 Inhaler Aerp 1 PUFF INH BID Fluticasone Propionate (Nasal) (Flonase Allergy Relief) 50 Mcg/Act Spr 2 SPRAYS JAMIN DAILY Furosemide (Lasix) 40 Mg Tab 40 MG PO DAILY, TAB Furosemide (Lasix) 20 Mg Tab 20 MG PO DAILY PRN for weight gain, TAB Glipizide (Glucotrol) 5 Mg Tab 1 TAB PO BID for 30 Days, #60 TAB 3 Refills Insulin Detemir (Levemir) 100 Units/Ml Inj 40 UNITS SC HS Ipratropium-Albuterol (Combivent Respimat) 1 Aer Aer 1 PUFFS INH QID, INH Magnesium Oxide (Magnesium-Oxide) 400 Mg Tab 400 MG PO DAILY Potassium Chloride (Klor-Con M20) 20 Meq Tabcr 10 MEQ PO DAILY Pravastatin Sodium (Pravastatin Sodium) 80 Mg Tab 1 TAB PO DAILY for 30 Days, #30 TAB 5 Refills Quinapril Hcl (Accupril) 10 Mg Tab 10 MG PO HS, TAB 0 Refills Tiotropium Harvey (Spiriva Respimat) 2.5 Mcg/Act Spr 2 PUFF INH DAILY, INHALER Warfarin Sodium (Coumadin) 1 Mg Tab 1 MG PO DAILY, TAB Discontinued Medications: Diltiazem Hcl Coated Beads (Diltiazem Hcl Er) 180 Mg Cap 1 CAP PO DAILY for 30 Days, #30 CAP 5 Refills Metformin Hcl (Glucophage) 1,000 Mg Tab 1 TAB PO BID for 30 Days, #60 TAB 5 Refills [albuterol] () Discharge Exam Review of Systems: Constitutional: No fever, No chills Respiratory: + cough, + dyspnea on exertion, + dyspnea at rest Cardiovascular: + edema, No chest pain Physical Exam: General Appearance: WD/WN, + mild distress Respiratory/Chest: + decreased breath sounds, + crackles Cardiovascular: regular rate, rhythm, no murmur Abdomen / GI: normal bowel sounds, non tender, soft Extremities: no pedal edema, normal range of motion Hospital Course 77 y/o female with acute on chronic hypoxic respiratory failure and lung infiltrates seen on CXR, not clear if infectious or progressive fibrotic changes , not helped with antibiotics and steroids concern for inflammatory lung condition or fibrosis, initial symptoms were from acute on chronic diastolic heart failure PMHx of COPD, Interstitial Lung Disease, Pulmonary HTN, Diastolic CHF, Persistent Atrial Fibrillation, and T2DM who presented as a direct admission from [facility] for COPD exacerbation and possible pneumonia. possibility of gram negative pneumonia completed 9 days of antibiotics Acute on chronic hypoxic respiratory failure, will continue steroids per pulmonary med for long taper, keep on 40 until seen bu pulmonary as outpt has baseline crackles and likely always will acute on chronic diastolic heart failure and pulmonary htn, aggressive diuresis during her stay target dry weight to 80 kg or so- On chronic 4 L Atrial Fibrillation with RVR: improved will continue- Digoxin 0.125 mg daily, Diltiazem XL 180 mg daily, initially coumadin coagulopathy, now low after she was given vitamin k 2.5 mg on 04/17- T2DM: UNCONTROLLED, influenced by steroids, HTN:- Enalapril 10 mg daily daughters phone number is Total Time Spent: Greater than 30 minutes This includes examination of the patient, discharge planning, medication reconciliation, and communication with other providers. Discharge Instructions Please refer to the electronic Patient Visit Report (Discharge Instructions) for additional information. Additional Copies To Curt Callejas PA-C
== END 2017-04-25 12:35 | DRG 871 ==
LOC: C.MED 12:35 → UNDOADMIN 12:35 → C.MED 14:17
PROVIDERS: ADMIT Hospitalist; ATTEND Internal Medicine
DX: A41.9 Sepsis, unspecified organism (principal); J96.21 Acute and chronic respiratory failure with hypoxia; I50.33 Acute on chronic diastolic (congestive) heart failure; J15.6 Pneumonia due to other Gram-negative bacteria; J44.1 Chronic obstructive pulmonary disease with (acute) exacerbation; J44.0 Chronic obstructive pulmonary disease with (acute) lower respiratory infection; R04.2 Hemoptysis; I27.81 Cor pulmonale (chronic); I27.20 Pulmonary hypertension, unspecified; J84.10 Pulmonary fibrosis, unspecified; I48.91 Unspecified atrial fibrillation; I11.0 Hypertensive heart disease with heart failure; E83.42 Hypomagnesemia; E11.65 Type 2 diabetes mellitus with hyperglycemia; R04.0 Epistaxis; Z79.01 Long term (current) use of anticoagulants; Z79.82 Long term (current) use of aspirin; Z79.4 Long term (current) use of insulin; Z79.84 Long term (current) use of oral hypoglycemic drugs; Z79.899 Other long term (current) drug therapy